=== PATIENT | female | born 1945 | race Hispanic/Latino ===

== ENCOUNTER 2017-01-04 12:33 | Day surgery (SDC) | payer MEDICARE ==
[2017-01-04 12:53] VITALS: BMI 27.4
--- NOTE | 2017-01-04 13:35 | ED PDOC ---
Arrival/HPI - General Chief Complaint: Abdominal Pain Time Seen by Provider: 01/04/17 12:54 - History of Present Illness Narrative History of Present Illness (Text): 71F c/o increasing abdominal distension over the last few days. assoc w some diffuse discomfort. she has had the exact same sx in the past requiring paracentesis. no fever or chills. she has occasional nausea but nothing changed recently. occasional loose stools also unchanged. Past Medical History - Infectious Disease Hx of Infectious Diseases: None - Tetanus Immunization Tetanus Immunization: Unknown - Cardiac Hx Cardiac Disorders: Yes Hx Cardiac Arrhythmia: Yes (Afib) Hx Hypertension: Yes Hx Pacemaker: No Hx Peripheral Edema: Yes (ble +1) - Pulmonary Hx Respiratory Disorders: Yes Hx Bronchitis: Yes - Neurological Hx Neurological Disorder: No - HEENT Hx HEENT Disorder: Yes (WEARS RX GLASSES) Hx Cataracts: Yes Hx Glaucoma: Yes - Renal Hx Renal Disorder: No - Endocrine/Metabolic Hx Endocrine Disorders: Yes Hx Diabetes Mellitus Type 2: Yes (dx 8 yrs ago) - Hematological/Oncological Hx Blood Transfusions: No Hx Blood Transfusion Reaction: No - Integumentary Hx Dermatological Disorder: No (BILATERAL LEG EDEMA, ASCITES-PARACENTESIS SITE) - Musculoskeletal/Rheumatological Hx Musculoskeletal Disorders: Yes Hx Arthritis: Yes (knees) Hx Falls: Yes - Gastrointestinal Hx Gastrointestinal Disorders: Yes (GERD,HEPC,CIRRHOSIS OF LIVER,SOPHAGEAL VARICES,PUD) Hx Gall Bladder Disease: Yes (CHOLECYUSTECTOMY) Hx Gastroesophageal Reflux: Yes Hx Liver Failure: Yes (LIVER CIRRHOSIS, Ascities) Other/Comment: esophegeal varicies,C DIFF H/O - Genitourinary/Gynecological Hx Genitourinary Disorders: Yes (ESBL IN THE URINE,UTI,URGENCY) Hx Urinary Tract Infection: Yes - Psychiatric Hx Psychophysiologic Disorder: Yes (INSOMNIA) Hx Depression: No Hx Emotional Abuse: No Hx Physical Abuse: No Hx Substance Use: No - Surgical History Hx Appendectomy: Yes Hx Cardiac Catheterization: Yes (2011) Hx Cholecystectomy: Yes Hx Coronary Stent: Yes (2011) Hx Hysterectomy: Yes Hx Mastectomy: (right lumpectomy) - Anesthesia Hx Anesthesia: Yes Hx Anesthesia Reactions: No Hx Malignant Hyperthermia: No - Suicidal Assessment Feels Threatened In Home Enviroment: No Family/Social History Family/Social History: Other (nc) Smoking Status: Never Smoked Hx Alcohol Use: No Hx Substance Use: No Hx Substance Use Treatment: No Allergies/Home Meds Allergies/Adverse Reactions: Allergies ciprofloxacin Allergy (Severe, Verified 01/04/17 12:53) RASH nitrofurantoin Allergy (Severe, Verified 01/04/17 12:53) RASH Sulfa (Sulfonamide Antibiotics) Allergy (Severe, Verified 01/04/17 12:53) RASH Home Medications: Home Meds Medication Instructions Recorded Confirmed Insulin Detemir [Levemir] 20 unit SC DAILY 09/27/13 01/04/17 Latanoprost 0.005% Opht [Xalatan 1 drp OU HS 09/27/13 01/04/17 Opht] Apixaban [Eliquis] 5 mg PO DAILY 01/08/15 01/04/17 Ramipril [Altace] 10 mg PO DAILY 01/08/15 01/04/17 Letrozole [Femara] 2.5 mg PO DAILY 02/27/16 01/04/17 Insulin Aspart, Recombinant 10 units SUBCUT AC 08/03/16 01/04/17 [Novolog] Nadolol [Corgard] 20 mg PO BID 08/03/16 01/04/17 Dapagliflozin Propanediol [Farxiga] 5 mg PO DAILY 01/04/17 01/04/17 Review of Systems - Physician Review All systems were reviewed & negative as marked: Yes - Review of Systems Constitutional: absent: Fevers Respiratory: absent: SOB, Cough Cardiovascular: absent: Chest Pain Gastrointestinal: Abdominal Pain. absent: Stool Changes, Vomiting, Food Intolerance Genitourinary Female: absent: Dysuria, Frequency Physical Exam Vital Signs Reviewed: Yes Vital Signs Temp Pulse Resp BP Pulse Ox 01/04/17 16:25 98.1 F 70 17 125/51 L 100 01/04/17 14:00 71 18 114/69 100 01/04/17 12:47 99 F 75 18 106/59 L 97 Appearance: Positive for: Well-Appearing, Non-Toxic, Comfortable Pain Distress: None Mental Status: Positive for: Alert and Oriented X 3 Finger Stick Blood Glucose: 230 - Systems Exam Head: Present: Atraumatic Pupils: Present: PERRL Mouth: Present: Moist Mucous Membranes Respiratory/Chest: Present: Clear to Auscultation. No: Respiratory Distress, Accessory Muscle Use Cardiovascular: Present: Regular Rate and Rhythm Abdomen: Present: Tenderness (mild diffuse), Distention (ascites), Normal Bowel Sounds, Other (soft). No: Rebound, Guarding Neurological: Present: GCS=15, Motor Func Grossly Intact, Normal Sensory Function Skin: Present: Warm, Dry Psychiatric: Present: Alert, Oriented x 3 Medical Decision Making ED Course and Treatment: 01/04/17 13:[address] Munoz who already disc w pcp Dr Saha who sent pt in for paracentesis. she can be dc afterwards. 01/04/17 16:56 pt feels much better after para. fluid analysis not consistent w infection. culture pending. - Lab Interpretations Lab Results: 01/04/17 14:35 01/04/17 15:40 Lab Results 01/04/17 15:40: Sodium 137, Potassium 4.0, Chloride 102, Carbon Dioxide 28, Anion Gap 11, BUN 15, Creatinine 0.7, Est GFR ( Amer) > 60, Est GFR (Non- Af Amer) > 60, Random Glucose 206 H, Calcium 8.6, Total Bilirubin 1.3, AST 38, ALT 36, Alkaline Phosphatase 80, Total Protein 6.8, Albumin 3.0, Globulin 3.8, Albumin/Globulin Ratio 0.8 L, Lipase 129 01/04/17 14:55: Fluid Source Peritoneal, Fluid Appearance Clear, Fluid WBC 105.0 , Fluid RBC 2000.0 H, Fluid Tot Cell Count 100 H, Fluid Neutrophils 7.6 H, Fluid Lymphocytes 92.4 H, Fld Monocyte/Macrophag 0, Fluid Comment TEST NOT PERFORMED 01/04/17 14:35: WBC 4.0 L D, RBC 3.99, Hgb 11.9 L, Hct 36.0, MCV 90.2, MCH 29.8 , MCHC 33.1, RDW 14.4, Plt Count 56 L, MPV 10.0, Gran % 70.4 H, Lymph % (Auto) 19.5 L, [place] % (Auto) 7.3 H, Eos % (Auto) 2.5, Baso % (Auto) 0.3, Gran # 2.81, Lymph # 0.8 L, [place] # 0.3, Eos # 0.1, Baso # 0.01 01/04/17 13:13: POC Glucose (mg/dL) 250 H - RAD Interpretation Radiology Orders: 01/04/17 13:09 PARACENTESIS [US] Stat Disposition/Present on Arrival - Present on Arrival Any Indicators Present on Arrival: No History of DVT/PE: No History of Uncontrolled Diabetes: No Urinary Catheter: No History of Decub. Ulcer: No History Surgical Site Infection Following: None - Disposition Have Diagnosis and Disposition been Completed?: Yes Diagnosis: Ascitic fluid Disposition: HOME/ ROUTINE Disposition Time: 13:37 Patient Problems: Current Active Problems Problem Status Diagnosed Ascitic fluid Acute Condition: STABLE
[2017-01-04 14:01] VITALS: O2SAT 100
[2017-01-04 14:40] LABS: ADD MANUAL DIFF? NO
[2017-01-04 14:44] LABS: BASO # 0.01 K/mm3 (0.0-2.0); BASO % 0.3 % (0.0-3.0); EOS # 0.1 (0.0-0.7); EOS % 2.5 % (1.5-5.0); GRAN # 2.81 (1.4-6.5); GRAN % 70.4 % (50.0-68.0); LYMPH # 0.8 (1.2-3.4); LYMPH % 19.5 % (22.0-35.0); MEAN CELL VOLUME 90.2 fL (80.0-105.0); MEAN CORPUSCULAR HEMOGLOBIN 29.8 pg (25.0-35.0); MEAN CORPUSCULAR HGB CONC 33.1 g/dl (31.0-37.0); MONO # 0.3 (0.1-0.6); MONO % 7.3 % (1.0-6.0); PLATELET COUNT 56 10^3/uL (120.0-450.0); RED CELL DISTRIBUTION WIDTH 14.4 % (11.5-14.5)
[2017-01-04 15:20] LABS: BODY FLUID TYPE PERITONEAL
[2017-01-04 16:11] LABS: ALB/GLOB RATIO 0.8 (1.1-1.8); ALKALINE PHOSPHATASE 80 U/L (38-133); ALT/SGPT 36 U/L (7-56); AST/SGOT 38 U/L (15-39); BILIRUBIN,TOTAL 1.3 mg/dL (0.2-1.3); BLOOD UREA NITROGEN 15 mg/dL (7-21); CALCIUM 8.6 mg/dL (8.4-10.5); CARBON DIOXIDE 28 mmol/L (21-33); CHLORIDE 102 mmol/L (98-107); GFR AFRICAN-AMERICAN > 60; GLUCOSE,RANDOM 206 mg/dL (70-110); LIPASE 129 U/L (23-300); SODIUM 137 mmol/L (132-148); TOTAL PROTEIN 6.8 g/dL (5.8-8.3)
--- NOTE | 2017-01-04 16:19 | US ---
PROCEDURE: Ultrasound guided paracentesis. HISTORY: Cirrhosis. Recurrent ascites with abdominal pain and distension. Recurrent breast carcinoma. PHYSICIAN(S): Kenny Munoz MD. TECHNIQUE: The relative risks and indications for the procedure were explained to the patient and informed written consent obtained. Sonography of the abdomen was performed in a supine position. This revealed a moderate amount of non-loculated ascites, greatest in the right lower quadrant. A puncture site was selected and the area was prepped and draped in the usual sterile fashion. 1% Xylocaine was used to anesthetize the skin and soft tissues. A 7 [place] paracentesis catheter was trocared into the right lower quadrantand 3600 cc of jose fluid aspirated. A cytology a microbiology specimen were sent. IMPRESSION: Ultrasound-guided paracentesis in the right lower quadrant. 3600 cc of fluid were aspirated. Appropriate labs were sent.
[2017-01-04 16:22] LABS: BF GROSS APPEARANCE CLEAR (CLEAR); BODY FLUID TOTAL COUNT 100 (0-0)
[2017-01-04 16:26] VITALS: BP 125/51; PULSE 70; RESP 17; TEMP 98.1
== END 2017-01-04 17:19 | disposition short-term general hospital (02) ==
LOC: ED 12:33 → SDSVAS 15:06
PROVIDERS: ATTEND Radiology Vascular & Interventional Radiology
DX: R18.8 Other ascites (principal); R10.9 Unspecified abdominal pain; I48.91 Unspecified atrial fibrillation; I10 Essential (primary) hypertension; J40 Bronchitis, not specified as acute or chronic; H26.9 Unspecified cataract; H40.9 Unspecified glaucoma; E11.9 Type 2 diabetes mellitus without complications; M19.90 Unspecified osteoarthritis, unspecified site; K21.9 Gastro-esophageal reflux disease without esophagitis; B19.20 Unspecified viral hepatitis C without hepatic coma; K74.60 Unspecified cirrhosis of liver; I85.00 Esophageal varices without bleeding; Z90.49 Acquired absence of other specified parts of digestive tract; Z86.19 Personal history of other infectious and parasitic diseases; Z87.440 Personal history of urinary (tract) infections; G47.00 Insomnia, unspecified; Z95.5 Presence of coronary angioplasty implant and graft; Z90.710 Acquired absence of both cervix and uterus; Z79.01 Long term (current) use of anticoagulants; Z79.4 Long term (current) use of insulin; Z87.11 Personal history of peptic ulcer disease; R40.2412 Glasgow coma scale score 13-15, at arrival to emergency department; Z85.3 Personal history of malignant neoplasm of breast

== ENCOUNTER 2018-03-29 16:24 | Inpatient (IN) | payer MEDICARE ==
[2018-03-29 16:52] VITALS: BMI 25.1
--- NOTE | 2018-03-29 17:24 | ED PDOC ---
Arrival/HPI - General Chief Complaint: Abdominal Pain Time Seen by Provider: 03/29/18 16:53 Historian: Patient - History of Present Illness Narrative History of Present Illness (Text): 03/29/18 16:50 A 72 year old female, whose past medical history includes liver cirrhosis, presents to the emergency department complaining of abdominal pain. Patient reports she saw her PMD for checkup for pain, and was instructed to go to the ER immediately afterwards. She notes also experiencing lightheadedness, nausea, fever, and no cough. Patient denies any vomiting, dysuria, shortness of breath, or any other complaints. PMD: Dr. Saha Past Medical History - Provider Review Nursing Documentation Reviewed: Yes - Infectious Disease Hx of Infectious Diseases: None - Tetanus Immunization Tetanus Immunization: Unknown - Reproductive Menopause: Yes - Cardiac Hx Cardiac Disorders: Yes Hx Cardiac Arrhythmia: Yes (Afib) Hx Hypertension: Yes Hx Pacemaker: No Hx Peripheral Edema: Yes (ble +1) - Pulmonary Hx Respiratory Disorders: Yes Hx Bronchitis: Yes - Neurological Hx Neurological Disorder: No - HEENT Hx HEENT Disorder: Yes (WEARS RX GLASSES) Hx Cataracts: Yes Hx Glaucoma: Yes - Renal Hx Renal Disorder: No - Endocrine/Metabolic Hx Endocrine Disorders: Yes Hx Diabetes Mellitus Type 2: Yes (dx 8 yrs ago) - Hematological/Oncological Hx Blood Transfusions: No Hx Blood Transfusion Reaction: No - Integumentary Hx Dermatological Disorder: No (BILATERAL LEG EDEMA, ASCITES-PARACENTESIS SITE) - Musculoskeletal/Rheumatological Hx Musculoskeletal Disorders: Yes Hx Arthritis: Yes (knees) Hx Falls: Yes - Gastrointestinal Hx Gastrointestinal Disorders: Yes (GERD,HEPC,CIRRHOSIS OF LIVER,SOPHAGEAL VARICES,PUD) Hx Gall Bladder Disease: Yes (CHOLECYUSTECTOMY) Hx Gastroesophageal Reflux: Yes Hx Liver Failure: Yes (LIVER CIRRHOSIS, Ascities) Other/Comment: esophegeal varicies,C DIFF H/O - Genitourinary/Gynecological Hx Genitourinary Disorders: Yes (ESBL IN THE URINE,UTI,URGENCY) Hx Urinary Tract Infection: Yes - Psychiatric Hx Psychophysiologic Disorder: Yes (INSOMNIA) Hx Depression: No Hx Emotional Abuse: No Hx Physical Abuse: No Hx Substance Use: No - Surgical History Hx Appendectomy: Yes Hx Cardiac Catheterization: Yes (2011) Hx Cholecystectomy: Yes Hx Coronary Stent: Yes (2011) Hx Hysterectomy: Yes Hx Mastectomy: (right lumpectomy) - Anesthesia Hx Anesthesia: Yes Hx Anesthesia Reactions: No Hx Malignant Hyperthermia: No - Suicidal Assessment Feels Threatened In Home Enviroment: No Family/Social History - Physician Review Nursing Documentation Reviewed: Yes Family/Social History: No Known Family HX Smoking Status: Never Smoked Hx Alcohol Use: No Hx Substance Use: No Hx Substance Use Treatment: No Allergies/Home Meds Allergies/Adverse Reactions: Allergies ciprofloxacin Allergy (Severe, Verified 03/29/18 16:52) RASH nitrofurantoin Allergy (Severe, Verified 03/29/18 16:52) RASH Sulfa (Sulfonamide Antibiotics) Allergy (Severe, Verified 03/29/18 16:52) RASH Home Medications: Home Meds Medication Instructions Recorded Confirmed Insulin Detemir [Levemir] 20 unit SC DAILY 09/27/13 01/04/17 Latanoprost 0.005% Opht [Xalatan 1 drp OU HS 09/27/13 01/04/17 Opht] Apixaban [Eliquis] 5 mg PO DAILY 01/08/15 01/04/17 Ramipril [Altace] 10 mg PO DAILY 01/08/15 01/04/17 Letrozole [Femara] 2.5 mg PO DAILY 02/27/16 01/04/17 Insulin Aspart, Recombinant 10 units SUBCUT AC 08/03/16 01/04/17 [Novolog] Nadolol [Corgard] 20 mg PO BID 08/03/16 01/04/17 Dapagliflozin Propanediol [Farxiga] 5 mg PO DAILY 01/04/17 01/04/17 Review of Systems - Physician Review All systems were reviewed & negative as marked: Yes - Review of Systems Constitutional: Fevers Respiratory: absent: SOB Gastrointestinal: Abdominal Pain, Nausea. absent: Vomiting Genitourinary Female: absent: Dysuria Neurological: Dizziness (lightheadedness) Physical Exam - Physical Exam Narrative Physical Exam (Text): Constitutional: No acute distress. Head: Normocephalic. Atraumatic. Eyes: PERRL. ENT: Moist mucous membranes. Neck: Supple. Cardiovascular: Tachycardic. Chest: No tenderness. Respiratory: Clear to auscultation bilaterally. GI: Soft. Diffuse tenderness without guarding. Distended. Back: No CVA tenderness. Musculoskeletal: No tenderness or swelling of extremities. Skin: No rash. Neurologic: Alert, no focal deficit. Vital Signs Reviewed: Yes Vital Signs Temp Pulse Resp BP Pulse Ox 03/29/18 21:24 98 H 138/74 03/29/18 16:47 102.8 F H 116 H 20 157/79 H 98 Temperature: Febrile Blood Pressure: Hypertensive Pulse: Tachycardic Respiratory Rate: Normal Appearance: Positive for: Well-Appearing Pain Distress: None Mental Status: Positive for: Alert and Oriented X 3 Medical Decision Making ED Course and Treatment: 03/29/18 16:54 Impression: 72 year old female with abdominal pain, fever, and ascites. Plan: -- EKG -- Chest X-ray -- Labs -- Venous Blood Gas -- Blood Culture -- Urine Culture -- Urinalysis -- Reassess and disposition Prior Visits: Notes and results from previous visits were reviewed. Patient was last seen in the emergency department on 01/04/2017 for abdominal distention. Patient was discharged home with diagnosis of ascitic fluid. Progress Notes: 03/29/2018 17:29 Chest X-ray IMPRESSION: Stable chronic prominence of the bilateral interstitial markings. no focal consolidation or pleural effusion. Dictator: Greg Saha recommends Dr. Munoz and Dr. [place] for paracentesis, accepts admission to her service. Cefepime/Flagyl initiated. Admission was delayed as patient was difficult to obtain IV access and refused any access in the groin/legs/neck. US for peripheral IV was attempted without success, and patient had access established by midline at 7pm. - Lab Interpretations Lab Results: 03/29/18 20:35 03/29/18 20:35 Lab Results 03/29/18 20:35: Sodium 138, Chloride 103, Potassium 4.1, Carbon Dioxide 24, Anion Gap 14, BUN 25 H, Creatinine 0.8, Est GFR ( Amer) > 60, Est GFR ( Non-Af Amer) > 60, Random Glucose 290 H, Calcium 8.3 L, Total Bilirubin 4.4 H, AST 26, ALT 26, Alkaline Phosphatase 63, Total Protein 6.8, Albumin 3.1, Globulin 3.7, Albumin/Globulin Ratio 0.9 L, Lipase 22 L 03/29/18 20:35: pO2 84 H, VBG pH 7.43, VBG pCO2 39.0 L, VBG HCO3 25.9, VBG Total CO2 27.1, VBG O2 Sat (Calc) 99.6 H, VBG Base Excess 1.5, VBG Potassium 4.1 , Sodium 136.0, Chloride 106.0, Glucose 312 H, Lactate 2.0, FiO2 21.0, Venous Blood Potassium 4.1 03/29/18 20:35: PT 18.4 H, INR 1.60 H, APTT 31.1 03/29/18 20:35: WBC 10.0 D, RBC 3.17 L, Hgb 9.1 L, Hct 27.4 L, MCV 86.4, MCH 28.7, MCHC 33.2, RDW 15.6 H, Plt Count 50 L, MPV 9.5, Gran % 89.9 H, Lymph % ( Auto) 5.9 L, [place] % (Auto) 3.9, Eos % (Auto) 0.2 L, Baso % (Auto) 0.1, Gran # 9.02 H, Lymph # (Auto) 0.6 L, [place] # (Auto) 0.4, Eos # (Auto) 0.0, Baso # (Auto ) 0.01 - RAD Interpretation Radiology Orders: 03/29/18 16:55 CHEST PORTABLE [RAD] Stat - Medication Orders Current Medication Orders: Acetaminophen (Tylenol 325mg Tab) 650 mg PO Q6H PRN PRN Reason: Fever >100.4 F Cefepime HCl (Maxipime 1gm) 1 gm in 100 mls @ 100 mls/hr IVPB Q12 SINAN PRN Reason: Protocol Metronidazole (Flagyl) 250 mg in 50 mls @ 100 mls/hr IVPB Q8 SINAN PRN Reason: Protocol Stop: 04/03/18 22:01 Sodium Chloride (Sodium Chloride 0.45%) 1,000 mls @ 75 mls/hr IV .[id number] [facility] Last Admin: 03/29/18 21:16 Dose: 75 mls/hr eMAR Start Stop Document 03/29/18 21:16 RD (Rec: 03/29/18 21:16 RD [id number]) Intravenous Solution Start Date 03/29/18 Start Time 21:16 Insulin Human Lispro (Humalog Med) 0 units SC ACHS SINAN PRN Reason: Protocol Insulin Human Regular (Humulin R Med) 0 units SC ACHS SINAN PRN Reason: Protocol Letrozole (Femara) 2.5 mg PO DAILY SINAN Nadolol (Corgard) 20 mg PO BID SINAN Last Admin: 03/29/18 21:24 Dose: 20 mg MAR Pulse and Blood Pressure Document 03/29/18 21:24 RD (Rec: 03/29/18 21:25 RD [id number]) Pulse Pulse Rate (60-90) 98 Blood Pressure Blood Pressure (100/60-150/90) 138/74 Ondansetron HCl (Zofran Inj) 4 mg IVP Q6H PRN PRN Reason: Nausea/Vomiting Pantoprazole Sodium (Protonix Inj) 40 mg IVP DAILY SINAN - Scribe Statement The provider has reviewed the documentation as recorded by the Samanta Alfonso Provider Scribe Attestation: All medical record entries made by the Scribe were at my direction and personally dictated by me. I have reviewed the chart and agree that the record accurately reflects my personal performance of the history, physical exam, medical decision making, and the department course for this patient. I have also personally directed, reviewed, and agree with the discharge instructions and disposition. Disposition/Present on Arrival - Present on Arrival Any Indicators Present on Arrival: No History of DVT/PE: No History of Uncontrolled Diabetes: No Urinary Catheter: No History of Decub. Ulcer: No History Surgical Site Infection Following: None - Disposition Have Diagnosis and Disposition been Completed?: Yes Diagnosis: Ascitic fluid, Fever Disposition: HOSPITALIZED Disposition Time: 21:28 Patient Plan: Admission, Telemetry Condition: GUARDED Forms: [employer] (Guatemalan)
--- NOTE | 2018-03-29 17:30 | RAD ---
HISTORY: fever COMPARISON: Chest radiograph dated 08/14/2015. FINDINGS: LUNGS: Stable chronic prominence of the bilateral interstitial markings. No focal consolidation. PLEURA: No significant pleural effusion identified, no pneumothorax apparent. CARDIOVASCULAR: Atherosclerotic aortic calcifications. Cardiomediastinal silhouette stably enlarged. OSSEOUS STRUCTURES: Unchanged. VISUALIZED UPPER ABDOMEN: Normal. OTHER FINDINGS: Right axillary surgical clips. IMPRESSION: Stable chronic prominence of the bilateral interstitial markings. No focal consolidation or pleural effusion.
[2018-03-29 21:03] LABS: VENOUS BLOOD GAS BASE EXCESS 1.5 mmol/L (0.0-2.0); VENOUS BLOOD GAS PO2 84 mm/Hg (30-55); VENOUS BLOOD PH 7.43 (7.32-7.43)
[2018-03-29 21:06] LABS: BASO # 0.01 K/mm3 (0.0-2.0); BASO % 0.1 % (0.0-3.0); EOS % 0.2 % (1.5-5.0); GRAN # 9.02 (1.4-6.5); GRAN % 89.9 % (50.0-68.0); HEMOGLOBIN 9.1 g/dL (12.0-16.0); LYMPH # 0.6 (1.2-3.4); LYMPH % 5.9 % (22.0-35.0); MEAN CELL VOLUME 86.4 fl (80.0-105.0); MEAN CORPUSCULAR HEMOGLOBIN 28.7 pg (25.0-35.0); MEAN CORPUSCULAR HGB CONC 33.2 g/dl (31.0-37.0); MEAN PLATELET VOLUME 9.5 fl (7.0-11.0); MONO # 0.4 (0.1-0.6); MONO % 3.9 % (1.0-6.0); RBC 3.17 10^6/uL (3.5-6.1); RED CELL DISTRIBUTION WIDTH 15.6 % (11.5-14.5)
[2018-03-29 21:15] LABS: ALB/GLOB RATIO 0.9 (1.1-1.8); ALBUMIN 3.1 g/dL (3.0-4.8); ALT/SGPT 26 U/L (7-56); AST/SGOT 26 U/L (14-36); BLOOD UREA NITROGEN 25 mg/dL (7-21); CALCIUM 8.3 mg/dL (8.4-10.5); GFR AFRICAN-AMERICAN > 60; GFR NON-AFRICAN AMERICAN > 60; LIPASE 22 U/L (23-300)
[2018-03-29] MEDS: Sodium Chloride 0.45% 1,000 ML IV SCH (21:16)
[2018-03-29 21:18] LABS: INR 1.6 (0.93-1.08); PARTIAL THROMBOPLASTIN TIME 31.1 Seconds (25.1-36.5); PROTHROMBIN TIME 18.4 SECONDS (9.4-12.5)
[2018-03-29] MEDS ORDERED: Insulin Reg-MEDIUM-Coverage SC SCH (22:00)
[2018-03-29] MEDS: Insulin Lispro (humaLOG) MEDIUM Coverage SC SCH (22:44)
[2018-03-29] MEDS: metroNIDAZOLE IV 250mg/50 ml 250 MG/50 ML BAG IVPB SCH (22:45)
[2018-03-29] MEDS: Cefepime 1gm in NS 100ml 1 GM/100 ML BAG IVPB SCH (23:25)
[2018-03-30 00:17] LABS: URINE BILIRUBIN NEGATIVE (NEGATIVE); URINE BLOOD LARGE (NEGATIVE); URINE GLUCOSE (UA) >=1000 mg/dL (NEGATIVE); URINE LEUKOCYTE ESTERASE NEGATIVE Leu/uL (NEGATIVE); URINE PROTEIN 30 mg/dL (<30 mg/dL)
[2018-03-30 00:19] LABS: URINE APPEARANCE CLEAR (CLEAR); URINE COLOR YELLOW (YELLOW)
[2018-03-30 00:29] LABS: URINE WBC 0 - 2 /hpf (0-6)
[2018-03-30 00:30] LABS: URINE BACTERIA RARE (NEG)
--- NOTE | 2018-03-30 04:13 | HP ---
HISTORY OF PRESENT ILLNESS: The patient is a 72-year-old lady who was seen in office earlier complaining of abdominal pain, discomfort, nausea, unable to hold anything. She is extremely weak and tired. The patient had cirrhotic ascites and paracentesis done last week . Since then, she is having abdominal pain, vague and is severe at times. Pain is diffused. No relation with eating. Has no appetite. Has vomited few times. Does complain of having fever. She had almost 99 plus fever last night and in office it was 99.2. So she was referred to emergency room for further evaluation PAST MEDICAL HISTORY: 1. She has very long complicated history including coronary artery disease, status post multiple angioplasty, 2. Chronic AFib, on anticoagulant. 3. Hypertension. 4. History of peptic ulcer disease with bleeding ulcer in the past. 5. Cirrhosis of liver. 6. Thrombocytopenia. 7. Anemia. 8. Chronic kidney disease. 9. History of breast CA, status post mastectomy, just recently finished chemotherapy. 10. Thrombocytopenia. 11. History of glaucoma. 12. Non-insulin dependent diabetes. ALLERGIES: SHE IS ALLERGIC TO CIPRO, NITROFURANTOIN, SULFONAMIDE. MEDICATIONS AT HOME: She is on spironolactone 50 mg twice a day, ramipril 10 mg daily, nadolol 20 mg twice a day, Sonata 2.5 daily, Xalatan eyedrops. She is on Levemir 20 units at bedtime, insulin 10 units before each meal. She is on 5 mg daily, Eliquis 5 mg daily. SOCIAL HISTORY: She is , lives with her , just smoked in the remote past. She used to socially drink. REVIEW OF SYSTEMS: Significant for generalized weakness, poor appetite, nausea and vomiting and having fever at home. PHYSICAL EXAMINATION: GENERAL: She is awake, alert, oriented. VITAL SIGNS: Temperature of 102.8, pulse 160, respiration 20, blood pressure 157/79. LUNGS: Bilateral fair airflow. No rhonchi or crackle. HEART: S1, S2 audible. ABDOMEN: Soft. She has ascites. She is status post right radical mastectomy with lymph node dissection. Bilateral leg +1 edema. LABORATORY DATA: Labs are pending yet. X-ray of chest, chronic prominence of bilateral interstitial markings. No focal consolidation or pleural effusion. ASSESSMENT AND PLAN: 1. Abdominal pain, status post paracentesis a week ago. Rule out spontaneous bacterial peritonitis. 2. Chronic atrial fibrillation. 3. Cardiac cirrhosis. 4. Chronic ascites requiring intermittent paracentesis. 5. Coronary artery disease, status post multiple angioplasty. 6. Peptic ulcer disease. 7. History of carcinoma of breast, status post right lumpectomy. She recently finished chemotherapy. 8. Chronic anemia. 9. Thrombocytopenia. PLAN: I will start empirically on IV antibiotic and hydrate her urgently, Zofran as needed. GI consult by Dr. Martines. Cardiology consult by Dr. Meredith has been requested. We will follow up electrolytes, follow up H and H. Wilda Saha MD
[2018-03-30] MEDS: metroNIDAZOLE IV 250mg/50 ml 250 MG/50 ML BAG IVPB SCH (05:21)
--- NOTE | 2018-03-30 07:29 | CP.PCM.CON ---
History of Present Illness - History of Present Illness History of Present Illness: GI Consult Note for Dr. Ge Wells Deuce Valladares, PGY-3 IM This is a 72 yo F with extensive PMH, including Cirrhosis (suspected 2/2 Hep C) with recurrent ascites, chronic AFib on Eliquis, CAD s/p stent, HTN, DM, PUD with hx bleeding ulcer, CKD, and Breast Ca s/p partial resection and chemo, and anemia who presents with complaint of worsening abdominal pain, febrile sensation. Patient reports that she underwent a routine paracentesis approx 1 week ago (undergoes biweekly paracentesis for chronic ascites), but instead of the relief she customarily gets for several days post-paracentesis, she has felt malaised since with worsening abdominal pain and intermittent sense of abdominal burning. Reports nausea and minimal PO intake for last 3 days, but is able to tolerate PO fluids (water mostly), and denies any episodes of emesis , melena, hematochezia. Reports chronic diarrhea, unchanged, for which her outpt GI physician instructed her to take Imodium (reports no relief of sx). No changes in stool color, no jaundice/scleral icterus reported by pt or at bedside. Still making regular urine, no dysuria, hematuria, frequency, cloudy or foul smelling urine. Pt on eliquis for chronic afib, so easily bruises at baseline, but does not report any change from this baseline. Subjective fevers at home, only measured today prior to presentation to [facility] [place] [facility], 100.6F at home orally (102.8F orally on arrival to ED). No appreciable erythema /redness or point tenderness of abdomen as per pt. All other ROS in 12-system review negative. Last EGD was 1 yr ago as per patient, not in records system here. Pt reports most of her current medical workups and procedures are done in [place]. Last EGD on file here is from 2011 (grade II distal esophageal varices, 5mm polyp in distal stomach, portal hypertensive gastropathy in body and fundus, no biopsy due to low plt count) PMH: as above PSH: bi-weekly paracentesis, appendectomy, cholecystectomy, hysterectomy, Cardiac cath and stent placement, R breast lumpectomy Soc Hx: denies tobacco, alcohol, illicits, lives with PMD: Dr. Saha GI: Dr. Chris Self ([place]), previously Dr. Martines Review of Systems - Review of Systems All systems: reviewed and no additional remarkable complaints except (as per HPI ) Past Patient History - Infectious Disease Hx of Infectious Diseases: None - Tetanus Immunizations Tetanus Immunization: Unknown - Past Social History Smoking Status: Never Smoked - CARDIAC Hx Cardiac Disorders: Yes Hx Cardia Arrhythmia: Yes (Afib) Hx Hypertension: Yes Hx Pacemaker: No Hx Peripheral Edema: Yes - PULMONARY Hx Respiratory Disorders: No (denies) - NEUROLOGICAL Hx Neurological Disorder: No - HEENT Hx HEENT Problems: Yes (WEARS RX GLASSES) Hx Cataracts: Yes (B/L SX) Hx Glaucoma: Yes (B/L SX) - RENAL Hx Chronic Kidney Disease: No - ENDOCRINE/METABOLIC Hx Endocrine Disorders: Yes Hx Diabetes Mellitus Type 2: Yes (dx 8 yrs ago) - HEMATOLOGICAL/ONCOLOGICAL Hx Blood Disorders: Yes Hx Anemia: Yes Hx Cancer: Yes (breast) Hx Chemotherapy: Yes Hx Cirrhosis: Yes (ASCITIS) Hx Hepatitis C: Yes (from blood transfusion) - INTEGUMENTARY Hx Dermatological Problems: No - MUSCULOSKELETAL/RHEUMATOLOGICAL Hx Musculoskeletal Disorders: Yes Hx Arthritis: Yes (knees) Hx Fractures: Yes (RIGHT ANKLE) - GASTROINTESTINAL Hx Gastrointestinal Disorders: Yes Hx Gall Bladder Disease: Yes Hx Gastroesophageal Reflux: Yes Hx Liver Failure: Yes - GENITOURINARY/GYNECOLOGICAL Hx Genitourinary Disorders: Yes Hx Urinary Tract Infection: Yes - PSYCHIATRIC Hx Psychophysiologic Disorder: Yes (INSOMNIA) Hx Depression: No Hx Emotional Abuse: No Hx Physical Abuse: No - SURGICAL HISTORY Hx Surgeries: Yes Hx Appendectomy: Yes Hx Cardiac Catheterization: Yes (2011) Hx Cholecystectomy: Yes Hx Coronary Stent: Yes (2011) Hx Hysterectomy: Yes Hx Mastectomy: Yes (RIGHT) Hx Orthopedic Surgery: No - ANESTHESIA Hx Anesthesia: Yes Hx Anesthesia Reactions: No Hx Malignant Hyperthermia: No Meds Allergies/Adverse Reactions: Allergies Allergy/AdvReac Type Severity Reaction Status Date / Time ciprofloxacin Allergy Severe RASH Verified 03/29/18 16:52 nitrofurantoin Allergy Severe RASH Verified 03/29/18 16:52 Sulfa (Sulfonamide Allergy Severe RASH Verified 03/29/18 16:52 Antibiotics) - Medications Medications: Current Medications Acetaminophen (Tylenol 325mg Tab) 650 mg PO Q6H PRN PRN Reason: Fever >100.4 F Cefepime HCl (Maxipime 1gm) 1 gm in 100 mls @ 100 mls/hr IVPB Q12 SINAN PRN Reason: Protocol Last Admin: 03/29/18 23:25 Dose: 100 mls/hr Metronidazole (Flagyl) 250 mg in 50 mls @ 100 mls/hr IVPB Q8 SINAN PRN Reason: Protocol Stop: 04/03/18 22:01 Last Admin: 03/30/18 05:21 Dose: 100 mls/hr Sodium Chloride (Sodium Chloride 0.45%) 1,000 mls @ 75 mls/hr IV .[id number] [facility] Last Admin: 03/29/18 21:16 Dose: 75 mls/hr Insulin Human Lispro (Humalog Med) 0 units SC ACHS SINAN PRN Reason: Protocol Last Admin: 03/29/18 22:44 Dose: Not Given Letrozole (Femara) 2.5 mg PO DAILY [facility] Nadolol (Corgard) 20 mg PO BID [facility] Last Admin: 03/29/18 21:24 Dose: 20 mg Ondansetron HCl (Zofran Inj) 4 mg IVP Q6H PRN PRN Reason: Nausea/Vomiting Pantoprazole Sodium (Protonix Inj) 40 mg IVP DAILY [facility] Physical Exam - Constitutional Appears: Non-toxic, No Acute Distress - Head Exam Head Exam: ATRAUMATIC, NORMAL INSPECTION, NORMOCEPHALIC - Eye Exam Eye Exam: EOMI, Normal appearance. absent: Conjunctival injection, Scleral icterus Pupil Exam: absent: Fixed, Irregular - ENT Exam ENT Exam: Mucous Membranes Moist - Neck Exam Neck exam: Positive for: Normal Inspection - Respiratory Exam Respiratory Exam: Clear to Auscultation Bilateral, NORMAL BREATHING PATTERN. absent: Accessory Muscle Use, Chest Wall Tenderness, Decreased Breath Sounds, Rales, Rhonchi, Wheezes, Respiratory Distress, Stridor - Cardiovascular Exam Cardiovascular Exam: REGULAR RHYTHM (hx paroxysmal afib, regular rhythm vs rate controlled with HR 60's during exam), RRR, +S1, +S2. absent: Bradycardia, Tachycardia, Irregular Rhythm, JVD, +S4 - GI/Abdominal Exam Additional comments: distant-sounding but definitely present bowel sounds distended abdomen, position dependent with appreciable fluid wave, firm but not rigid abdomen warm to palpation as compared to trunk/extremities/back mild tenderness diffusely worsened with palpation, most predominantly right upper and lower quadrants, not guarding unable to palpate liver or spleen due to abdominal distension - Extremities Exam Extremities exam: Positive for: pedal edema (+1 pitting edema in bilateral LE from ankles to bottom 2/3rd of shins), pedal pulses present (+2 dorsalis pedis, unable to palpate posterior tibials). Negative for: calf tenderness, joint swelling, tenderness - Back Exam Back exam: absent: CVA tenderness (L), CVA tenderness (R), paraspinal tenderness - Neurological Exam Additional comments: awake and alert, following all commands appropriately, moving all extremities spontaneously able to change position from lying in bed to sitting on edge of bed and vice- versa without overt difficulty or issue, motor appears grossly intact - Psychiatric Exam Psychiatric exam: Normal Affect, Normal Mood - Skin Skin Exam: Dry, Intact, Normal Color, Warm Results - Vital Signs Recent Vital Signs: Last Vital Signs Temp 97.8 F 03/30/18 05:38 Pulse 64 03/30/18 05:38 Resp 18 03/30/18 05:38 BP 110/61 03/30/18 05:38 Pulse Ox 99 03/30/18 05:38 - Labs Result Diagrams: 03/30/18 08:00 03/30/18 08:00 Labs: Laboratory Results - last 24 hr 03/29/18 22:21 POC Glucose (mg/dL) 287 H Assessment & Plan - Assessment and Plan (Free Text) Assessment: This is a 72 yo F with extensive PMH, including Cirrhosis (suspected 2/2 Hep C) with recurrent ascites, chronic AFib on Eliquis, CAD s/p stent, HTN, DM, PUD with hx bleeding ulcer, CKD, and Breast Ca s/p partial resection and chemo, and anemia who presents with complaint of worsening abdominal pain, febrile sensation. GI was consulted for symptoms highly concerning for SBP. Plan: including Cirrhosis (suspected 2/2 Hep C) with recurrent ascites chronic AFib on Eliquis DM PUD with hx bleeding ulcer CKD Breast Ca s/p partial resection and chemo Thrombocytopenia Suspected SBP, possible sepsis -Story and symptoms highly concerning for SBP, patient empirically covered with Cefepime and Flagyl pending ID's recs -CT abd/pelvis ordered, f/u -Thrombocytopenia to 38, likely 2/2 cirrhosis +/- effect of sepsis; recommend holding Eliquis given hx GI bleed, thrombocytopenia, and likely pending paracentesis -WBCs only 10 on admission, but as per prior charting, pt is frequently leukopenic between 2-4, so WBC count of 10 may represent an elevation 2/2 infectious process in this pt -IR consulted for paracentesis, ID also following this pt -Hep C PCR ordered to confirm presence of Hep C in this pt (r/o RA misdiagnosed as hep C due to test cross-reactivity); AFP ordered -Hold further tylenol due to cirrhosis, use active cooling measures as needed -Pancreatitic enzyme supplementation ordered, 5000 units with meals -Abd Duplex US ordered, f/u Patient seen, reviewed, and discussed with attending, Dr. Carolina
[2018-03-30] MEDS: Sodium Chloride 0.45% 1,000 ML IV SCH (07:40)
[2018-03-30] MEDS: Insulin Lispro (humaLOG) MEDIUM Coverage SC SCH ×4 (07:43→22:00)
[2018-03-30 08:25] LABS: VENOUS BLOOD GAS BASE EXCESS 2.7 mmol/L (0.0-2.0); VENOUS BLOOD GAS PO2 110 mm/Hg (30-55); VENOUS BLOOD PH 7.47 (7.32-7.43)
[2018-03-30 09:20] LABS: BASO # 0.01 K/mm3 (0.0-2.0); BASO % 0.2 % (0.0-3.0); EOS # 0.1 (0.0-0.7); EOS % 1.6 % (1.5-5.0); GRAN % 83.8 % (50.0-68.0); HEMOGLOBIN 8.8 g/dL (12.0-16.0); LYMPH # 0.3 (1.2-3.4); LYMPH % 6.4 % (22.0-35.0); MEAN CELL VOLUME 86.6 fl (80.0-105.0); MEAN CORPUSCULAR HEMOGLOBIN 29.5 pg (25.0-35.0); MEAN CORPUSCULAR HGB CONC 34.1 g/dl (31.0-37.0); MEAN PLATELET VOLUME 9.3 fl (7.0-11.0); MONO # 0.4 (0.1-0.6); RBC 2.98 10^6/uL (3.5-6.1); RED CELL DISTRIBUTION WIDTH 15.5 % (11.5-14.5)
[2018-03-30] MEDS: Cefepime 1gm in NS 100ml 1 GM/100 ML BAG IVPB SCH (09:27)
[2018-03-30 09:39] LABS: ALB/GLOB RATIO 0.8 (1.1-1.8); ALBUMIN 2.6 g/dL (3.0-4.8); ALT/SGPT 23 U/L (7-56); AST/SGOT 21 U/L (14-36); BLOOD UREA NITROGEN 28 mg/dL (7-21); CALCIUM 7.8 mg/dL (8.4-10.5); GFR AFRICAN-AMERICAN > 60; GFR NON-AFRICAN AMERICAN > 60
[2018-03-30] MEDS ORDERED: Iohexol 240 (50 ml) ONE (09:43)
[2018-03-30 09:49] LABS: PLATELET COUNT 34 10^3/uL (120.0-450.0)
[2018-03-30 10:48] LABS: INR 1.56 (0.93-1.08); PARTIAL THROMBOPLASTIN TIME 23.9 Seconds (25.1-36.5); PROTHROMBIN TIME 18.1 SECONDS (9.4-12.5)
--- NOTE | 2018-03-30 12:57 | CT ---
PROCEDURE: CT Abdomen and Pelvis with contrast HISTORY: ABDOMINAL PAIN Relevant surgical history: Appendectomy, cholecystectomy and hysterectomy. Relevant medical history: Recurrent breast carcinoma. COMPARISON: 08/14/2015 CT abdomen and pelvis TECHNIQUE: Oral contrast only. Radiation dose: Total exam DLP = 682.28 mGy-cm. This CT exam was performed using one or more of the following dose reduction techniques: Automated exposure control, adjustment of the mA and/or kV according to patient size, and/or use of iterative reconstruction technique. FINDINGS: LOWER THORAX: Prior right mastectomy. This surgical procedure occurred since the prior study. Diffusely edematous left breast. Edema, skin thickening and possible left breast mass also identified.The changes in the left breast are new. LIVER: Cirrhotic liver markedly contracted with irregular contour. Similar findings seen previously although the liver has assumed a more contracted state since the prior study. GALLBLADDER AND BILE DUCTS: Status post cholecystectomy. No abnormality is seen in the gallbladder fossa. Bowel PANCREAS: Unremarkable. No gross lesion or ductal dilatation. SPLEEN: Splenomegaly. Orthogonal measurements 10.5 x 17.2 x 16.3 cm. ADRENALS: Unremarkable. No mass. KIDNEYS AND URETERS: Unremarkable. No hydronephrosis. No solid mass. VASCULATURE: Unremarkable. No aortic aneurysm. BOWEL: Unremarkable. No obstruction. No gross mural thickening. APPENDIX: Prior appendectomy PERITONEUM: Large volume intra-abdominal pelvic ascites. Volume of ascitic fluid is substantially larger on the current study compared to the prior examination. Mean Hounsfield unit values for the abdominal and pelvic ascites do not exceed 12. This represents uncomplicated ascitic fluid. LYMPH NODES: Slightly enlarged inguinal lymph nodes particularly on the right. No discernible abdominal or pelvic adenopathy. BLADDER: Unremarkable. REPRODUCTIVE: Prior hysterectomy BONES: No acute fracture. OTHER FINDINGS: Diffuse cutaneous subcutaneous edema and anasarca. IMPRESSION: Large volume ascites, uncomplicated. This is substantially larger than that seen previously. Progressive cirrhotic changes in the liver. Stable splenomegaly. CT findings of prior right mastectomy, increase in size of the left breast which is diffusely edematous and there is likely underlying left breast mass.
--- NOTE | 2018-03-30 14:08 | PN ---
DATE: 03/30/2018 SUBJECTIVE: The patient states that she is feeling better. She has improvement of her chills. Her temperature is improved. She has no complaints of any chest pain. No shortness of breath. PHYSICAL EXAMINATION: VITAL SIGNS: Temperature is 100.4, pulse of 60, blood pressure 132/73. GENERAL: The patient is lying in bed, flat, comfortable. HEENT: No oral lesion. Anicteric sclerae. Moist mucosa. NECK: No JVD, adenopathy, or thyromegaly. CARDIOVASCULAR: S1 and S2, regular. No murmurs, rubs, or gallops. LUNGS: Clear to auscultation bilaterally. No wheeze, rales, or rhonchi. ABDOMEN: Bowel sounds are positive. Soft, nontender and nondistended. EXTREMITIES: No cyanosis or clubbing. 1+ edema in the lower extremity. LABORATORY DATA: Cultures are pending. White count of 5, hemoglobin is 8.8, platelet count is 34. Chemistry shows a sodium of 136, potassium is 4, creatinine is 0.7. ASSESSMENT: 1. Fever. 2. Atrial fibrillation. 3. Cirrhosis. 4. Chronic ascites. 5. Coronary artery disease. 6. Peptic ulcer disease. 7. Chronic anemia. 8. Thrombocytopenia. 9. Breast cancer history. 10. Lower extremity edema. PLAN: The patient is currently admitted to the hospital. She is receiving IV fluids. I will discontinue her IV fluids at this time because she has a history of ascites. She is on nadolol for her cirrhosis and her portal hypertension. She is going to continue with letrozole. She is on meropenem for antibiotics. She is on Protonix daily. She is on Tylenol for her fever. She is on Zofran for nausea. She is on heart-healthy diet. CT of the abdomen has been ordered and is pending. She is being followed by Dr. Tran and by Dr. Carolina. She is going to need paracentesis. Dr. Kenny Munoz has been consulted. The patient does have 1+ edema in the lower extremity. The patient is not complaining of any pain. We will need to rule out subacute bacterial endocarditis. Florencio Bravo MD
[2018-03-30] MEDS: Meropenem IV 1 gm in NS 50 ML IVPB SCH ×2 (14:37→21:56)
[2018-03-30] MEDS: oxyCODONE 5 mg Immediate Release Tab PO PRN ×2 (14:48→21:56)
[2018-03-30] MEDS: Sucralfate 1 gm/10 ml Oral Susp UD PO SCH ×2 (17:18→21:56)
[2018-03-30] MEDS: Amylase/Lipase/Protease 5,000 Units ECC PO SCH (17:21)
--- NOTE | 2018-03-30 19:04 | CON ---
DATE: 03/30/2018 LOCATION: The patient is seen 275, bed 1. CHIEF COMPLAINT: Fever and abdominal pain x2 days' duration. HISTORY OF PRESENT ILLNESS: This is a 72-year-old female with a history of end-stage liver disease with liver cirrhosis secondary to hepatitis C, history of coronary artery disease, atrial fibrillation, hypertension, diabetes mellitus, anemia, history of peptic ulcer disease, GI bleed, glaucoma, cataracts, history of ESBL E. coli urinary tract infection, and pyelonephritis, who is admitted now with abdominal pain and found to have fevers of 102 and Infectious Disease consultation requested. REVIEW OF SYSTEMS: Reveals the patient's abdominal pain is diffuse, and nausea, fevers, chills. No headaches or blurred vision. No neck pain or sore throat. Review of systems reveals a 12-point review of systems is performed. PAST MEDICAL HISTORY: Significant for end-stage liver disease, liver cirrhosis, hepatitis C, atrial fibrillation, coronary artery disease, hypertension, cataract, glaucoma, diabetes, peptic ulcer disease, GI bleed, anemia, thrombocytopenia, GERD, ESBL E. coli, pyelonephritis. PAST SURGICAL HISTORY: Significant for cardiac catheterization with stent placement, right mastectomy, cholecystectomy, appendectomy. ALLERGIES: INCLUDE CIPRO, NITROFURANTOIN AND SULFA WHICH SHE DEVELOPS A RASH. MEDICATIONS AT HOME: Include Corgard, Femara, spironolactone, insulin. PHYSICAL EXAMINATION GENERAL: The patient is in bed, appearing chronically ill, weak. VITAL SIGNS: Temperature of 100.4, T max is 102.8; heart rate is 64, it was up to 114; respiratory rate of 20; blood pressure is 130/70. The patient is saturating at 96% O2. HEENT: Unremarkable. NECK: Supple. LUNGS: Have decreased breath sounds. HEART: Normal S1 and S2. ABDOMEN: Mild tenderness. No rebound, no guarding, no masses; however there is tenderness. Bowel sounds are present. LABORATORY DATA: Reveals a white count of 10,000, hemoglobin of 9, platelets of 50 and coagulation is noted. Chemistries reveal a BUN of 25, creatinine of 0.8, lipase is 22. Urinalysis is 0-2 wbc's, large blood and there is proteinuria and is negative for leukocyte esterase and negative for nitrites. Chest x-ray is reported to be interstitial markings, but negative focal consolidation. ASSESSMENT AND PLAN: A 72-year-old female with hepatitis C, end-stage liver cirrhosis, coronary artery disease, atrial fibrillation, hypertension, diabetes, peptic ulcer disease, gastrointestinal bleed and anemia, thrombocytopenia, gastroesophageal reflux disease, history of extended-spectrum beta-lactamase Escherichia coli, pyelonephritis, presenting with a temperature of 102.8, tachycardia and abdominal pain with number one as sepsis with gastrointestinal sources, must rule out spontaneous bacterial peritonitis and the patient is scheduled for a CAT scan of the abdomen and pelvis. The blood and urine cultures are ordered and we will start the patient empirically on meropenem. Pending nicolas culture results and we will follow closely with you. Must rule out underlying pneumonia also. We will order urine for Legionella antigen. We will treat the patient with meropenem. The patient's EKG reveals QTc of 477. We will follow closely with you. Minh Tran MD
[2018-03-31] MEDS: Meropenem IV 1 gm in NS 50 ML IVPB SCH ×3 (05:23→22:44)
--- NOTE | 2018-03-31 07:49 | CP.PCM.PN ---
<Deuce Valladares - Last Filed: 03/31/18 15:56> Subjective - Date & Time of Evaluation Date of Evaluation: 03/31/18 Time of Evaluation: 11:20 - Subjective Subjective: GI Progress Note for Dr. Ge Valladares, PGY-3 IM Patient seen and examined at bedside. No acute events reported overnight, remained afebrile overnight. No new complaints today; still has abdominal pain from swelling and some nausea, but both are improved as compared to yesterday. Reports some improvement with use of supplemental pancreatic enzymes. Denies chest pain, shortness of breath, emesis, PO intolerance (requested advancement to full diet, ordered by Primary team), or dysuria/hematuria. Objective - Vital Signs/Intake and Output Vital Signs (last 24 hours): Temp Pulse Resp BP Pulse Ox 98.3 F 71 20 127/66 100 03/31/18 05:53 03/31/18 05:53 03/31/18 05:53 03/31/18 05:53 03/31/18 05:53 Intake and Output: 03/31/18 03/31/18 06:59 18:59 Intake Total 460 Output Total 375 Balance 85 - Medications Medications: Current Medications Amylase (Pancrease 78061 U-5000 U-69894 U) 5,000 unit PO AC SINAN Last Admin: 03/30/18 17:21 Dose: 5,000 unit Meropenem (Merrem Iv 1 Gm Premix) 50 mls @ 100 mls/hr IVPB Q8 SINAN PRN Reason: Protocol Stop: 04/08/18 14:01 Last Admin: 03/31/18 05:23 Dose: 100 mls/hr Insulin Human Lispro (Humalog High) 0 units SC ACHS SINAN PRN Reason: Protocol Letrozole (Femara) 2.5 mg PO DAILY SINAN Last Admin: 03/30/18 09:37 Dose: 2.5 mg Nadolol (Corgard) 20 mg PO BID SINAN Last Admin: 03/30/18 17:18 Dose: 20 mg Ondansetron HCl (Zofran Inj) 4 mg IVP Q6H PRN PRN Reason: Nausea/Vomiting Oxycodone HCl (Oxycodone Immediate Release Tab) 5 mg PO Q6H PRN PRN Reason: Pain, moderate (4-7) Last Admin: 03/30/18 21:56 Dose: 5 mg Sucralfate (Carafate Oral Susp) 1 gm PO QID SINAN Last Admin: 03/30/18 21:56 Dose: 1 gm - Labs Labs: 03/30/18 08:00 03/30/18 08:00 PT 18.1 SECONDS (9.4-12.5) H 03/30/18 10:20 INR 1.56 (0.93-1.08) H 03/30/18 10:20 APTT 23.9 Seconds (25.1-36.5) L 03/30/18 10:20 - Additional Findings Additional findings: - Constitutional Appears: Non-toxic, No Acute Distress - Head Exam Head Exam: ATRAUMATIC, NORMAL INSPECTION, NORMOCEPHALIC - Eye Exam Eye Exam: EOMI, Normal appearance. absent: Conjunctival injection, Scleral icterus Pupil Exam: absent: Fixed, Irregular - ENT Exam ENT Exam: Mucous Membranes Moist - Neck Exam Neck exam: Positive for: Normal Inspection - Respiratory Exam Respiratory Exam: Clear to Auscultation Bilateral, NORMAL BREATHING PATTERN. absent: Accessory Muscle Use, Chest Wall Tenderness, Decreased Breath Sounds, Rales, Rhonchi, Wheezes, Respiratory Distress, Stridor - Cardiovascular Exam Cardiovascular Exam: RRR, +S1, +S2. absent: Bradycardia, Tachycardia, Irregular Rhythm, JVD, +S4 - GI/Abdominal Exam distant-sounding but definitely present bowel sounds distended abdomen, position dependent with appreciable fluid wave, firm but not rigid abdomen warm to palpation as compared to trunk/extremities/back mild tenderness diffusely worsened with palpation, most predominantly right upper and lower quadrants, not guarding unable to palpate liver or spleen due to abdominal distension - Extremities Exam Extremities exam: Positive for: pedal edema (+1 pitting edema in bilateral LE from ankles to bottom 2/3rd of shins). Negative for: calf tenderness, joint swelling, tenderness - Neurological Exam awake and alert, following all commands appropriately, moving all extremities spontaneously seen ambulating in halls, gait normal - Psychiatric Exam Psychiatric exam: Normal Affect, Normal Mood - Skin Skin Exam: Dry, Intact, Normal Color, Warm Assessment and Plan - Assessment and Plan (Free Text) Assessment: This is a 72 yo F with extensive PMH, including Cirrhosis (suspected 2/2 Hep C) with recurrent ascites, chronic AFib on Eliquis, CAD s/p stent, HTN, DM, PUD with hx bleeding ulcer, CKD, and Breast Ca s/p partial resection and chemo, and anemia who presents with complaint of worsening abdominal pain, febrile sensation. GI was consulted for symptoms highly concerning for SBP. Plan: Cirrhosis (suspected 2/2 Hep C) with recurrent ascites, bi-weekly paracenteses chronic AFib on Eliquis DM PUD with hx bleeding ulcer CKD Breast Ca s/p partial resection and chemo Thrombocytopenia Suspected SBP, possible sepsis -Story and symptoms highly concerning for SBP, patient on Merrem as per ID -CT abd/pelvis ordered, notable for: Large volume ascites Progressive cirrhotic changes in the liver Stable splenomegaly Increase in size of the left breast which is diffusely edematous and there is likely underlying left breast mass. -Thrombocytopenia improved to 56 on diff, 75 on manual count, will recheck manual and INR tomorrow AM, and if remain at appropriate levels, can undergo therapeutic/diagnosic paracentesis; continue holding Eliquis, IR already on consult as per PMD -WBCs only 10 on admission, but as per prior charting, pt is frequently leukopenic between 2-4, so WBC count of 10 may represent an elevation 2/2 infectious process in this pt -Hep C PCR and AFP sent out, pending results -Hold further tylenol due to cirrhosis, use active cooling measures as needed -continue Pancreatitic enzyme supplementation, 5000 units with meals -Abd Duplex US ordered: patent hepatic vein -At patient's request, reached out to pt's outpt Heme-onc, Dr. Sesay ([facility]), to update on patient's condition (was scheduled for appointment today), unsuccessful in attempt, will try again tomorrow Patient seen, reviewed, and discussed with attending, Dr. Carolina <Jared Carolina V - Last Filed: 03/31/18 23:07> Objective - Vital Signs/Intake and Output Vital Signs (last 24 hours): Temp Pulse Resp BP Pulse Ox 98.5 F 68 18 123/78 100 03/31/18 17:41 03/31/18 17:41 03/31/18 17:41 03/31/18 17:41 03/31/18 05:53 Intake and Output: 03/31/18 04/01/18 18:59 06:59 Intake Total 480 Balance 480 - Medications Medications: Current Medications Acetaminophen (Tylenol 325mg Tab) 325 mg PO Q6H PRN PRN Reason: Pain, Mild (1-3) Last Admin: 03/31/18 22:44 Dose: 325 mg Amylase (Pancrease 89697 U-5000 U-30226 U) 5,000 unit PO AC [facility] Last Admin: 03/31/18 17:12 Dose: 5,000 unit Meropenem (Merrem Iv 1 Gm Premix) 50 mls @ 100 mls/hr IVPB Q8 SINAN PRN Reason: Protocol Stop: 04/08/18 14:01 Last Admin: 03/31/18 22:44 Dose: 100 mls/hr Insulin Human Lispro (Humalog High) 0 units SC ACHS SINAN PRN Reason: Protocol Last Admin: 03/31/18 22:11 Dose: Not Given Letrozole (Femara) 2.5 mg PO DAILY [facility] Last Admin: 03/31/18 10:17 Dose: 2.5 mg Nadolol (Corgard) 20 mg PO BID [facility] Last Admin: 03/31/18 17:12 Dose: 20 mg Ondansetron HCl (Zofran Inj) 4 mg IVP Q6H PRN PRN Reason: Nausea/Vomiting Oxycodone HCl (Oxycodone Immediate Release Tab) 5 mg PO Q6H PRN PRN Reason: Pain, moderate (4-7) Last Admin: 03/30/18 21:56 Dose: 5 mg Sucralfate (Carafate Oral Susp) 1 gm PO QID [facility] Last Admin: 03/31/18 22:44 Dose: 1 gm - Labs Labs: 03/31/18 09:00 03/31/18 09:00 PT 18.1 SECONDS (9.4-12.5) H 03/30/18 10:20 INR 1.56 (0.93-1.08) H 03/30/18 10:20 APTT 23.9 Seconds (25.1-36.5) L 03/30/18 10:20 Attending/Attestation - Attestation I have personally seen and examined this patient.: Yes I have fully participated in the care of the patient.: Yes I have reviewed all pertinent clinical information, including history, physical exam and plan: Yes Notes (Text): p 03/31/18 23:07
[2018-03-31] MEDS: Insulin Lispro (HUMAlog) HIGH Coverage SC SCH ×4 (08:16→22:11)
[2018-03-31] MEDS: Amylase/Lipase/Protease 5,000 Units ECC PO SCH ×3 (08:16→17:12)
--- NOTE | 2018-03-31 08:17 | CARD ---
APPROVED REPORT EKG Measurement Heart [id number] <Conclusion> Atrial fibrillation Left axis deviation RBBB PRWP Possible ALMI, old NSSTW changes No change c/w ECG 08/14/15 except the QRS is wider/RBBB.
[2018-03-31 09:16] LABS: BASO # 0.01 K/mm3 (0.0-2.0); BASO % 0.2 % (0.0-3.0); EOS # 0.2 (0.0-0.7); EOS % 4.8 % (1.5-5.0); GRAN # 3.96 (1.4-6.5); GRAN % 78.6 % (50.0-68.0); HEMOGLOBIN 9.2 g/dL (12.0-16.0); LYMPH # 0.4 (1.2-3.4); LYMPH % 8.5 % (22.0-35.0); MEAN CELL VOLUME 84.9 fl (80.0-105.0); MEAN CORPUSCULAR HGB CONC 34.2 g/dl (31.0-37.0); MEAN PLATELET VOLUME 9.5 fl (7.0-11.0); MONO # 0.4 (0.1-0.6); MONO % 7.9 % (1.0-6.0); RBC 3.17 10^6/uL (3.5-6.1); RED CELL DISTRIBUTION WIDTH 15.1 % (11.5-14.5)
--- NOTE | 2018-03-31 09:21 | US ---
PROCEDURE: Portal vein duplex ultrasound. CLINICAL HISTORY: Cirrhosis. Deteriorating liver function. Evaluate for portal vein thrombosis. PHYSICIAN(S): Kenny Munoz M.D. FINDINGS: The liver is nodular and heterogeneous in echotexture. No obvious mass is seen on these limited images. The portal vein is patent with monophasic hepatopetal flow. The hepatic artery is hypertrophied The spleen is markedly enlarged. There is a moderate amount of ascites in the upper abdomen IMPRESSION: 1. Patent portal vein with hepatopetal flow.
[2018-03-31 09:26] LABS: ALB/GLOB RATIO 0.8 (1.1-1.8); ALBUMIN 2.8 g/dL (3.0-4.8); ALT/SGPT 20 U/L (7-56); AST/SGOT 23 U/L (14-36); BLOOD UREA NITROGEN 32 mg/dL (7-21); CALCIUM 7.9 mg/dL (8.4-10.5); GFR AFRICAN-AMERICAN > 60; GFR NON-AFRICAN AMERICAN > 60
[2018-03-31] MEDS: Sucralfate 1 gm/10 ml Oral Susp UD PO SCH ×4 (10:15→22:44)
--- NOTE | 2018-03-31 12:43 | PN ---
DATE: 03/31/2018 SUBJECTIVE: The patient is seen in room 275, bed 1. No fevers and no chills. PHYSICAL EXAMINATION: VITAL SIGNS: On exam, temperature is 98, blood pressure is 120/70, respiratory rate of 20, heart rate of 60. HEENT: Examination of HEENT is unremarkable. NECK: Supple. LUNGS: Have decreased breath sounds. HEART: Normal S1, S2. ABDOMEN: Soft, nontender. LABORATORY DATA: Laboratory examination reveals a white count 5, hemoglobin of 9, platelets of 56. BUN of 32, creatinine of 0.9. Urinalysis is noted 0-2 wbc's. Microbiology reveals the blood cultures are negative, urine cultures are negative. Review of orders reveals the patient to be on meropenem. The patient had an abdominal ultrasound, which showed a patent portal vein with hepatopetal flow. The patient also had a CAT scan of the abdomen and pelvis, which is noted and increase in size of left breast, progressive cirrhotic changes, large ascites. Dr. Bravo's note is reviewed. ASSESSMENT AND PLAN: A 72-year-old female with hepatitis C, end-stage liver cirrhosis, coronary artery disease, atrial fibrillation, hypertension, diabetes, peptic ulcer disease, gastroesophageal bleed and anemia, thrombocytopenia, gastroesophageal reflux disease, history of extended-spectrum beta-lactamase Escherichia coli, pyelonephritis, Presenting on this admission with temperature of 102, tachycardia, abdominal pain with #1 is sepsis with gastrointestinal sources, spontaneous bacterial peritonitis. The patient appears to be improving and currently on an day #2 of meropenem. No ascitic fluid evaluation thus far; however, the blood and urine cultures are negative. Daily should have ascitic fluid evaluation and will need 4-7 days of antibiotics. Maybe able to switch to p.o., although limited options with nitrofurantoin and Cipro allergy. We will follow with you. Minh Tran MD
--- NOTE | 2018-03-31 16:50 | PN ---
DATE: 03/31/2018 SUBJECTIVE: The patient is 72-year-old, seen and examined, sitting by the edge of the bed, has distended abdomen and has large ascites. She states her pain is a little better, not nauseous anymore. PHYSICAL EXAMINATION VITAL SIGNS: The patient is afebrile, pulse 71, respirations 20, and blood pressure 127/66. LUNGS: Bilateral fair air flow, decreased at bases. HEART: S1 and S2 audible. ABDOMEN: Distended. No rebound. No guarding. NEUROLOGIC: She is awake, alert, oriented and communicative. LABORATORY DATA: WBC 5, hemoglobin 9.2, hematocrit 26.9, platelet of 56. PT 18.1, INR 1.56. Chemistry: Sodium 133, potassium 4.1, chloride 101, CO2 of 23, BUN 32, creatinine 0.9, blood sugar of 251. Her blood cultures and urine cultures are negative. CT of the abdomen and pelvis showed large volume ascites, but uncomplicated, substantially larger than seen previously, progressive cirrhotic changes in the liver with large splenomegaly. ASSESSMENT AND PLAN: 1. Probably spontaneous bacterial peritonitis from previous paracentesis that was done almost a week ago. 2. Coronary artery disease. 3. Atrial fibrillation. 4. History of hypertension. 5. Insulin-dependent diabetes. 6. Cirrhosis of liver. 7. Cirrhotic ascites. 8. Thrombocytopenia. The patient is thrombocytopenic, she needs therapeutic paracentesis to make her comfortable. Her Eliquis is on hold for last three days. Probably, we will request Dr. Kenny Munoz for paracentesis for tomorrow. We will monitor her blood sugar, advance her diet. We will follow up her electrolytes and CBC and CMP in a.m. Wilda Saha MD
--- NOTE | 2018-04-01 01:09 | CON ---
DATE: 03/31/2018 CONSULT REQUESTED BY: Dr. Saha. REASON FOR CONSULTATION: Thrombocytopenia, breast cancer. HISTORY OF PRESENT ILLNESS: Ms. Markham is a 72-year-old female admitted to the hospital with abdominal pain and discomfort. She had large ascites, which was drained. She has history of breast cancer diagnosed few years ago. She underwent treatment with oncologist at [place]. She received chemotherapy a few years ago. Currently on Faslodex. She was told recently there is recurrence of breast cancer in left axilla. She also has longstanding history of thrombocytopenia. She might have a diagnosis of immune thrombocytopenia as she is being treated with Nplate. The lowest platelet count during this admission was 34,000, platelet count today is 50,000. Denies bleeding from any site. She recently received Faslodex injection with her oncologist. CAT scan of the abdomen showed large ascites. PAST MEDICAL HISTORY: Coronary artery disease, atrial fibrillation, hypertension, peptic ulcer disease, thrombocytopenia, cirrhosis of liver, chronic kidney disease, history of breast cancer, diabetes mellitus. PAST SURGICAL HISTORY: Mastectomy, right side. ALLERGIES: CIPRO, NITROFURANTOIN, SULFONAMIDE. HOME MEDICATIONS: Spironolactone, ramipril, nadolol, Sonata, Xalatan, Levemir, Eliquis. SOCIAL HISTORY: . Lives with the . PERSONAL HISTORY: Ex-smoker. No history of alcohol abuse. REVIEW OF SYSTEMS: As per HPI. Positive for weakness. Poor appetite, ascites. Rest of 12-point review of systems reviewed negative. PHYSICAL EXAMINATION: GENERAL: Comfortable in bed, in no acute distress. VITAL SIGNS: Temperature 98.5, heart rate is 80 per minute, respiratory rate 16 per minute, blood pressure 150/77. HEENT: Pallor positive. NECK: No lymphadenopathy. CHEST: Air entry present and equal bilateral. No added sound. CARDIOVASCULAR: S1, S2 normal. No murmur. No gallop. ABDOMEN: Soft, nontender. Fluid present. EXTREMITY: 1+ edema. BREASTS: Left breast exam showed skin induration of the entire breast, likely has a big lump with skin induration. LABORATORY DATA: White count is 5000, hemoglobin 9.2, hematocrit 26.9, platelet count 56,000. Manual platelet count is 75,000. Sodium 133, potassium 4.1, creatinine 0.9, calcium 7.9. ASSESSMENT AND PLAN: 1. Breast cancer, on treatment with Faslodex IM. She had history of mastectomy, treated with chemotherapy a few years ago, currently likely has recurrence of breast cancer in left breast and may be malignant ascites. Ascitic fluid cytology pending. I would recommend followup with her oncologist in [place]. 2. Thrombocytopenia. 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 She is being treated with Nplate. Platelet count is 56,000. We will hold Nplate for now. To give platelet transfusion for platelet count of less than 20 ,000. No bleeding. She has anemia, hemoglobin 9.2. We will do the iron studies, B12, folate levels. She might have underlying myelodysplasia leading to anemia and thrombocytopenia. 3. Subacute bacterial peritonitis; she is on IV antibiotic. Culture on ascitic fluid pending. 4. Renal: Renal functions within normal limits. Thank you, Dr. Saha for allowing us to participate in Ms. Markham' care. Discussed with the patient. Discussed with the family at bedside. Margarita Gan MD LEN
[2018-04-01] MEDS: Meropenem IV 1 gm in NS 50 ML IVPB SCH ×3 (05:09→21:51)
[2018-04-01 06:39] LABS: BASO # 0.01 K/mm3 (0.0-2.0); BASO % 0.3 % (0.0-3.0); EOS # 0.2 (0.0-0.7); EOS % 4.7 % (1.5-5.0); GRAN # 2.83 (1.4-6.5); GRAN % 73.6 % (50.0-68.0); HEMOGLOBIN 9.7 g/dL (12.0-16.0); LYMPH # 0.4 (1.2-3.4); LYMPH % 11.2 % (22.0-35.0); MEAN CELL VOLUME 86.1 fl (80.0-105.0); MEAN CORPUSCULAR HEMOGLOBIN 28.8 pg (25.0-35.0); MEAN CORPUSCULAR HGB CONC 33.4 g/dl (31.0-37.0); MONO # 0.4 (0.1-0.6); MONO % 10.2 % (1.0-6.0); RBC 3.37 10^6/uL (3.5-6.1); RED CELL DISTRIBUTION WIDTH 15.3 % (11.5-14.5); WHITE BLOOD COUNT 3.8 10^3/ul (4.5-11.0)
[2018-04-01 06:52] LABS: INR 1.33 (0.93-1.08); PARTIAL THROMBOPLASTIN TIME 32.4 Seconds (25.1-36.5); PROTHROMBIN TIME 15.4 SECONDS (9.4-12.5)
[2018-04-01 07:08] LABS: ALB/GLOB RATIO 0.9 (1.1-1.8); ALT/SGPT 21 U/L (7-56); AST/SGOT 24 U/L (14-36); BLOOD UREA NITROGEN 34 mg/dL (7-21); GFR AFRICAN-AMERICAN > 60; GFR NON-AFRICAN AMERICAN 55
--- NOTE | 2018-04-01 08:10 | CON ---
DATE: 03/30/2018 This is an addendum to the consultation report dictated by a medical photographer. HISTORY OF PRESENT ILLNESS: The patient was seen and evaluated at bedside. I discussed with Dr. Saha earlier. This is a 72-year-old patient with a history of cirrhosis of the liver secondary to hepatitis C; history of breast cancer, on chemotherapy, has mastectomy; history of thrombocytopenia, the patient is being on end plate therapy on a p.r.n. basis; history of esophageal varices, last endoscopy close to 2-3 years ago. The patient is being closely followed by a deburrer strip in [facility]. Has been undergoing recurrent paracentesis every 2-3 weeks' time. Had recently another paracentesis, but the patient did not feel good. Normally, she feels better after the paracentesis. This time, she did not feel good and she was seen in the doctor's office and admitted for further evaluation. The patient also reported having a low-grade fever. On examination, the patient had a large ascites present. Had mild edema present. The patient was on Liquid diet. Tolerating presently on antibiotics. Review of the labs showed hemoglobin was 8.8 with platelet count 34. WBC 5. Chemistry showed total bilirubin of 2.1. The patient had a CT scan, abdomen and pelvis, which was reviewed. IMPRESSION: 1. Decompensated cirrhosis of the liver. 2. History of esophageal varices. 3. Thrombocytopenia, the patient is followed by tree cutter, on end plate therapy as needed depending on the blood count. 4. The patient has a history of chronic diarrhea, on Imodium p.r.n. basis. 5. Low-grade fever. Rule out spontaneous bacterial peritonitis sepsis. 6. History of colonic polyp. Last colonoscopy about 2-3 years ago, being followed by the deburrer strip in [facility]. 7. Other comorbidities include coronary artery disease; atrial fibrillation, on Eliquis; diabetes mellitus. RECOMMENDATIONS: 1. We will discontinue the PPI. 2. We will start the patient on Carafate. 3. The patient has a history of diarrhea, mainly postprandial. Rule out exocrine pancreatic insufficiency. We will start the patient empirically on pancreatic enzyme, supplement initially with 5000 units three times a day. The patient may need repeat paracentesis, but the platelet count is low. We may have to get tree cutter involved. The patient was on Eliquis, which normally she holds Eliquis about 2-3 days before the procedure. The reasonable thing is to hold off paracentesis at the present time in view of the above complexities. Continue the antibiotics and treat empirically. This patient is being followed by deburrer strip and also tree cutter in [facility]. She is also being followed by the oncologist for the breast cancer. She describes us she is getting some chemo. Details are not clear. I have had a lengthy discussion with the patient, who fully understood the management plan and her clinical condition. We will continue to closely follow up her care and suggest further recommendation based on the clinical course. Thank you very much for allowing us to participate in the care of the patient. Jared Carolina MD
[2018-04-01] MEDS: Amylase/Lipase/Protease 5,000 Units ECC PO SCH ×3 (08:19→17:43)
[2018-04-01] MEDS: Insulin Lispro (HUMAlog) HIGH Coverage SC SCH ×3 (08:19→17:43)
--- NOTE | 2018-04-01 08:57 | CP.PCM.PN ---
<Deuce Valladares - Last Filed: 04/01/18 13:35> Subjective - Date & Time of Evaluation Date of Evaluation: 04/01/18 Time of Evaluation: 09:30 - Subjective Subjective: GI Progress Note for Dr. Ge Valladares, PGY-3 IM Patient seen and examined at bedside. No acute events reported overnight, remained afebrile overnight again. No new complaints today; still has abdominal pain from swelling and some nausea, but both are improved as compared to severity on presentation. Denies chest pain, shortness of breath, emesis, PO intolerance, or dysuria/hematuria. Repeat Manual platelets were 71 this AM, and INR improved to 1.33, so pending paracentesis with IR. Objective - Vital Signs/Intake and Output Vital Signs (last 24 hours): Temp Pulse Resp BP Pulse Ox 99.0 F 72 19 130/68 98 04/01/18 00:01 04/01/18 00:01 04/01/18 00:01 04/01/18 00:01 04/01/18 00:01 Intake and Output: 04/01/18 04/01/18 06:59 18:59 Intake Total 580 Output Total 100 Balance 480 - Medications Medications: Current Medications Acetaminophen (Tylenol 325mg Tab) 325 mg PO Q6H PRN PRN Reason: Pain, Mild (1-3) Last Admin: 03/31/18 22:44 Dose: 325 mg Amylase (Pancrease 33699 [id number] [id number] U) 5,000 unit PO AC [facility] Last Admin: 04/01/18 08:19 Dose: 5,000 unit Meropenem (Merrem Iv 1 Gm Premix) 50 mls @ 100 mls/hr IVPB Q8 [facility] PRN Reason: Protocol Stop: 04/08/18 14:01 Last Admin: 04/01/18 05:09 Dose: 100 mls/hr Insulin Human Lispro (Humalog High) 0 units SC ACHS [facility] PRN Reason: Protocol Last Admin: 04/01/18 08:19 Dose: 7 units Letrozole (Femara) 2.5 mg PO DAILY [facility] Last Admin: 03/31/18 10:17 Dose: 2.5 mg Nadolol (Corgard) 20 mg PO BID [facility] Last Admin: 03/31/18 17:12 Dose: 20 mg Ondansetron HCl (Zofran Inj) 4 mg IVP Q6H PRN PRN Reason: Nausea/Vomiting Oxycodone HCl (Oxycodone Immediate Release Tab) 5 mg PO Q6H PRN PRN Reason: Pain, moderate (4-7) Last Admin: 03/30/18 21:56 Dose: 5 mg Sucralfate (Carafate Oral Susp) 1 gm PO QID [facility] Last Admin: 03/31/18 22:44 Dose: 1 gm - Labs Labs: 04/01/18 06:00 04/01/18 06:00 PT 15.4 SECONDS (9.4-12.5) H 04/01/18 06:00 INR 1.33 (0.93-1.08) H 04/01/18 06:00 APTT 32.4 Seconds (25.1-36.5) 04/01/18 06:00 - Additional Findings Additional findings: - Constitutional Appears: Non-toxic, No Acute Distress - Head Exam Head Exam: ATRAUMATIC, NORMAL INSPECTION, NORMOCEPHALIC - Eye Exam Eye Exam: EOMI, Normal appearance. absent: Conjunctival injection, Scleral icterus Pupil Exam: absent: Fixed, Irregular - ENT Exam ENT Exam: Mucous Membranes Moist - Neck Exam Neck exam: Positive for: Normal Inspection - Respiratory Exam Respiratory Exam: Clear to Auscultation Bilateral, NORMAL BREATHING PATTERN. absent: Accessory Muscle Use, Chest Wall Tenderness, Decreased Breath Sounds, Rales, Rhonchi, Wheezes, Respiratory Distress, Stridor - Cardiovascular Exam Cardiovascular Exam: RRR, +S1, +S2. absent: Bradycardia, Tachycardia, Irregular Rhythm, JVD, +S4 - GI/Abdominal Exam distant-sounding but definitely present bowel sounds distended abdomen with appreciable fluid wave, firm but not rigid mild tenderness diffusely worsened with palpation, most predominantly right upper and lower quadrants, not guarding unable to palpate liver or spleen due to abdominal distension - Extremities Exam Extremities exam: Positive for: pedal edema (+1 pitting edema in bilateral LE from ankles to bottom 2/3rd of shins). Negative for: calf tenderness, joint swelling, tenderness - Neurological Exam awake and alert, following all commands appropriately, moving all extremities spontaneously - Psychiatric Exam Psychiatric exam: Normal Affect, Normal Mood - Skin Skin Exam: Dry, Intact, Normal Color, Warm Assessment and Plan - Assessment and Plan (Free Text) Assessment: This is a 72 yo F with extensive PMH, including Cirrhosis (suspected 2/2 Hep C) with recurrent ascites, chronic AFib on Eliquis, CAD s/p stent, HTN, DM, PUD with hx bleeding ulcer, CKD, and Breast Ca s/p partial resection and chemo, and anemia who presents with complaint of worsening abdominal pain, febrile sensation. GI was consulted for symptoms highly concerning for SBP. Plan: Cirrhosis (suspected 2/2 Hep C) with recurrent ascites, bi-weekly paracenteses chronic AFib on Eliquis DM PUD with hx bleeding ulcer CKD Breast Ca s/p partial resection and chemo Thrombocytopenia Suspected SBP, possible sepsis -Story and symptoms highly concerning for SBP, patient on Merrem as per ID -CT abd/pelvis ordered, notable for: Large volume ascites Progressive cirrhotic changes in the liver Stable splenomegaly Increase in size of the left breast which is diffusely edematous and there is likely underlying left breast mass. -WBCs only 10 on admission, but as per prior charting, pt is frequently leukopenic between 2-4, so WBC count of 10 may represent an elevation 2/2 infectious process in this pt; back to baseline today at 3.8 -Thrombocytopenia stable; remains 56 on diff, 71 on manual count today (was 75 yesterday), IR improved to 1.33 (last was 1.56), day 3 off of eliquis, safe for paracentesis -On schedule for paracentesis with IR today, informed IR school attendance secretary that this isn 't just routine paracentesis, concern for SBP, so need cytology sent, she made note and confirmed cytology will be sent -Hep C PCR still pending, AFP wnl -Hold further tylenol due to cirrhosis, use active cooling measures as needed -continue Pancreatitic enzyme supplementation, 5000 units with meals -Abd Duplex US ordered: patent hepatic vein -Strongly encouraged patient to follow up with her outpatient Heme-onc and outpatient GI after discharge to review all records, and for improved continuity of care Patient seen, reviewed, and discussed with attending, Dr. Carolina <Jared Carolina V - Last Filed: 04/02/18 00:12> Objective - Vital Signs/Intake and Output Vital Signs (last 24 hours): Temp Pulse Resp BP Pulse Ox 98.2 F 67 18 97/60 L 100 04/01/18 22:41 04/01/18 22:41 04/01/18 22:41 04/01/18 22:41 04/01/18 22:41 Intake and Output: 04/01/18 04/02/18 18:59 06:59 Intake Total 620 Balance 620 - Medications Medications: Current Medications Acetaminophen (Tylenol 325mg Tab) 325 mg PO Q6H PRN PRN Reason: Pain, Mild (1-3) Last Admin: 04/01/18 20:45 Dose: 325 mg Albumin Human (Albumin Human 25% (12.5 Gm/50 Ml)) 12.5 gm IV BID [facility] Last Admin: 04/01/18 21:50 Dose: 12.5 gm Amylase (Pancrease 53084 U-5000 [id number] U) 5,000 unit PO AC [facility] Last Admin: 04/01/18 17:43 Dose: 5,000 unit Meropenem (Merrem Iv 1 Gm Premix) 50 mls @ 100 mls/hr IVPB Q8 [facility] PRN Reason: Protocol Stop: 04/08/18 14:01 Last Admin: 04/01/18 21:51 Dose: 100 mls/hr Insulin Human Lispro (Humalog High) 0 units SC ACHS [facility] PRN Reason: Protocol Last Admin: 04/01/18 17:43 Dose: 7 units Latanoprost (Xalatan Opht) 0 ml OU HS [facility] Letrozole (Femara) 2.5 mg PO DAILY [facility] Last Admin: 04/01/18 14:47 Dose: 2.5 mg Nadolol (Corgard) 20 mg PO BID [facility] Last Admin: 04/01/18 17:43 Dose: 20 mg Ondansetron HCl (Zofran Inj) 4 mg IVP Q6H PRN PRN Reason: Nausea/Vomiting Oxycodone HCl (Oxycodone Immediate Release Tab) 5 mg PO Q6H PRN PRN Reason: Pain, moderate (4-7) Last Admin: 03/30/18 21:56 Dose: 5 mg Spironolactone (Aldactone) 50 mg PO BID [facility] Last Admin: 04/01/18 17:44 Dose: 50 mg Sucralfate (Carafate Oral Susp) 1 gm PO QID [facility] Last Admin: 04/01/18 21:51 Dose: 1 gm - Labs Labs: 04/01/18 06:00 04/01/18 06:00 PT 15.4 SECONDS (9.4-12.5) H 04/01/18 06:00 INR 1.33 (0.93-1.08) H 04/01/18 06:00 APTT 32.4 Seconds (25.1-36.5) 04/01/18 06:00 Attending/Attestation - Attestation I have personally seen and examined this patient.: Yes I have fully participated in the care of the patient.: Yes I have reviewed all pertinent clinical information, including history, physical exam and plan: Yes Notes (Text): This is an addendum to GI progress report dictated by the GI Fellow.The patient was seen and examined earlier. Medical records, lab studies, imagings were reviewed. Last 24 hours events reviewed. Agreed with the above treatment plan as outlined in GI Fellow 's notes the with the addition of the following 04/02/18 00:11
[2018-04-01] MEDS: Sucralfate 1 gm/10 ml Oral Susp UD PO SCH ×4 (10:29→21:51)
--- NOTE | 2018-04-01 16:43 | PN ---
DATE: 04/01/2018 SUBJECTIVE: Patient is 72 years old, seen and examined, complained of abdominal distention last night. No nausea or vomiting. OBJECTIVE: VITAL SIGNS: She is afebrile, pulse 69, respirations 19, blood pressure 122/76. LUNGS: Bilateral decreased breath sounds at bases. HEART: S1, S2 audible. ABDOMEN: Distended with fluid thrill, some diffuse dull discomfort. NEUROLOGIC: She is awake, alert, oriented, and communicative. EXTREMITIES: Bilateral leg, no edema. LABORATORY DATA: WBC 3.8, hemoglobin 9.7, hematocrit 29, and platelets 56. PT is 15.4, INR 1.33. Chemistry: Sodium 133, potassium 4.8, chloride 101, CO2 of 23. BUN 34, creatinine 1. Blood sugar 324. Blood cultures and urine cultures are negative. Abdominal sonogram shows patent portal vein with hepatopetal flow. ASSESSMENT: 1. Abdominal pain, rule out spontaneous bacterial peritonitis. Patient is going for diagnostic and therapeutic paracentesis today. Her platelet number is satisfactory. She is off of Eliquis that will be restarted tomorrow morning. 2. Coronary artery disease, status post angioplasty. 3. Cirrhosis of liver. 4. Coagulopathy secondary to cirrhosis of the liver. 5. Insulin-dependent diabetes. 6. Hyperlipidemia. 7. History of hepatitis C, status post treatment. 8. Chronic anemia. PLAN: Currently, patient is on nadolol. She also has history of right mastectomy. The CAT scan done on 03/30, shows large volume ascites, cirrhotic changes in the liver, and there is a questionable left breast mass. Patient is going for paracentesis. We will restart Eliquis tomorrow and If patient remains stable, her hemoglobin is stable, possible discharge in a.m. on p.o. antibiotics. Wilda Saha MD
[2018-04-01 17:17] LABS: BODY FLUID TYPE PERITONEAL/ASCITES
[2018-04-01 17:36] LABS: BF GROSS APPEARANCE CLEAR (CLEAR); BODY FLUID RBC 929.5 /uL (0.0-0.0)
[2018-04-01 17:37] LABS: BODY FLUID TOTAL COUNT 100 (0-0)
--- NOTE | 2018-04-01 18:33 | US ---
PROCEDURE: Ultrasound guided paracentesis. HISTORY: Hepatitis-C cirrhosis. Recurrent ascites with abdominal pain and distention. Evaluate for SBP. PHYSICIAN(S): Kenny Munoz MD. TECHNIQUE: The relative risks and indications for the procedure were explained to the patient and informed written consent obtained. Sonography of the abdomen was performed in a supine position. This revealed a moderate to large amount of non-loculated ascites, greatest in the right lower quadrant. A puncture site was selected and the area was prepped and draped in the usual sterile fashion. 1% Xylocaine was used to anesthetize the skin and soft tissues. A 7 Tamazight paracentesis catheter was trocared into the right lower quadrantand 8300 cc of clear, straw-colored fluid aspirated. The appropriate labs were sent. IMPRESSION: Ultrasound-guided paracentesis in the right lower quadrant. 8300 cc of fluid were aspirated. Labs were sent
[2018-04-01] MEDS: Albumin Human 25% (12.5 gm/50 ml) IV SCH (21:50)
--- NOTE | 2018-04-02 01:21 | PN ---
DATE: 04/01/2018 SUBJECTIVE: The patient is in bed, in no acute distress, was seen early; however, in room 275, bed 1 this morning. The patient is chronically ill and weak. PHYSICAL EXAMINATION: VITAL SIGNS: Temperature of 99, blood pressure is 130/60, respiratory rate of 19, heart rate of 72. HEENT: Unremarkable. NECK: Supple. LUNGS: Have decreased breath sounds. HEART: Normal S1, S2. ABDOMEN: Soft. LABORATORY DATA: Reveals a white count of 3.8, hemoglobin of 9, platelets of 56. BUN of 34, creatinine of 1. Urinalysis is noted. Hepatitis C is reactive. Urine for Legionella antigen is negative. Microbiology reveals the blood cultures and urine cultures are negative. The patient's wbc's are 130 wbc's in the peritoneal and ascitic fluid. ASSESSMENT AND PLAN: This is a 72-year-old female with hepatitis C, end-stage liver cirrhosis, coronary artery disease, atrial fibrillation, hypertension, diabetes, peptic ulcer disease, gastroesophageal bleed, anemia, thrombocytopenia, gastroesophageal reflux disease, history of extended-spectrum beta-lactamase Escherichia coli, pyelonephritis, presenting with fever, tachycardia, and abdominal pain. #1 Sepsis with gastrointestinal source, spontaneous bacterial, less likely with a WBC count that is noted and currently on day #3 of meropenem. We will check on the Gram stain of the peritoneal fluid and ascitic fluid and the culture results. Overall, prognosis is quite poor for this end-stage female. Minh Tran MD
[2018-04-02] MEDS: Meropenem IV 1 gm in NS 50 ML IVPB SCH (05:35)
[2018-04-02 08:02] LABS: BASO # 0.02 K/mm3 (0.0-2.0); BASO % 0.6 % (0.0-3.0); EOS # 0.1 (0.0-0.7); EOS % 4.2 % (1.5-5.0); GRAN # 2.26 (1.4-6.5); GRAN % 72.5 % (50.0-68.0); HEMOGLOBIN 9.4 g/dL (12.0-16.0); LYMPH # 0.5 (1.2-3.4); LYMPH % 14.7 % (22.0-35.0); MEAN CELL VOLUME 85.1 fl (80.0-105.0); MEAN CORPUSCULAR HEMOGLOBIN 28.6 pg (25.0-35.0); MEAN CORPUSCULAR HGB CONC 33.6 g/dl (31.0-37.0); MEAN PLATELET VOLUME 10.3 fl (7.0-11.0); MONO # 0.3 (0.1-0.6); RBC 3.29 10^6/uL (3.5-6.1); RED CELL DISTRIBUTION WIDTH 15.1 % (11.5-14.5); WHITE BLOOD COUNT 3.1 10^3/ul (4.5-11.0)
[2018-04-02 08:20] LABS: ALB/GLOB RATIO 0.8 (1.1-1.8); ALBUMIN 2.5 g/dL (3.0-4.8); ALT/SGPT 20 U/L (7-56); AST/SGOT 23 U/L (14-36); BLOOD UREA NITROGEN 30 mg/dL (7-21); CALCIUM 7.9 mg/dL (8.4-10.5); GFR AFRICAN-AMERICAN > 60; GFR NON-AFRICAN AMERICAN > 60
[2018-04-02] MEDS: Insulin Lispro (HUMAlog) HIGH Coverage SC SCH ×5 (08:27→22:41)
[2018-04-02] MEDS: Latanoprost 2.5 ml Opht Soln OU SCH ×2 (08:27→21:12)
[2018-04-02] MEDS: Amylase/Lipase/Protease 5,000 Units ECC PO SCH ×2 (08:42→12:08)
[2018-04-02] MEDS: Albumin Human 25% (12.5 gm/50 ml) IV SCH ×2 (09:39→18:05)
[2018-04-02] MEDS: Amoxicillin-Clav 875-125 mg Tab PO SCH ×2 (09:39→21:12)
[2018-04-02] MEDS: Sucralfate 1 gm/10 ml Oral Susp UD PO SCH ×4 (09:40→22:12)
--- NOTE | 2018-04-02 12:15 | PN ---
DATE: 04/02/2018 SUBJECTIVE: Patient is in bed, in no acute distress, nontoxic. OBJECTIVE: VITAL SIGNS: On exam, temperature is 98, blood pressure is 97/60, respiratory rate 18. HEENT: Examination is unremarkable. NECK: Supple. LUNGS: Have decreased breath sounds. HEART: Normal S1, S2. ABDOMEN: Soft. DATA: Laboratory examination reveals a white count of 3.1, hemoglobin of 9, platelets of 57. BUN of 30, creatinine of 0.8. Urinalysis is noted and ascitic fluid is noted to have 130 wbc's. Serology is reactive positive for hepatitis C. Microbiology, the cultures are negative. ASSESSMENT AND PLAN: This is a 72-year-old female with hepatitis C, end-stage liver cirrhosis, coronary artery disease, atrial fibrillation, hypertension, diabetes, peptic ulcer disease, gastroesophageal bleed, anemia, thrombocytopenia, gastroesophageal reflux disease, history of extended spectrum beta-lactamases Escherichia coli, pyelonephritis, presenting with a fever, tachycardia, abdominal pain with sepsis with possible spontaneous bacterial peritonitis, although the WBC count is is low. The paracentesis was done yesterday after the patient has received almost four days of antibiotics and with WBCs of 130, 90% lymphocytosis. We will discontinue the meropenem at this point. Cultures negative. The patient is doing well and complete with p.o. Augmentin x5 days. After her treatment is done, the patient should be on antibiotic prophylaxis. Although SHE IS ALLERGIC TO CIPRO AND SULFA, may use Augmentin 875 p.o. once weekly after initial treatment of Augmentin 875 p.o. twice daily x5 days is completed. Minh Tran MD
--- NOTE | 2018-04-02 12:24 | PN ---
DATE: 04/02/2018 SUBJECTIVE: The patient is 72 years old, seen and examined, had paracentesis done yesterday and almost L of fluid was removed. She states she feels a lot better. Her breathing is better, but still has abdominal soreness. No fever or chills. No nausea or vomiting. Eating and tolerating. PHYSICAL EXAMINATION: VITAL SIGNS: She is afebrile, pulse 66, respirations 20, blood pressure 109/58. LUNGS: Bilateral diffusely decreased breath sounds, especially at bases. HEART: S1 and S2 audible. ABDOMEN: Soft. Nontender. No rebound. No guarding. NEUROLOGICAL: The patient is awake, alert, oriented, communicative. EXTREMITIES: Bilateral leg, no edema. LABORATORY EXAM: WBC 3.1, hemoglobin 9.4, hematocrit 28, platelet 57. Chemistry: Sodium 134, potassium 4.6, chloride 103, CO2 of 25, BUN 30, creatinine 0.8, blood sugar of 308. Blood culture, urine cultures are negative. ASSESSMENT: 1. Large cirrhotic ascites, status post paracentesis. 2. Chronic atrial fibrillation. 3. Coronary artery disease. 4. Thrombocytopenia. 5. Pancytopenia. 6. Hepatitis C. 7. History of hypertension. 8. Insulin-dependent diabetes. 9. Peptic ulcer disease. 10. Questionable spontaneous bacterial peritonitis. The patient is pancytopenic. It is hard to diagnose; however, she complained of generalized soreness. PLAN: Currently, she is on antibiotic. We will restart her on Eliquis. Follow up her CBC. If her count remains stable, she will be discharged either tomorrow and encourage physical therapy. If the patient remains stable, she will be discharged either tomorrow or Wednesday. I will also order for physical therapy. Wilda Saha MD
--- NOTE | 2018-04-03 00:11 | PN ---
DATE: 04/02/2018 FOLLOWUP NOTE SUBJECTIVE: She is comfortable in bed, in no acute distress. She underwent large volume paracentesis yesterday. Eliquis was on hold. Platelet count was 75,000. No bleeding with the procedure. 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 Platelet count is 57 today. She has recurrence of breast cancer. She was unaware of the big lump in the left breast, currently on Faslodex with her primary oncologist. Appetite is good. Sitting comfortably in chair. Eating her lunch. REVIEW OF SYSTEMS: As per HPI. Rest of 12-point review of systems reviewed negative. PHYSICAL EXAMINATION: GENERAL: Comfortable in bed, in no acute distress. VITAL SIGNS: Temperature 97.5, heart rate 67 per minute, respiratory rate 18 per minute, blood pressure 110/60. HEENT: Pallor positive. NECK: No lymphadenopathy. CHEST: Air entry present and equal bilateral. No added sounds. CARDIOVASCULAR: S1, S2 normal. No murmur. No gallop. ABDOMEN: Soft, nontender. Distention present. Ascites present. NEUROLOGIC: Awake, alert, oriented. EXTREMITIES: Legs, bilateral no edema. 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 No focal sensorimotor deficits. LABORATORY DATA: White count 3.1, hemoglobin 9.4, platelet 57. Sodium 137, potassium 4.6, BUN 30, creatinine 0.8. MEDICATIONS: Reviewed. ASSESSMENT: 1. Recurrent breast cancer. 2. Cirrhotic ascites. 3. Hepatitis C. 4. Pancytopenia. 5. Peptic ulcer disease. PLAN: Eliquis was restarted because of atrial fibrillation. No bleeding. She has end-stage cirrhosis of liver related to hepatitis C. A large volume paracentesis done yesterday. Currently, stable. We will continue to monitor blood count. Upon discharge from the hospital, she will follow up with the emergency preparedness coordinator. If platelet count is less than 50, she will need the dose of Nplate. Thank you, Dr. Saha for allowing us to participate in Ms. Markham' care. Margarita Gan MD
[2018-04-03 07:57] LABS: BASO # 0.01 K/mm3 (0.0-2.0); BASO % 0.3 % (0.0-3.0); EOS # 0.1 (0.0-0.7); EOS % 2.8 % (1.5-5.0); GRAN # 2.77 (1.4-6.5); GRAN % 78.3 % (50.0-68.0); HEMOGLOBIN 9.1 g/dL (12.0-16.0); LYMPH # 0.4 (1.2-3.4); LYMPH % 10.7 % (22.0-35.0); MEAN CELL VOLUME 84.5 fl (80.0-105.0); MEAN CORPUSCULAR HEMOGLOBIN 28.8 pg (25.0-35.0); MEAN CORPUSCULAR HGB CONC 34.1 g/dl (31.0-37.0); MEAN PLATELET VOLUME 10.1 fl (7.0-11.0); MONO # 0.3 (0.1-0.6); MONO % 7.9 % (1.0-6.0); RBC 3.16 10^6/uL (3.5-6.1); WHITE BLOOD COUNT 3.5 10^3/ul (4.5-11.0)
[2018-04-03 08:18] LABS: PLATELET COUNT 43 10^3/uL (120.0-450.0)
[2018-04-03] MEDS: Sucralfate 1 gm/10 ml Oral Susp UD PO SCH ×4 (09:44→21:25)
[2018-04-03] MEDS: Insulin Lispro (HUMAlog) HIGH Coverage SC SCH ×4 (09:45→22:59)
[2018-04-03] MEDS: Amylase/Lipase/Protease 5,000 Units ECC PO SCH ×3 (09:45→17:11)
[2018-04-03] MEDS: Amoxicillin-Clav 875-125 mg Tab PO SCH ×2 (09:45→21:24)
[2018-04-03] MEDS: Albumin Human 25% (12.5 gm/50 ml) IV SCH ×2 (13:34→19:41)
--- NOTE | 2018-04-03 13:59 | PN ---
DATE: 04/03/2018 SUBJECTIVE: The patient is in bed, in no acute distress, nontoxic. The patient was seen earlier. PHYSICAL EXAMINATION: VITAL SIGNS: On exam, temperature is 98, blood pressure is 101/50, respiratory rate of 18. HEENT: Examination of HEENT is unremarkable. NECK: Supple. LUNGS: Have decreased breath sounds. HEART: Normal S1, S2. ABDOMEN: Soft, nontender. LABORATORY DATA: Laboratory examination reveals a white count of 3.5, hemoglobin of 9, platelets of 43. Chemistries reveals a BUN of 30, creatinine of 0.8. Urinalysis is noted. Peritoneal fluid findings of wbc's are 130. Microbiology reveals no growth at 24 hours. Review of orders reveals the patient to be on p.o. Augmentin. ASSESSMENT AND PLAN: A 72-year-old female with hepatitis C, end-stage liver cirrhosis, coronary artery disease, atrial fibrillation, hypertension, diabetes mellitus, peptic ulcer disease, gastroesophageal bleeding, anemia, thrombocytopenia, gastroesophageal reflux disease, history of extended-spectrum beta-lactamase Escherichia coli, pyelonephritis, presenting with fever, tachycardia, abdominal pain with sepsis with possible spontaneous bacterial peritonitis, now that we have normal WBC count and cultures are negative. WBC count in the ascitic fluid is only 130 and cultures and Gram stain are negative; however, the paracentesis was done after the patient had been on antibiotics. Currently, on p.o. Augmentin. We will treat with 4 more days of p.o. Augmentin at 875 p.o. b.i.d. Once the treatment is over, you may use Augmentin 875 mg p.o. once weekly for spontaneous bacterial peritonitis prophylaxis since the patient is allergic to Cipro and sulfa. Minh Tran MD
--- NOTE | 2018-04-03 16:09 | PN ---
DATE: 04/03/2018 FOLLOWUP NOTE SUBJECTIVE: She is comfortable in chair. Mild distress due to abdominal distention. She underwent ascitic tap on Wednesday. There is again fluid accumulation in the abdomen, which is markedly increased since yesterday. Platelet count declined to 43,000. She has been on Nplate for thrombocytopenia. No nausea. No vomiting. Appetite is fair. No bleeding from any site. REVIEW OF SYSTEMS: As per HPI. Rest of 12-point review of systems reviewed negative. PHYSICAL EXAMINATION: GENERAL: Sitting in chair, no acute distress. VITAL SIGNS: Temperature 98.5, heart rate 67 per minute, respiratory rate 15 per minute, blood pressure 110/70. HEENT: Pallor positive. NECK: No lymphadenopathy. CHEST: Air entry present and equal bilateral. No added sound. CARDIOVASCULAR: S1, S2 normal. No murmur. No gallop. ABDOMEN: Soft, nontender. No hepatosplenomegaly. Ascites present. Nontender. NEUROLOGIC: Awake, alert, oriented x3. No focal sensorimotor deficits. EXTREMITY: Bilateral leg edema. HOLLOW HANDLE BENCH WORKER: Alert and oriented x3. No focal sensorimotor deficit. LABORATORY DATA: Labs reviewed. MEDICATIONS: Reviewed. ASSESSMENT: 1. Recurrent breast cancer. 2. Cirrhosis of liver. 3. Hepatitis. 4. Large volume ascites. 5. Pancytopenia. 6. Peptic ulcer disease. PLAN: She is currently on Eliquis for atrial fibrillation. There is reaccumulation of ascitic fluid in the abdomen. Currently on Augmentin every 12 hours. She is also on Femara. Gets Faslodex with oncologist for recurrent breast cancer. On diuretics, Aldactone 50 mg p.o. b.i.d. She might need tunnel catheter for continuous ascitic drainage. There is rapid filling of ascites fluid compromising quality of life. I will leave the decision to Dr. Saha. She follows with the oncologist at [facility]. Discussed with the patient's at bedside. Margarita Gan MD
[2018-04-03] MEDS: Latanoprost 2.5 ml Opht Soln OU SCH (22:59)
[2018-04-04] MEDS: Amylase/Lipase/Protease 5,000 Units ECC PO SCH ×3 (08:17→17:00)
[2018-04-04] MEDS: Insulin Lispro (HUMAlog) HIGH Coverage SC SCH ×4 (08:17→23:45)
[2018-04-04] MEDS: Albumin Human 25% (12.5 gm/50 ml) IV SCH ×2 (10:00→17:40)
[2018-04-04 10:27] LABS: BASO # 0.01 K/mm3 (0.0-2.0); BASO % 0.2 % (0.0-3.0); EOS # 0.2 (0.0-0.7); EOS % 4.1 % (1.5-5.0); GRAN # 3.75 (1.4-6.5); GRAN % 73.5 % (50.0-68.0); HEMOGLOBIN 9.9 g/dL (12.0-16.0); LYMPH # 0.4 (1.2-3.4); LYMPH % 6.9 % (22.0-35.0); MEAN CORPUSCULAR HEMOGLOBIN 28.5 pg (25.0-35.0); MEAN CORPUSCULAR HGB CONC 33.6 g/dl (31.0-37.0); MEAN PLATELET VOLUME 10.2 fl (7.0-11.0); MONO # 0.8 (0.1-0.6); MONO % 15.3 % (1.0-6.0); RBC 3.47 10^6/uL (3.5-6.1); RED CELL DISTRIBUTION WIDTH 15.3 % (11.5-14.5); WHITE BLOOD COUNT 5.1 10^3/ul (4.5-11.0)
[2018-04-04 10:29] LABS: ALT/SGPT 28 U/L (7-56); AST/SGOT 29 U/L (14-36); BLOOD UREA NITROGEN 28 mg/dL (7-21); CALCIUM 8.4 mg/dL (8.4-10.5); GFR AFRICAN-AMERICAN > 60; GFR NON-AFRICAN AMERICAN > 60
[2018-04-04] MEDS: Amoxicillin-Clav 875-125 mg Tab PO SCH ×2 (10:58→21:19)
[2018-04-04] MEDS: Sucralfate 1 gm/10 ml Oral Susp UD PO SCH ×4 (10:58→21:19)
--- NOTE | 2018-04-04 13:19 | CP.PCM.PN ---
Subjective - Date & Time of Evaluation Date of Evaluation: 04/04/18 Time of Evaluation: 09:00 - Subjective Subjective: GI Progress Note for Dr. Ge Valladares, PGY-3 IM Patient seen and examined at bedside. Patient reports BRBPR with bowel movements and with wiping since last night, persisting into this AM. Denies passing clots, no kemal hemorrhage reported, no active bleeding without BMs. Blood not witnessed by nursing. Pt denies any palpitations, lightheadedness, room-spinning, general weakness, syncope/near-syncope, or changes in vision. Did receive 2x doses of 2.5mg Eliquis yesterday, will hold today's dosing pending return of lab work. Objective - Vital Signs/Intake and Output Vital Signs (last 24 hours): Temp Pulse Resp BP Pulse Ox 98.4 F 65 20 129/66 100 04/04/18 06:00 04/04/18 10:58 04/04/18 06:00 04/04/18 10:58 04/04/18 06:00 Intake and Output: 04/04/18 04/04/18 06:59 18:59 Intake Total 1180 Balance 1180 - Medications Medications: Current Medications Acetaminophen (Tylenol 325mg Tab) 325 mg PO Q6H PRN PRN Reason: Pain, Mild (1-3) Last Admin: 04/03/18 01:32 Dose: 325 mg Albumin Human (Albumin Human 25% (12.5 Gm/50 Ml)) 12.5 gm IV BID [facility] Last Admin: 04/04/18 10:00 Dose: 12.5 gm Amoxicillin/Clavulanate Potassium (Augmentin 875 Mg-125 Mg Tab) 1 tab PO Q12 [facility] PRN Reason: Protocol Stop: 04/07/18 10:01 Last Admin: 04/04/18 10:58 Dose: 1 tab Amylase (Pancrease 24859 U-5000 U-[id number] U) 5,000 unit PO AC [facility] Last Admin: 04/04/18 11:59 Dose: 5,000 unit Hydrocortisone (Anusol-Hc) 25 mg RC BID [facility] Last Admin: 04/04/18 11:04 Dose: Not Given Insulin Human Lispro (Humalog High) 0 units SC ACHS [facility] PRN Reason: Protocol Last Admin: 04/04/18 11:57 Dose: 4 units Latanoprost (Xalatan Opht) 0 ml OU HS [facility] Last Admin: 04/03/18 22:59 Dose: Not Given Letrozole (Femara) 2.5 mg PO DAILY [facility] Last Admin: 04/04/18 11:00 Dose: 2.5 mg Nadolol (Corgard) 20 mg PO BID [facility] Last Admin: 04/04/18 10:58 Dose: 20 mg Ondansetron HCl (Zofran Inj) 4 mg IVP Q6H PRN PRN Reason: Nausea/Vomiting Spironolactone (Aldactone) 50 mg PO BID [facility] Last Admin: 04/04/18 10:58 Dose: 50 mg Sucralfate (Carafate Oral Susp) 1 gm PO QID [facility] Last Admin: 04/04/18 10:58 Dose: 1 gm - Labs Labs: 04/04/18 08:00 04/04/18 08:00 PT 15.4 SECONDS (9.4-12.5) H 04/01/18 06:00 INR 1.33 (0.93-1.08) H 04/01/18 06:00 APTT 32.4 Seconds (25.1-36.5) 04/01/18 06:00 - Additional Findings Additional findings: - Constitutional Appears: Non-toxic, No Acute Distress - Head Exam Head Exam: ATRAUMATIC, NORMAL INSPECTION, NORMOCEPHALIC - Eye Exam Eye Exam: EOMI, Normal appearance. absent: Conjunctival injection, Scleral icterus Pupil Exam: absent: Fixed, Irregular - ENT Exam ENT Exam: Mucous Membranes Moist - Neck Exam Neck exam: Positive for: Normal Inspection - Respiratory Exam Respiratory Exam: Clear to Auscultation Bilateral, NORMAL BREATHING PATTERN. absent: Accessory Muscle Use, Chest Wall Tenderness, Decreased Breath Sounds, Rales, Rhonchi, Wheezes, Respiratory Distress, Stridor - Cardiovascular Exam Cardiovascular Exam: RRR, +S1, +S2. absent: Bradycardia, Tachycardia, Irregular Rhythm, JVD, +S4 - GI/Abdominal Exam less distant-sounding bowel sounds less distended abdomen, soft on palpation mild tenderness diffusely, improved compared to prior exams - Rectal Exam Rectal Exam: absent: Black Stool, Bloody Stool, Hemorrhoids, Fecal Impaction Additional comments: no appreciable rectal mass, no external/internal hemorrhoids visualized or palpated, no active bleeding or oozing observed externally, no blood staining undergarments - Extremities Exam Extremities exam: Positive for: pedal edema (+1 pitting edema in bilateral LE from ankles to bottom 2/3rd of shins). Negative for: calf tenderness, joint swelling, tenderness - Neurological Exam awake and alert, following all commands appropriately, moving all extremities spontaneously - Psychiatric Exam Psychiatric exam: Normal Affect, Normal Mood - Skin Skin Exam: Dry, Intact, Normal Color, Warm Assessment and Plan - Assessment and Plan (Free Text) Assessment: This is a 72 yo F with extensive PMH, including Cirrhosis (suspected 2/2 Hep C) with recurrent ascites, chronic AFib on Eliquis, CAD s/p stent, HTN, DM, PUD with hx bleeding ulcer, CKD, and Breast Ca s/p partial resection and chemo, and anemia who presents with complaint of worsening abdominal pain, febrile sensation. GI was consulted for symptoms highly concerning for SBP. Plan: Cirrhosis (suspected 2/2 Hep C) with recurrent ascites, bi-weekly paracenteses chronic AFib on Eliquis DM PUD with hx bleeding ulcer CKD Breast Ca s/p partial resection and chemo Thrombocytopenia Suspected SBP, possible sepsis Rectal bleeding -Story and symptoms highly concerning for SBP, s/p 4 days of Merrem, now on day 3 of PO Augmentin BID, as per ID complete 3 more days BID and then once weekly Augmentin for SBP ppx -Ascites cell counts back, still pending ascites albumin to calculate SAAG but unlikely SBP as PMNs < 250, however tap obtained after several days of IV abx -WBCs 5.1, afebrile -Thrombocytopenia improved to 59 (was 43), manual count 96 -On schedule for paracentesis with IR today, informed IR head pumper that this isn 't just routine paracentesis, concern for SBP, so need cytology sent, she made note and confirmed cytology will be sent -Hep C PCR positive, AFP wnl -Hold further tylenol due to cirrhosis, use active cooling measures as needed -continue Pancreatitic enzyme supplementation, 5000 units with meals -rectal exam unremarkable, bleeding possibly leakage due to low platelets +/- restarting home Eliquis; remains hemodynamically stable, Hgb improved to 9.9 despite bleeding (was 9.1), and manual platelets at 96, so no acute intervention indicated at this time, will stop Eliquis and monitor -Strongly encouraged patient to follow up with her outpatient Heme-onc and outpatient GI after discharge to review all records, and for improved continuity of care Patient seen, reviewed, and discussed with attending, Dr. Carolina
--- NOTE | 2018-04-04 15:48 | PN ---
DATE: 04/04/2018 SUBJECTIVE: The patient is 72-year-old, seen and examined yesterday. Yesterday's events noted. The patient has episodes of rectal bleeding. The patient was started on Eliquis, although her platelets are running on average than she usually has and denies any abdominal discomfort. No nausea or vomiting. OBJECTIVE: VITAL SIGNS: She is afebrile, pulse 65, respirations 20, and blood pressure 129/66. LUNGS: Bilateral fair airflow. No rhonchi or crackle. HEART: S1, S2, audible. ABDOMEN: Soft, slightly distended with the fluid. NEUROLOGIC: Patient is awake, alert, oriented, and communicative. LABORATORY DATA: WBC 5.1, hemoglobin 9.9, hematocrit 29.5, and platelets 59. Chemistries: Sodium 135, potassium 4.8, chloride 103, CO2 of 24. BUN 28, creatinine 0.8. Blood sugar of 236. Ascitic fluid, no growth. Blood culture and urine cultures are negative. ASSESSMENT: 1. Cirrhotic ascites. 2. Rectal bleeding secondary to coagulopathy. 3. Chronic atrial fibrillation, on Eliquis, but has been on hold. 4. Coronary artery disease, status post angioplasty. 5. History of cirrhosis of liver. 6. Hepatitis C. PLAN: We will hold her Eliquis. We will monitor her CBC. If the patient remains stable, will discharge. Wilda Saha MD
--- NOTE | 2018-04-04 16:46 | CP.PCM.PN ---
Subjective - Date & Time of Evaluation Date of Evaluation: 04/04/18 Time of Evaluation: 10:20 - Subjective Subjective: Afebrile, comfortable. Objective - Vital Signs/Intake and Output Vital Signs (last 24 hours): Temp Pulse Resp BP Pulse Ox 98.2 F 61 20 119/64 94 L 04/04/18 14:00 04/04/18 14:00 04/04/18 14:00 04/04/18 14:00 04/04/18 14:00 Intake and Output: 04/04/18 04/04/18 06:59 18:59 Intake Total 1180 Balance 1180 - Medications Medications: Current Medications Acetaminophen (Tylenol 325mg Tab) 325 mg PO Q6H PRN PRN Reason: Pain, Mild (1-3) Last Admin: 04/03/18 01:32 Dose: 325 mg Albumin Human (Albumin Human 25% (12.5 Gm/50 Ml)) 12.5 gm IV BID [facility] Last Admin: 04/04/18 10:00 Dose: 12.5 gm Amoxicillin/Clavulanate Potassium (Augmentin 875 Mg-125 Mg Tab) 1 tab PO Q12 [facility] PRN Reason: Protocol Stop: 04/07/18 10:01 Last Admin: 04/04/18 10:58 Dose: 1 tab Amylase (Pancrease 82759 U-5000 U-[id number] U) 5,000 unit PO AC [facility] Last Admin: 04/04/18 11:59 Dose: 5,000 unit Hydrocortisone (Anusol-Hc) 25 mg RC BID [facility] Last Admin: 04/04/18 11:04 Dose: Not Given Insulin Human Lispro (Humalog High) 0 units SC ACHS [facility] PRN Reason: Protocol Last Admin: 04/04/18 11:57 Dose: 4 units Latanoprost (Xalatan Opht) 0 ml OU HS [facility] Last Admin: 04/03/18 22:59 Dose: Not Given Letrozole (Femara) 2.5 mg PO DAILY [facility] Last Admin: 04/04/18 11:00 Dose: 2.5 mg Nadolol (Corgard) 20 mg PO BID [facility] Last Admin: 04/04/18 10:58 Dose: 20 mg Ondansetron HCl (Zofran Inj) 4 mg IVP Q6H PRN PRN Reason: Nausea/Vomiting Spironolactone (Aldactone) 50 mg PO BID [facility] Last Admin: 04/04/18 10:58 Dose: 50 mg Sucralfate (Carafate Oral Susp) 1 gm PO QID [facility] Last Admin: 04/04/18 14:01 Dose: 1 gm - Labs Labs: 04/04/18 08:00 04/04/18 08:00 PT 15.4 SECONDS (9.4-12.5) H 04/01/18 06:00 INR 1.33 (0.93-1.08) H 04/01/18 06:00 APTT 32.4 Seconds (25.1-36.5) 04/01/18 06:00 - Constitutional Appears: Chronically Ill - Head Exam Head Exam: NORMAL INSPECTION - Respiratory Exam Respiratory Exam: Decreased Breath Sounds - Cardiovascular Exam Cardiovascular Exam: +S1, +S2 - GI/Abdominal Exam GI & Abdominal Exam: Soft. absent: Tenderness Assessment and Plan - Assessment and Plan (Free Text) Plan: Assessment Sepsis R/O spontaneous bacterial peritonitis S/P paracentesis (ascitic fluid cx is negative but it was taken while patient is on antibiotics) Hepatitis C with liver cirrhosis PUD GERD history of ESBL E. coli pyelonephritis Plan continue Augmentin x 3 more days, then switch to weekly Augmentin for SBP prophylaxis
[2018-04-04] MEDS: Latanoprost 2.5 ml Opht Soln OU SCH ×2 (21:18→21:21)
[2018-04-05 06:56] LABS: BASO # 0.02 K/mm3 (0.0-2.0); BASO % 0.5 % (0.0-3.0); EOS # 0.2 (0.0-0.7); EOS % 4.1 % (1.5-5.0); GRAN # 3.06 (1.4-6.5); GRAN % 73.5 % (50.0-68.0); LYMPH # 0.7 (1.2-3.4); LYMPH % 15.9 % (22.0-35.0); MEAN CELL VOLUME 85.3 fl (80.0-105.0); MEAN CORPUSCULAR HEMOGLOBIN 28.8 pg (25.0-35.0); MEAN CORPUSCULAR HGB CONC 33.7 g/dl (31.0-37.0); MEAN PLATELET VOLUME 9.6 fl (7.0-11.0); MONO # 0.3 (0.1-0.6); RBC 3.13 10^6/uL (3.5-6.1); RED CELL DISTRIBUTION WIDTH 15.5 % (11.5-14.5); WHITE BLOOD COUNT 4.2 10^3/ul (4.5-11.0)
[2018-04-05] MEDS: Amylase/Lipase/Protease 5,000 Units ECC PO SCH ×3 (07:47→17:28)
[2018-04-05] MEDS: Insulin Lispro (HUMAlog) HIGH Coverage SC SCH ×4 (07:47→22:30)
--- NOTE | 2018-04-05 08:50 | CP.PCM.PN ---
<Deuce Valladares - Last Filed: 04/05/18 08:59> Subjective - Date & Time of Evaluation Date of Evaluation: 04/05/18 Time of Evaluation: 07:10 - Subjective Subjective: GI Progress Note for Dr. Ge Valladares, PGY-3 IM Patient seen and examined at bedside. No further bleeding episodes reported by patient or nursing, but stool guiac is positive. Patient reports feeling better overall today. Pend AM bloodwork to assess Hgb and manual platelet count. Remains off Eliquis since last does 2 days prior. Objective - Vital Signs/Intake and Output Vital Signs (last 24 hours): Temp Pulse Resp BP Pulse Ox 97.7 F 63 16 107/59 L 98 04/05/18 06:00 04/05/18 06:00 04/05/18 06:00 04/05/18 06:00 04/05/18 06:00 Intake and Output: 04/05/18 04/05/18 06:59 18:59 Intake Total 620 Balance 620 - Medications Medications: Current Medications Acetaminophen (Tylenol 325mg Tab) 325 mg PO Q6H PRN PRN Reason: Pain, Mild (1-3) Last Admin: 04/03/18 01:32 Dose: 325 mg Albumin Human (Albumin Human 25% (12.5 Gm/50 Ml)) 12.5 gm IV BID [facility] Last Admin: 04/04/18 17:40 Dose: 12.5 gm Amoxicillin/Clavulanate Potassium (Augmentin 875 Mg-125 Mg Tab) 1 tab PO Q12 [facility] PRN Reason: Protocol Stop: 04/07/18 10:01 Last Admin: 04/04/18 21:19 Dose: 1 tab Amylase (Pancrease 00074 U-5000 U-[id number] U) 5,000 unit PO AC [facility] Last Admin: 04/05/18 07:47 Dose: 5,000 unit Hydrocortisone (Cortizone 2.5% Cream) 1 applic TOP BID [facility] Insulin Human Lispro (Humalog High) 0 units SC ACHS [facility] PRN Reason: Protocol Last Admin: 04/05/18 07:47 Dose: 7 units Letrozole (Femara) 2.5 mg PO DAILY [facility] Last Admin: 04/04/18 11:00 Dose: 2.5 mg Nadolol (Corgard) 20 mg PO BID [facility] Last Admin: 04/04/18 17:39 Dose: 20 mg Ondansetron HCl (Zofran Inj) 4 mg IVP Q6H PRN PRN Reason: Nausea/Vomiting Spironolactone (Aldactone) 50 mg PO BID [facility] Last Admin: 04/04/18 17:39 Dose: 50 mg Sucralfate (Carafate Oral Susp) 1 gm PO QID [facility] Last Admin: 04/04/18 21:19 Dose: 1 gm - Labs Labs: 04/05/18 06:00 04/04/18 08:00 PT 15.4 SECONDS (9.4-12.5) H 04/01/18 06:00 INR 1.33 (0.93-1.08) H 04/01/18 06:00 APTT 32.4 Seconds (25.1-36.5) 04/01/18 06:00 - Additional Findings Additional findings: - Constitutional Appears: Non-toxic, No Acute Distress - Head Exam Head Exam: ATRAUMATIC, NORMAL INSPECTION, NORMOCEPHALIC - Eye Exam Eye Exam: EOMI, Normal appearance. absent: Conjunctival injection, Scleral icterus Pupil Exam: absent: Fixed, Irregular - ENT Exam ENT Exam: Mucous Membranes Moist - Neck Exam Neck exam: Positive for: Normal Inspection - Respiratory Exam Respiratory Exam: Clear to Auscultation Bilateral, NORMAL BREATHING PATTERN. absent: Accessory Muscle Use, Chest Wall Tenderness, Decreased Breath Sounds, Rales, Rhonchi, Wheezes, Respiratory Distress, Stridor - Cardiovascular Exam Cardiovascular Exam: RRR, +S1, +S2. absent: Bradycardia, Tachycardia, Irregular Rhythm, JVD, +S4 - GI/Abdominal Exam less distant-sounding bowel sounds less distended abdomen, soft on palpation mild tenderness diffusely, improved compared to prior exams - Extremities Exam Extremities exam: Positive for: pedal edema (+1 pitting edema in bilateral LE from ankles to bottom 2/3rd of shins). Negative for: calf tenderness, joint swelling, tenderness - Neurological Exam awake and alert, following all commands appropriately, moving all extremities spontaneously - Psychiatric Exam Psychiatric exam: Normal Affect, Normal Mood - Skin Skin Exam: Dry, Intact, Normal Color, Warm Assessment and Plan - Assessment and Plan (Free Text) Assessment: This is a 72 yo F with extensive PMH, including Cirrhosis (suspected 2/2 Hep C) with recurrent ascites, chronic AFib on Eliquis, CAD s/p stent, HTN, DM, PUD with hx bleeding ulcer, CKD, and Breast Ca s/p partial resection and chemo, and anemia who presents with complaint of worsening abdominal pain, febrile sensation. GI was consulted for symptoms highly concerning for SBP. Plan: Cirrhosis (suspected 2/2 Hep C) with recurrent ascites, bi-weekly paracenteses chronic AFib on Eliquis DM PUD with hx bleeding ulcer CKD Breast Ca s/p partial resection and chemo Thrombocytopenia Suspected SBP, possible sepsis Rectal bleeding - resolved -Story and symptoms highly concerning for SBP, s/p 4 days of Merrem, now on day 3 of PO Augmentin BID, as per ID complete 3 more days BID and then once weekly Augmentin for SBP ppx -Ascites cell counts back, still pending ascites albumin to calculate SAAG but unlikely SBP as PMNs < 250, however tap obtained after several days of IV abx -WBCs 5.1, afebrile -On schedule for paracentesis with IR today, informed IR workers compensation legal secretary that this isn 't just routine paracentesis, concern for SBP, so need cytology sent, she made note and confirmed cytology will be sent -Hep C PCR positive, AFP wnl -Hold further tylenol due to cirrhosis, use active cooling measures as needed -continue Pancreatitic enzyme supplementation, 5000 units with meals -no further reported rectal bleeding as per pt and nursing, Hgb decreased from 9.9 to 9.0, plts 53 (was 59), pending manual count, remains hemodynamically stable; continue to hold Eliquis and monitor H&H -Strongly encouraged patient to follow up with her outpatient Heme-onc and outpatient GI after discharge to review all records, and for improved continuity of care Patient seen, reviewed, and discussed with attending, Dr. Carolina <Jared Carolina V - Last Filed: 04/05/18 23:41> Objective - Vital Signs/Intake and Output Vital Signs (last 24 hours): Temp Pulse Resp BP Pulse Ox 99 F 67 18 113/56 L 100 04/05/18 21:53 04/05/18 21:53 04/05/18 21:53 04/05/18 21:53 04/05/18 21:53 Intake and Output: 04/05/18 04/06/18 18:59 06:59 Intake Total 480 620 Balance 480 620 - Medications Medications: Current Medications Acetaminophen (Tylenol 325mg Tab) 325 mg PO Q6H PRN PRN Reason: Pain, Mild (1-3) Last Admin: 04/03/18 01:32 Dose: 325 mg Albumin Human (Albumin Human 25% (12.5 Gm/50 Ml)) 12.5 gm IV BID [facility] Last Admin: 04/05/18 17:29 Dose: 12.5 gm Amoxicillin/Clavulanate Potassium (Augmentin 875 Mg-125 Mg Tab) 1 tab PO Q12 [facility] PRN Reason: Protocol Stop: 04/07/18 10:01 Last Admin: 04/05/18 21:50 Dose: 1 tab Amylase (Pancrease 54284 U-5000 U-[id number] U) 5,000 unit PO AC [facility] Last Admin: 04/05/18 17:28 Dose: 5,000 unit Furosemide (Lasix) 40 mg IVP DAILY [facility] Last Admin: 04/05/18 13:08 Dose: 40 mg Hydrocortisone (Cortizone 2.5% Cream) 1 applic TOP BID [facility] Last Admin: 04/05/18 17:25 Dose: 1 applic Insulin Human Lispro (Humalog High) 0 units SC ACHS [facility] PRN Reason: Protocol Last Admin: 04/05/18 17:25 Dose: 7 units Letrozole (Femara) 2.5 mg PO DAILY [facility] Last Admin: 04/05/18 10:22 Dose: 2.5 mg Nadolol (Corgard) 20 mg PO BID [facility] Last Admin: 04/05/18 17:24 Dose: 20 mg Ondansetron HCl (Zofran Inj) 4 mg IVP Q6H PRN PRN Reason: Nausea/Vomiting Spironolactone (Aldactone) 50 mg PO BID [facility] Last Admin: 04/05/18 17:23 Dose: 50 mg Sucralfate (Carafate Oral Susp) 1 gm PO QID [facility] Last Admin: 04/05/18 21:50 Dose: 1 gm - Labs Labs: 04/05/18 06:00 04/04/18 08:00 PT 15.4 SECONDS (9.4-12.5) H 04/01/18 06:00 INR 1.33 (0.93-1.08) H 04/01/18 06:00 APTT 32.4 Seconds (25.1-36.5) 04/01/18 06:00 Attending/Attestation - Attestation I have personally seen and examined this patient.: Yes I have fully participated in the care of the patient.: Yes I have reviewed all pertinent clinical information, including history, physical exam and plan: Yes
[2018-04-05] MEDS: Albumin Human 25% (12.5 gm/50 ml) IV SCH ×2 (10:17→17:29)
[2018-04-05] MEDS: Amoxicillin-Clav 875-125 mg Tab PO SCH ×2 (10:21→21:50)
[2018-04-05] MEDS: Sucralfate 1 gm/10 ml Oral Susp UD PO SCH ×4 (10:21→21:50)
--- NOTE | 2018-04-05 11:32 | CP.PCM.PN ---
Subjective - Date & Time of Evaluation Date of Evaluation: 04/05/18 Time of Evaluation: 10:30 - Subjective Subjective: Afebrile, not in distress. Objective - Vital Signs/Intake and Output Vital Signs (last 24 hours): Temp Pulse Resp BP Pulse Ox 97.7 F 63 16 107/59 L 98 04/05/18 06:00 04/05/18 06:00 04/05/18 06:00 04/05/18 06:00 04/05/18 06:00 Intake and Output: 04/05/18 04/05/18 06:59 18:59 Intake Total 620 Balance 620 - Medications Medications: Current Medications Acetaminophen (Tylenol 325mg Tab) 325 mg PO Q6H PRN PRN Reason: Pain, Mild (1-3) Last Admin: 04/03/18 01:32 Dose: 325 mg Albumin Human (Albumin Human 25% (12.5 Gm/50 Ml)) 12.5 gm IV BID [facility] Last Admin: 04/04/18 17:40 Dose: 12.5 gm Amoxicillin/Clavulanate Potassium (Augmentin 875 Mg-125 Mg Tab) 1 tab PO Q12 [facility] PRN Reason: Protocol Stop: 04/07/18 10:01 Last Admin: 04/04/18 21:19 Dose: 1 tab Amylase (Pancrease 39852 U-5000 U-[id number] U) 5,000 unit PO AC [facility] Last Admin: 04/05/18 07:47 Dose: 5,000 unit Hydrocortisone (Cortizone 2.5% Cream) 1 applic TOP BID [facility] Insulin Human Lispro (Humalog High) 0 units SC ACHS [facility] PRN Reason: Protocol Last Admin: 04/05/18 07:47 Dose: 7 units Letrozole (Femara) 2.5 mg PO DAILY [facility] Last Admin: 04/04/18 11:00 Dose: 2.5 mg Nadolol (Corgard) 20 mg PO BID [facility] Last Admin: 04/04/18 17:39 Dose: 20 mg Ondansetron HCl (Zofran Inj) 4 mg IVP Q6H PRN PRN Reason: Nausea/Vomiting Spironolactone (Aldactone) 50 mg PO BID [facility] Last Admin: 04/04/18 17:39 Dose: 50 mg Sucralfate (Carafate Oral Susp) 1 gm PO QID [facility] Last Admin: 04/04/18 21:19 Dose: 1 gm - Labs Labs: 04/05/18 06:00 04/04/18 08:00 PT 15.4 SECONDS (9.4-12.5) H 04/01/18 06:00 INR 1.33 (0.93-1.08) H 04/01/18 06:00 APTT 32.4 Seconds (25.1-36.5) 04/01/18 06:00 - Constitutional Appears: Chronically Ill - Head Exam Head Exam: NORMAL INSPECTION - Respiratory Exam Respiratory Exam: Decreased Breath Sounds - Cardiovascular Exam Cardiovascular Exam: +S1, +S2 - GI/Abdominal Exam GI & Abdominal Exam: Soft. absent: Tenderness Assessment and Plan - Assessment and Plan (Free Text) Plan: Assessment Sepsis R/O spontaneous bacterial peritonitis S/P paracentesis (ascitic fluid cx is negative but it was taken while patient is on antibiotics) Hepatitis C with liver cirrhosis PUD GERD history of ESBL E. coli pyelonephritis Plan continue Augmentin x 2 more days, then switch to weekly Augmentin for SBP prophylaxis overall prognosis is poor
--- NOTE | 2018-04-05 13:24 | PN ---
DATE: 04/05/2018 SUBJECTIVE: The patient is 72 years old, seen and examined, sitting in chair, seems to be uncomfortable with abdominal distention again, uncomfortable to go home. No more rectal bleeding. No nausea or vomiting. Eating fair. PHYSICAL EXAMINATION: VITAL SIGNS: She is afebrile, pulse 65, respirations 16, blood pressure 110/63. LUNGS: Bilateral fair airflow, decreased at bases. HEART: S1, S2 audible. ABDOMEN: Distended with fluid thrill. EXTREMITIES: Bilateral legs +1 edema. LABORATORY EXAM: WBC is 4.2, hemoglobin 9, hematocrit 26.7 and platelet of 53. Chemistry: Blood sugar is 277. Stool for Hemoccult is positive. Hep C is reactive. The patient states she was treated in the past. ASSESSMENT: 1. Abdominal distention secondary to cirrhotic ascites. 2. History of hepatitis C. 3. Chronic atrial fibrillation, off of anticoagulant because of recent episode of rectal bleeding. 4. Peptic ulcer disease. 5. Insulin-dependent diabetes. 6. Coronary artery disease status post multiple angioplasty. PLAN: I will reach out to Dr. Kenny Munoz. The patient is getting ready to be discharged, but she is too uncomfortable to go home. She has built up her fluid. I discussed with her for possible tunneled catheter or Aspira catheter. It has risk of infection or spontaneous bacterial peritonitis, but she states it is too hard for her to keep on getting paracentesis. She will reach out to the GI in [place] too. After I speak to Dr. Kenny Munoz, we will decide further. I hold Eliquis for now. If she is not going for paracentesis, we will give her the evening dose. Wilda Saha MD
--- NOTE | 2018-04-06 07:56 | CP.PCM.PN ---
<Deuce Valladares - Last Filed: 04/06/18 15:11> Subjective - Date & Time of Evaluation Date of Evaluation: 04/06/18 Time of Evaluation: 08:30 - Subjective Subjective: GI Progress Note for Dr. Ge Valladares, PGY-3 IM Patient seen and examined at bedside. No further bleeding episodes reported by patient or nursing. Patient reports feeling better overall, but having increased abdominal discomfort due to re-accumulating ascites. Remains off Eliquis since last dose 3 days prior. Pending decision between PMD and IR for possible additional paracentesis vs drain placement. Objective - Vital Signs/Intake and Output Vital Signs (last 24 hours): Temp Pulse Resp BP Pulse Ox 99.0 F 67 18 113/56 L 99 04/05/18 22:00 04/05/18 22:00 04/05/18 22:00 04/05/18 22:00 04/05/18 22:00 Intake and Output: 04/06/18 04/06/18 06:59 18:59 Intake Total 800 Balance 800 - Medications Medications: Current Medications Acetaminophen (Tylenol 325mg Tab) 325 mg PO Q6H PRN PRN Reason: Pain, Mild (1-3) Last Admin: 04/03/18 01:32 Dose: 325 mg Albumin Human (Albumin Human 25% (12.5 Gm/50 Ml)) 12.5 gm IV BID [facility] Last Admin: 04/05/18 17:29 Dose: 12.5 gm Amoxicillin/Clavulanate Potassium (Augmentin 875 Mg-125 Mg Tab) 1 tab PO Q12 [facility] PRN Reason: Protocol Stop: 04/07/18 10:01 Last Admin: 04/05/18 21:50 Dose: 1 tab Amylase (Pancrease 34317 U-5000 U-[id number] U) 5,000 unit PO AC [facility] Last Admin: 04/05/18 17:28 Dose: 5,000 unit Furosemide (Lasix) 40 mg IVP DAILY [facility] Last Admin: 04/05/18 13:08 Dose: 40 mg Hydrocortisone (Cortizone 2.5% Cream) 1 applic TOP BID [facility] Last Admin: 04/05/18 17:25 Dose: 1 applic Insulin Human Lispro (Humalog High) 0 units SC ACHS [facility] PRN Reason: Protocol Last Admin: 04/05/18 22:30 Dose: Not Given Letrozole (Femara) 2.5 mg PO DAILY [facility] Last Admin: 04/05/18 10:22 Dose: 2.5 mg Nadolol (Corgard) 20 mg PO BID [facility] Last Admin: 04/05/18 17:24 Dose: 20 mg Ondansetron HCl (Zofran Inj) 4 mg IVP Q6H PRN PRN Reason: Nausea/Vomiting Spironolactone (Aldactone) 50 mg PO BID [facility] Last Admin: 04/05/18 17:23 Dose: 50 mg Sucralfate (Carafate Oral Susp) 1 gm PO QID [facility] Last Admin: 04/05/18 21:50 Dose: 1 gm - Labs Labs: 04/05/18 06:00 04/04/18 08:00 PT 15.4 SECONDS (9.4-12.5) H 04/01/18 06:00 INR 1.33 (0.93-1.08) H 04/01/18 06:00 APTT 32.4 Seconds (25.1-36.5) 04/01/18 06:00 - Additional Findings Additional findings: - Constitutional Appears: Non-toxic, No Acute Distress - Head Exam Head Exam: ATRAUMATIC, NORMAL INSPECTION, NORMOCEPHALIC - Eye Exam Eye Exam: EOMI, Normal appearance. absent: Conjunctival injection, Scleral icterus Pupil Exam: absent: Fixed, Irregular - ENT Exam ENT Exam: Mucous Membranes Moist - Neck Exam Neck exam: Positive for: Normal Inspection - Respiratory Exam Respiratory Exam: Clear to Auscultation Bilateral, NORMAL BREATHING PATTERN. absent: Accessory Muscle Use, Chest Wall Tenderness, Decreased Breath Sounds, Rales, Rhonchi, Wheezes, Respiratory Distress, Stridor - Cardiovascular Exam Cardiovascular Exam: RRR, +S1, +S2. absent: Bradycardia, Tachycardia, Irregular Rhythm, JVD, +S4 - GI/Abdominal Exam less distant-sounding bowel sounds more distended abdomen, but still soft on palpation discomfort on abdominal palpation only, no tenderness - Extremities Exam Extremities exam: Positive for: pedal edema (+1 pitting edema in bilateral LE from ankles to bottom 2/3rd of shins). Negative for: calf tenderness, joint swelling, tenderness - Neurological Exam awake and alert, following all commands appropriately, moving all extremities spontaneously - Psychiatric Exam Psychiatric exam: Normal Affect, Normal Mood - Skin Skin Exam: Dry, Intact, Normal Color, Warm Assessment and Plan - Assessment and Plan (Free Text) Assessment: This is a 72 yo F with extensive PMH, including Cirrhosis (suspected 2/2 Hep C) with recurrent ascites, chronic AFib on Eliquis, CAD s/p stent, HTN, DM, PUD with hx bleeding ulcer, CKD, and Breast Ca s/p partial resection and chemo, and anemia who presents with complaint of worsening abdominal pain, febrile sensation. GI was consulted for symptoms highly concerning for SBP. Plan: Cirrhosis (suspected 2/2 Hep C) with recurrent ascites, bi-weekly paracenteses chronic AFib on Eliquis DM PUD with hx bleeding ulcer CKD Breast Ca s/p partial resection and chemo Thrombocytopenia Suspected SBP, possible sepsis Rectal bleeding - resolved -Story and symptoms highly concerning for SBP, s/p 4 days of Merrem, now on day 5 of PO Augmentin BID, as per ID complete 1 more day BID and then once weekly Augmentin for SBP ppx -Ascites cell counts back, still pending ascites albumin to calculate SAAG but unlikely SBP as PMNs < 250, however tap obtained after several days of IV abx -WBCs 5.9, afebrile -Pending possible repeat paracentesis vs drain placement -Hep C PCR positive, AFP wnl -Hold further tylenol due to cirrhosis, use active cooling measures as needed -continue Pancreatitic enzyme supplementation, 5000 units with meals -no further reported rectal bleeding as per pt and nursing, Hgb increased to 10.4, plts 63 (was 53), manual count 69, remains hemodynamically stable; continue to hold Eliquis and monitor H&H -Strongly encouraged patient to follow up with her outpatient Heme-onc and outpatient GI after discharge to review all records, and for improved continuity of care Patient seen, reviewed, and discussed with attending, Dr. Carolina <Jared Carolina V - Last Filed: 04/06/18 23:07> Objective - Vital Signs/Intake and Output Vital Signs (last 24 hours): Temp Pulse Resp BP Pulse Ox 99.2 F 68 18 109/54 L 97 04/06/18 22:29 04/06/18 22:29 04/06/18 22:29 04/06/18 22:29 04/06/18 22:29 - Medications Medications: Current Medications Acetaminophen (Tylenol 325mg Tab) 325 mg PO Q6H PRN PRN Reason: Pain, Mild (1-3) Last Admin: 04/03/18 01:32 Dose: 325 mg Albumin Human (Albumin Human 25% (12.5 Gm/50 Ml)) 12.5 gm IV BID [facility] Last Admin: 04/06/18 18:04 Dose: 12.5 gm Amylase (Pancrease 42345 U-5000 U-45065 U) 5,000 unit PO AC [facility] Last Admin: 04/06/18 16:46 Dose: 5,000 unit Furosemide (Lasix) 40 mg IVP DAILY [facility] Last Admin: 04/06/18 10:54 Dose: 40 mg Hydrocortisone (Cortizone 2.5% Cream) 1 applic TOP BID [facility] Last Admin: 04/06/18 18:05 Dose: 1 applic Insulin Human Lispro (Humalog High) 0 units SC ACHS [facility] PRN Reason: Protocol Last Admin: 04/06/18 16:46 Dose: 7 units Letrozole (Femara) 2.5 mg PO DAILY [facility] Last Admin: 04/06/18 11:01 Dose: 2.5 mg Nadolol (Corgard) 20 mg PO BID [facility] Last Admin: 04/06/18 18:05 Dose: 20 mg Ondansetron HCl (Zofran Inj) 4 mg IVP Q6H PRN PRN Reason: Nausea/Vomiting Spironolactone (Aldactone) 50 mg PO BID [facility] Last Admin: 04/06/18 18:05 Dose: 50 mg Sucralfate (Carafate Oral Susp) 1 gm PO QID [facility] Last Admin: 04/06/18 21:57 Dose: 1 gm - Labs Labs: 04/06/18 10:50 04/04/18 08:00 PT 15.4 SECONDS (9.4-12.5) H 04/01/18 06:00 INR 1.33 (0.93-1.08) H 04/01/18 06:00 APTT 32.4 Seconds (25.1-36.5) 04/01/18 06:00 Attending/Attestation - Attestation I have personally seen and examined this patient.: Yes I have fully participated in the care of the patient.: Yes I have reviewed all pertinent clinical information, including history, physical exam and plan: Yes Notes (Text): This an addendum to GI the consultation/follow up note dictated by GI fellow/ resident This patient was seen and evaluated earlier. Agreed with findings and recommendations and they were personally reviewed and discussed with me . 04/06/18 23:07
[2018-04-06] MEDS: Amylase/Lipase/Protease 5,000 Units ECC PO SCH ×3 (08:22→16:46)
[2018-04-06] MEDS: Insulin Lispro (HUMAlog) HIGH Coverage SC SCH ×4 (08:22→22:00)
[2018-04-06] MEDS: Amoxicillin-Clav 875-125 mg Tab PO SCH (10:53)
[2018-04-06] MEDS: Albumin Human 25% (12.5 gm/50 ml) IV SCH ×2 (10:53→18:04)
[2018-04-06] MEDS: Sucralfate 1 gm/10 ml Oral Susp UD PO SCH ×4 (10:54→21:57)
[2018-04-06 11:00] LABS: BASO # 0.01 K/mm3 (0.0-2.0); BASO % 0.2 % (0.0-3.0); EOS # 0.2 (0.0-0.7); EOS % 2.9 % (1.5-5.0); GRAN # 4.74 (1.4-6.5); GRAN % 79.9 % (50.0-68.0); HEMOGLOBIN 10.4 g/dL (12.0-16.0); LYMPH # 0.7 (1.2-3.4); LYMPH % 12.1 % (22.0-35.0); MEAN CELL VOLUME 86.8 fl (80.0-105.0); MEAN CORPUSCULAR HEMOGLOBIN 29.1 pg (25.0-35.0); MEAN CORPUSCULAR HGB CONC 33.5 g/dl (31.0-37.0); MEAN PLATELET VOLUME 9.6 fl (7.0-11.0); MONO # 0.3 (0.1-0.6); MONO % 4.9 % (1.0-6.0); RBC 3.57 10^6/uL (3.5-6.1); RED CELL DISTRIBUTION WIDTH 15.8 % (11.5-14.5); WHITE BLOOD COUNT 5.9 10^3/ul (4.5-11.0)
--- NOTE | 2018-04-06 11:35 | CP.PCM.PN ---
Subjective - Date & Time of Evaluation Date of Evaluation: 04/06/18 Time of Evaluation: 10:40 - Subjective Subjective: Comfortable on a chair but feels her belly is more distended, no fevers. Objective - Vital Signs/Intake and Output Vital Signs (last 24 hours): Temp Pulse Resp BP Pulse Ox 99.0 F 67 18 113/56 L 99 04/05/18 22:00 04/05/18 22:00 04/05/18 22:00 04/05/18 22:00 04/05/18 22:00 Intake and Output: 04/06/18 04/06/18 06:59 18:59 Intake Total 800 Balance 800 - Medications Medications: Current Medications Acetaminophen (Tylenol 325mg Tab) 325 mg PO Q6H PRN PRN Reason: Pain, Mild (1-3) Last Admin: 04/03/18 01:32 Dose: 325 mg Albumin Human (Albumin Human 25% (12.5 Gm/50 Ml)) 12.5 gm IV BID [facility] Last Admin: 04/05/18 17:29 Dose: 12.5 gm Amoxicillin/Clavulanate Potassium (Augmentin 875 Mg-125 Mg Tab) 1 tab PO Q12 [facility] PRN Reason: Protocol Stop: 04/07/18 10:01 Last Admin: 04/05/18 21:50 Dose: 1 tab Amylase (Pancrease 37445 U-5000 U-[id number] U) 5,000 unit PO AC [facility] Last Admin: 04/06/18 08:22 Dose: 5,000 unit Furosemide (Lasix) 40 mg IVP DAILY [facility] Last Admin: 04/05/18 13:08 Dose: 40 mg Hydrocortisone (Cortizone 2.5% Cream) 1 applic TOP BID [facility] Last Admin: 04/05/18 17:25 Dose: 1 applic Insulin Human Lispro (Humalog High) 0 units SC ACHS [facility] PRN Reason: Protocol Last Admin: 04/06/18 08:22 Dose: 4 units Letrozole (Femara) 2.5 mg PO DAILY [facility] Last Admin: 04/05/18 10:22 Dose: 2.5 mg Nadolol (Corgard) 20 mg PO BID [facility] Last Admin: 04/05/18 17:24 Dose: 20 mg Ondansetron HCl (Zofran Inj) 4 mg IVP Q6H PRN PRN Reason: Nausea/Vomiting Spironolactone (Aldactone) 50 mg PO BID [facility] Last Admin: 04/05/18 17:23 Dose: 50 mg Sucralfate (Carafate Oral Susp) 1 gm PO QID [facility] Last Admin: 04/05/18 21:50 Dose: 1 gm - Labs Labs: 04/05/18 06:00 04/04/18 08:00 PT 15.4 SECONDS (9.4-12.5) H 04/01/18 06:00 INR 1.33 (0.93-1.08) H 04/01/18 06:00 APTT 32.4 Seconds (25.1-36.5) 04/01/18 06:00 - Constitutional Appears: Chronically Ill - Head Exam Head Exam: NORMAL INSPECTION - Respiratory Exam Respiratory Exam: Decreased Breath Sounds - Cardiovascular Exam Cardiovascular Exam: +S1, +S2 - GI/Abdominal Exam GI & Abdominal Exam: Distended, Soft. absent: Tenderness Assessment and Plan - Assessment and Plan (Free Text) Plan: Assessment Sepsis R/O spontaneous bacterial peritonitis S/P paracentesis (ascitic fluid cx is negative but it was taken while patient is on antibiotics) Hepatitis C with liver cirrhosis PUD GERD history of ESBL E. coli pyelonephritis Plan continue Augmentin x 1 more day, then switch to weekly Augmentin for SBP prophylaxis follow up plan for repeat paracentesis overall prognosis is poor
--- NOTE | 2018-04-06 15:52 | PN ---
DATE: 04/06/2018 SUBJECTIVE: The patient is 72 years old, seen and examined, sitting in chair, seems to be uncomfortable, has abdominal distension, mild shortness of breath. No more rectal bleeding. Her Eliquis is on hold for two reasons; one, she had rectal bleeding and second, she is scheduled for paracentesis tomorrow, possible Aspira catheter placement. PHYSICAL EXAMINATION: VITAL SIGNS: She is afebrile, pulse 68, respirations 20, blood pressure 145/85. LUNGS: Bilateral fair airflow, decreased at bases. HEART: S1, S2 audible. ABDOMEN: Distended. No palpable discomfort, rebound or guarding. NEUROLOGICAL: She is awake, alert, oriented, communicative. LABORATORY EXAM: WBC 5.9, hemoglobin 10.4, hematocrit 31, platelet of 69. Chemistry: Blood sugar is 285. Blood culture, urine cultures are negative. Her ascitic fluid is also negative and did not grow any bacteria. ASSESSMENT: 1. Cirrhotic ascites. 2. History of hepatitis C. 3. Status post paracentesis that was done in 04/01 and 8 liter of fluid was drained. 4. Coronary artery disease, status post angioplasty. 5. Chronic atrial fibrillation. 6. Insulin-dependent diabetes. 7. Right breast cancer, status post mastectomy and now she has possible left breast tumor. PLAN: Patient is afebrile. Her white count is normal. Abdominal pain is better except distension. So we are going to discontinue antibiotics. Awaiting paracentesis and catheter placement and after that she will be discharged either today or tomorrow after catheter is placed. Patient is little reluctant but she will discuss with her GI in [place]. She is awaiting for call, after she discussed with her GI from [place], she will finalize. At this point, she is 50:50 to have catheter placed or not. Wilda Saha MD
--- NOTE | 2018-04-07 06:47 | CP.PCM.PN ---
<Deuce Valladares - Last Filed: 04/07/18 11:13> Subjective - Date & Time of Evaluation Date of Evaluation: 04/07/18 Time of Evaluation: 08:37 - Subjective Subjective: GI Progress Note for Dr. Ge Valladares, PGY-3 IM Patient seen and examined at bedside. No further bleeding episodes reported by patient or nursing. Worsening discomfort due to re-accumulated ascites. Pending paracentesis today, no Aspira cath at this time as per patient's decision. Wants to discuss with her outpatient PMD and GI further before considering progressing with Aspira cath. Objective - Vital Signs/Intake and Output Vital Signs (last 24 hours): Temp Pulse Resp BP Pulse Ox 99.2 F 68 18 109/54 L 97 04/06/18 22:29 04/06/18 22:29 04/06/18 22:29 04/06/18 22:29 04/06/18 22:29 Intake and Output: 04/06/18 04/07/18 18:59 06:59 Intake Total 120 Balance 120 - Medications Medications: Current Medications Acetaminophen (Tylenol 325mg Tab) 325 mg PO Q6H PRN PRN Reason: Pain, Mild (1-3) Last Admin: 04/03/18 01:32 Dose: 325 mg Albumin Human (Albumin Human 25% (12.5 Gm/50 Ml)) 12.5 gm IV BID [facility] Last Admin: 04/06/18 18:04 Dose: 12.5 gm Amylase (Pancrease 05398 U-5000 U-[id number] U) 5,000 unit PO AC [facility] Last Admin: 04/06/18 16:46 Dose: 5,000 unit Furosemide (Lasix) 40 mg IVP DAILY [facility] Last Admin: 04/06/18 10:54 Dose: 40 mg Hydrocortisone (Cortizone 2.5% Cream) 1 applic TOP BID [facility] Last Admin: 04/06/18 18:05 Dose: 1 applic Insulin Human Lispro (Humalog High) 0 units SC ACHS [facility] PRN Reason: Protocol Last Admin: 04/06/18 16:46 Dose: 7 units Letrozole (Femara) 2.5 mg PO DAILY [facility] Last Admin: 04/06/18 11:01 Dose: 2.5 mg Nadolol (Corgard) 20 mg PO BID [facility] Last Admin: 04/06/18 18:05 Dose: 20 mg Ondansetron HCl (Zofran Inj) 4 mg IVP Q6H PRN PRN Reason: Nausea/Vomiting Spironolactone (Aldactone) 50 mg PO BID [facility] Last Admin: 04/06/18 18:05 Dose: 50 mg Sucralfate (Carafate Oral Susp) 1 gm PO QID [facility] Last Admin: 04/06/18 21:57 Dose: 1 gm - Labs Labs: 04/06/18 10:50 04/04/18 08:00 PT 15.4 SECONDS (9.4-12.5) H 04/01/18 06:00 INR 1.33 (0.93-1.08) H 04/01/18 06:00 APTT 32.4 Seconds (25.1-36.5) 04/01/18 06:00 - Additional Findings Additional findings: - Constitutional Appears: Non-toxic, No Acute Distress - Head Exam Head Exam: ATRAUMATIC, NORMAL INSPECTION, NORMOCEPHALIC - Eye Exam Eye Exam: EOMI, Normal appearance. absent: Conjunctival injection, Scleral icterus Pupil Exam: absent: Fixed, Irregular - ENT Exam ENT Exam: Mucous Membranes Moist - Neck Exam Neck exam: Positive for: Normal Inspection - Respiratory Exam Respiratory Exam: Clear to Auscultation Bilateral, NORMAL BREATHING PATTERN. absent: Accessory Muscle Use, Chest Wall Tenderness, Decreased Breath Sounds, Rales, Rhonchi, Wheezes, Respiratory Distress, Stridor - Cardiovascular Exam Cardiovascular Exam: RRR, +S1, +S2. absent: Bradycardia, Tachycardia, Irregular Rhythm, JVD, +S4 - GI/Abdominal Exam more distended abdomen, firmer but not rigid on palpation discomfort on abdominal palpation only, no tenderness appreciable fluid wave, gravity dependent fluid (distention changes with position changes) - Extremities Exam Extremities exam: Positive for: pedal edema (+1 pitting edema in bilateral LE from ankles to bottom 2/3rd of shins). Negative for: calf tenderness, joint swelling, tenderness - Neurological Exam awake and alert, following all commands appropriately, moving all extremities spontaneously - Psychiatric Exam Psychiatric exam: Normal Affect, Normal Mood - Skin Skin Exam: Dry, Intact, Normal Color, Warm Assessment and Plan - Assessment and Plan (Free Text) Assessment: This is a 72 yo F with extensive PMH, including Cirrhosis (suspected 2/2 Hep C) with recurrent ascites, chronic AFib on Eliquis, CAD s/p stent, HTN, DM, PUD with hx bleeding ulcer, CKD, and Breast Ca s/p partial resection and chemo, and anemia who presents with complaint of worsening abdominal pain, febrile sensation. GI was consulted for symptoms highly concerning for SBP, however ascites tap not suggestive of SBP. Pending repeat paracentesis, and then possible discharge. Plan: Cirrhosis (suspected 2/2 Hep C) with recurrent ascites, bi-weekly paracenteses chronic AFib on Eliquis DM PUD with hx bleeding ulcer CKD Breast Ca s/p partial resection and chemo Thrombocytopenia Suspected SBP, possible sepsis Rectal bleeding - resolved -Story and symptoms highly concerning for SBP, s/p 4 days of IV Merrem and 6 days of PO Augmentin, as per ID once weekly Augmentin for SBP ppx -Ascites tap not suggestive of SBP, but obtained after already on several days IV abx, so may not be reliable -WBCs 5.2, afebrile -Pending paracentesis today, no aspira cath; depending on volume removed may need further albumin replacement post-procedure, will f/u -Hep C PCR positive, AFP wnl -Hold further tylenol due to cirrhosis, use active cooling measures as needed -continue Pancreatitic enzyme supplementation, 5000 units with meals -no further reported rectal bleeding as per pt and nursing, Hgb increased to 10.4, plts 63 (was 53), manual count 69, remains hemodynamically stable; continue to hold Eliquis and monitor H&H pending repeat paracentesis -Strongly encouraged patient to follow up with her outpatient Heme-onc and outpatient GI after discharge to review all records, and for improved continuity of care Patient seen, reviewed, and discussed with attending, Dr. Carolina <Jared Carolina V - Last Filed: 04/07/18 22:14> Objective - Vital Signs/Intake and Output Vital Signs (last 24 hours): Temp Pulse Resp BP Pulse Ox 97 F L 61 15 116/64 100 04/07/18 13:59 04/07/18 13:59 04/07/18 13:59 04/07/18 17:36 04/07/18 14:35 Intake and Output: 04/07/18 04/08/18 18:59 06:59 Intake Total 420 Balance 420 - Medications Medications: Current Medications Acetaminophen (Tylenol 325mg Tab) 325 mg PO Q6H PRN PRN Reason: Pain, Mild (1-3) Last Admin: 04/03/18 01:32 Dose: 325 mg Amoxicillin/Clavulanate Potassium (Augmentin 875 Mg-125 Mg Tab) 1 tab PO MON [facility] PRN Reason: Protocol Amylase (Pancrease 75487 U-5000 U-62489 U) 5,000 unit PO AC [facility] Last Admin: 04/07/18 16:44 Dose: 5,000 unit Apixaban (Eliquis) 2.5 mg PO BID [facility] PRN Reason: Protocol Last Admin: 04/07/18 17:38 Dose: 2.5 mg Furosemide (Lasix) 40 mg IVP DAILY [facility] Last Admin: 04/07/18 10:35 Dose: 40 mg Hydrocortisone (Cortizone 2.5% Cream) 1 applic TOP BID [facility] Last Admin: 04/07/18 17:39 Dose: 1 applic Insulin Human Lispro (Humalog High) 0 units SC ACHS [facility] PRN Reason: Protocol Last Admin: 04/07/18 21:18 Dose: Not Given Letrozole (Femara) 2.5 mg PO DAILY [facility] Last Admin: 04/07/18 10:50 Dose: 2.5 mg Nadolol (Corgard) 20 mg PO BID [facility] Last Admin: 04/07/18 17:36 Dose: 20 mg Ondansetron HCl (Zofran Inj) 4 mg IVP Q6H PRN PRN Reason: Nausea/Vomiting Spironolactone (Aldactone) 50 mg PO BID [facility] Last Admin: 04/07/18 17:37 Dose: 50 mg Sucralfate (Carafate Oral Susp) 1 gm PO QID [facility] Last Admin: 04/07/18 21:13 Dose: 1 gm Tramadol HCl (Ultram) 50 mg PO TID PRN PRN Reason: Pain, moderate (4-7) Last Admin: 04/07/18 16:42 Dose: 50 mg - Labs Labs: 04/07/18 08:50 04/04/18 08:00 PT 15.4 SECONDS (9.4-12.5) H 04/01/18 06:00 INR 1.33 (0.93-1.08) H 04/01/18 06:00 APTT 32.4 Seconds (25.1-36.5) 04/01/18 06:00 Attending/Attestation - Attestation I have personally seen and examined this patient.: Yes I have fully participated in the care of the patient.: Yes I have reviewed all pertinent clinical information, including history, physical exam and plan: Yes Notes (Text): This is an addendum to GI progress report dictated by the biomedical engineering director.The patient was seen and examined earlier. Medical records, lab studies, imagings were reviewed. Last 24 hours events reviewed. Agreed with the above treatment plan as outlined in Resident 's notes the with the addition of the following on examination abdomen was dnded Scheduled for large volume paracentesis Continue IV albumin On low-dose pancreatic enzyme supplement Off eliquis now no rectal bleeding further 04/07/18 22:03
[2018-04-07] MEDS: Insulin Lispro (HUMAlog) HIGH Coverage SC SCH ×4 (09:11→21:18)
[2018-04-07 09:47] LABS: BASO # 0.01 K/mm3 (0.0-2.0); BASO % 0.2 % (0.0-3.0); EOS # 0.2 (0.0-0.7); EOS % 3.3 % (1.5-5.0); GRAN # 4.04 (1.4-6.5); GRAN % 77.2 % (50.0-68.0); LYMPH # 0.3 (1.2-3.4); LYMPH % 6.1 % (22.0-35.0); MEAN CORPUSCULAR HEMOGLOBIN 28.8 pg (25.0-35.0); MEAN CORPUSCULAR HGB CONC 33.1 g/dl (31.0-37.0); MEAN PLATELET VOLUME 10.3 fl (7.0-11.0); MONO # 0.7 (0.1-0.6); MONO % 13.2 % (1.0-6.0); RBC 3.47 10^6/uL (3.5-6.1); RED CELL DISTRIBUTION WIDTH 15.9 % (11.5-14.5); WHITE BLOOD COUNT 5.2 10^3/ul (4.5-11.0)
[2018-04-07] MEDS: Albumin Human 25% (12.5 gm/50 ml) IV SCH ×2 (10:00→17:38)
[2018-04-07] MEDS: Sucralfate 1 gm/10 ml Oral Susp UD PO SCH ×4 (10:34→21:13)
[2018-04-07] MEDS: Amylase/Lipase/Protease 5,000 Units ECC PO SCH ×3 (10:34→16:44)
[2018-04-07] MEDS ORDERED: Lidocaine 2% Inj (20ml) ONE (12:22)
[2018-04-07] MEDS ORDERED: Midazolam 2 MG/2 ML VIAL ONE (12:53)
--- NOTE | 2018-04-07 13:30 | CP.PCM.PN ---
Subjective - Date & Time of Evaluation Date of Evaluation: 04/07/18 Time of Evaluation: 10:05 - Subjective Subjective: Patient is for repeat paracentesis today, no nausea, no diarrhea, belly is distended but no abdominal pain. Objective - Vital Signs/Intake and Output Vital Signs (last 24 hours): Temp Pulse Resp BP Pulse Ox 98.2 F 70 20 107/62 98 04/07/18 06:00 04/07/18 06:00 04/07/18 06:00 04/07/18 06:00 04/07/18 06:00 Intake and Output: 04/07/18 04/07/18 06:59 18:59 Intake Total 120 Balance 120 - Medications Medications: Current Medications Acetaminophen (Tylenol 325mg Tab) 325 mg PO Q6H PRN PRN Reason: Pain, Mild (1-3) Last Admin: 04/03/18 01:32 Dose: 325 mg Albumin Human (Albumin Human 25% (12.5 Gm/50 Ml)) 12.5 gm IV BID [facility] Last Admin: 04/06/18 18:04 Dose: 12.5 gm Amylase (Pancrease 37663 U-5000 U-[id number] U) 5,000 unit PO AC [facility] Last Admin: 04/06/18 16:46 Dose: 5,000 unit Furosemide (Lasix) 40 mg IVP DAILY [facility] Last Admin: 04/06/18 10:54 Dose: 40 mg Hydrocortisone (Cortizone 2.5% Cream) 1 applic TOP BID [facility] Last Admin: 04/06/18 18:05 Dose: 1 applic Insulin Human Lispro (Humalog High) 0 units SC ACHS [facility] PRN Reason: Protocol Last Admin: 04/06/18 16:46 Dose: 7 units Letrozole (Femara) 2.5 mg PO DAILY [facility] Last Admin: 04/06/18 11:01 Dose: 2.5 mg Nadolol (Corgard) 20 mg PO BID [facility] Last Admin: 04/06/18 18:05 Dose: 20 mg Ondansetron HCl (Zofran Inj) 4 mg IVP Q6H PRN PRN Reason: Nausea/Vomiting Spironolactone (Aldactone) 50 mg PO BID [facility] Last Admin: 04/06/18 18:05 Dose: 50 mg Sucralfate (Carafate Oral Susp) 1 gm PO QID [facility] Last Admin: 04/06/18 21:57 Dose: 1 gm - Labs Labs: 04/06/18 10:50 04/04/18 08:00 PT 15.4 SECONDS (9.4-12.5) H 04/01/18 06:00 INR 1.33 (0.93-1.08) H 04/01/18 06:00 APTT 32.4 Seconds (25.1-36.5) 04/01/18 06:00 - Constitutional Appears: Chronically Ill - Head Exam Head Exam: NORMAL INSPECTION - Neck Exam Neck Exam: absent: Meningismus - Respiratory Exam Respiratory Exam: Decreased Breath Sounds - Cardiovascular Exam Cardiovascular Exam: +S1, +S2 - GI/Abdominal Exam GI & Abdominal Exam: Distended, Soft. absent: Tenderness Assessment and Plan - Assessment and Plan (Free Text) Plan: Assessment Sepsis R/O spontaneous bacterial peritonitis S/P paracentesis (ascitic fluid cx is negative but it was taken while patient is on antibiotics) Hepatitis C with liver cirrhosis PUD GERD history of ESBL E. coli pyelonephritis Plan will continue weekly prophylactic Augmentin for SBP prophylaxis follow up results of the repeat paracentesis overall prognosis is poor
--- NOTE | 2018-04-07 14:28 | DS ---
HISTORY OF PRESENT ILLNESS: The patient is 72-year-old who was admitted with increasing abdominal distention. She had paracentesis done last Wednesday. She was doing well, had episode of rectal bleeding, probably secondary to rectal varices. Her Eliquis was held. During this time, she started to develop abdominal distention again. She was supposed to have paracentesis done, but because of this schedule, she did not have done. So she is scheduled for today to have a Aspira catheter placed. PHYSICAL EXAMINATION: GENERAL: She is awake and alert, able to communicate, seems uncomfortable because of her abdominal distention. VITAL SIGNS: She is afebrile, pulse 70, respirations 20, blood pressure . LUNGS: Bilateral fair airflow. No rhonchi or crackle. HEART: S1, S2 audible. Irregular rate control. ABDOMEN: Soft, but distended. Complaint of soreness because of distention. NEUROLOGICAL: She is awake, alert, oriented, communicative. LABORATORY EXAM: WBC is 5.2, hemoglobin 10, hematocrit 30 and platelets of 72. Chemistry: Blood sugar is 291. ASSESSMENT: 1. Abdominal distention secondary to cirrhosis of the liver. 2. Coronary artery disease, status post angioplasty. 3. Hypertension. 4. Hyperlipidemia. 5. Chronic atrial fibrillation. 6. Hepatitis C. 7. Chronic anemia. 8. Thrombocytopenia. 9. Status post right mastectomy, now she has mass in the left breast. PLAN: The patient will be going for catheter placement today. She will be restarted on Eliquis and she will be discharged later on today if she remains stable. Wilda Saha MD
--- NOTE | 2018-04-07 18:47 | VASCULAR ---
PROCEDURE: Ultrasound and fluoroscopically placed tunneled peritoneal catheter HISTORY: End-stage hepatitis-C cirrhosis. Recurrent massive ascites with abdominal pain and shortness of breath. Unresponsive to medical management. Needs tunneled catheter PHYSICIAN(S): Kenny Munoz MD. TECHNIQUE: The relative risks and indications of the procedure were explained the patient consent obtained. The patient is placed in a slight right decubitus position on the arteriography table and sonography abdomen performed. This revealed a large amount of ascites in the abdomen. A puncture site was selected in the right mid abdomen in the area prepped and draped usual sterile fashion. Conscious sedation monitoring were provided throughout the procedure by a nurse. An 18 gauge needle was advanced in the peritoneal cavity and 10 cc of clear straw-colored fluid aspirated. 0.035 glidewire was advanced posteriorly and superiorly. A peel-away sheath was placed. Next a 15.5 [place] Aspira catheter was advanced superiorly and posteriorly. The catheter was tunneled along the right abdominal wall. The catheter was secured. The patient tolerated the procedure well. The ascites was drained. 7500 cc of clear straw-colored fluid were removed. FINDINGS: . IMPRESSION: Ultrasound and fluoroscopically placed tunneled peritoneal catheter as described above. 7500 cc of clear straw-colored fluid were drained. No labs were sent
[2018-04-08] MEDS: Insulin Lispro (HUMAlog) HIGH Coverage SC SCH ×3 (08:00→17:42)
[2018-04-08] MEDS: Amylase/Lipase/Protease 5,000 Units ECC PO SCH ×3 (10:33→17:43)
[2018-04-08] MEDS: Sucralfate 1 gm/10 ml Oral Susp UD PO SCH ×3 (10:33→17:38)
--- NOTE | 2018-04-08 12:40 | CP.PCM.PN ---
Subjective - Date & Time of Evaluation Date of Evaluation: 04/07/18 Time of Evaluation: 11:00 - Subjective Subjective: No fevers, had paracentesis again yesterday, abdomen is feeling better. Objective - Vital Signs/Intake and Output Vital Signs (last 24 hours): Temp Pulse Resp BP Pulse Ox 97 F L 61 15 116/64 100 04/07/18 13:59 04/07/18 13:59 04/07/18 13:59 04/07/18 17:36 04/07/18 14:35 Intake and Output: 04/07/18 04/08/18 18:59 06:59 Intake Total 420 Balance 420 - Medications Medications: Current Medications Acetaminophen (Tylenol 325mg Tab) 325 mg PO Q6H PRN PRN Reason: Pain, Mild (1-3) Last Admin: 04/03/18 01:32 Dose: 325 mg Amoxicillin/Clavulanate Potassium (Augmentin 875 Mg-125 Mg Tab) 1 tab PO MON [facility] PRN Reason: Protocol Amylase (Pancrease 44672 U-5000 [id number] U) 5,000 unit PO AC [facility] Last Admin: 04/07/18 16:44 Dose: 5,000 unit Apixaban (Eliquis) 2.5 mg PO BID [facility] PRN Reason: Protocol Last Admin: 04/07/18 17:38 Dose: 2.5 mg Furosemide (Lasix) 40 mg IVP DAILY [facility] Last Admin: 04/07/18 10:35 Dose: 40 mg Hydrocortisone (Cortizone 2.5% Cream) 1 applic TOP BID [facility] Last Admin: 04/07/18 17:39 Dose: 1 applic Insulin Human Lispro (Humalog High) 0 units SC ACHS [facility] PRN Reason: Protocol Last Admin: 04/07/18 21:18 Dose: Not Given Letrozole (Femara) 2.5 mg PO DAILY [facility] Last Admin: 04/07/18 10:50 Dose: 2.5 mg Nadolol (Corgard) 20 mg PO BID [facility] Last Admin: 04/07/18 17:36 Dose: 20 mg Ondansetron HCl (Zofran Inj) 4 mg IVP Q6H PRN PRN Reason: Nausea/Vomiting Spironolactone (Aldactone) 50 mg PO BID [facility] Last Admin: 04/07/18 17:37 Dose: 50 mg Sucralfate (Carafate Oral Susp) 1 gm PO QID [facility] Last Admin: 04/07/18 21:13 Dose: 1 gm Tramadol HCl (Ultram) 50 mg PO TID PRN PRN Reason: Pain, moderate (4-7) Last Admin: 04/07/18 16:42 Dose: 50 mg - Labs Labs: 04/07/18 08:50 04/04/18 08:00 PT 15.4 SECONDS (9.4-12.5) H 04/01/18 06:00 INR 1.33 (0.93-1.08) H 04/01/18 06:00 APTT 32.4 Seconds (25.1-36.5) 04/01/18 06:00 - Constitutional Appears: Chronically Ill - Head Exam Head Exam: NORMAL INSPECTION - ENT Exam ENT Exam: Mucous Membranes Moist - Neck Exam Neck Exam: absent: Lymphadenopathy, Meningismus - Respiratory Exam Respiratory Exam: Decreased Breath Sounds - Cardiovascular Exam Cardiovascular Exam: +S1, +S2 - GI/Abdominal Exam GI & Abdominal Exam: Soft. absent: Tenderness Assessment and Plan - Assessment and Plan (Free Text) Plan: Assessment Sepsis R/O spontaneous bacterial peritonitis S/P paracentesis (ascitic fluid cx is negative but it was taken while patient is on antibiotics) Hepatitis C with liver cirrhosis PUD GERD history of ESBL E. coli pyelonephritis Plan will continue weekly prophylactic Augmentin for SBP prophylaxis overall prognosis is poor
--- NOTE | 2018-04-08 14:00 | CP.PCM.PN ---
<Deuce Valladares - Last Filed: 04/08/18 13:50> Subjective - Date & Time of Evaluation Date of Evaluation: 04/08/18 Time of Evaluation: 08:30 - Subjective Subjective: GI Progress Note for Dr. Ge Valladares, PGY-3 IM Patient seen ambulating on the floor. No further bleeding episodes reported by patient or nursing. S/p paracentesis of 7500cc straw colored fluid yesterday, AND did get Aspira cath yesterday. Reports abdominal discomfort improved, ambulating without issue. Objective - Vital Signs/Intake and Output Vital Signs (last 24 hours): Temp Pulse Resp BP Pulse Ox 97.9 F 60 18 110/62 99 04/08/18 06:00 04/08/18 06:00 04/08/18 06:00 04/08/18 10:33 04/08/18 06:00 Intake and Output: 04/08/18 04/08/18 06:59 18:59 Intake Total 650 Balance 650 - Medications Medications: Current Medications Acetaminophen (Tylenol 325mg Tab) 325 mg PO Q6H PRN PRN Reason: Pain, Mild (1-3) Last Admin: 04/03/18 01:32 Dose: 325 mg Amoxicillin/Clavulanate Potassium (Augmentin 875 Mg-125 Mg Tab) 1 tab PO MON [facility] PRN Reason: Protocol Amylase (Pancrease 83871 U-5000 [id number] U) 5,000 unit PO AC [facility] Last Admin: 04/08/18 10:33 Dose: 5,000 unit Apixaban (Eliquis) 2.5 mg PO BID [facility] PRN Reason: Protocol Last Admin: 04/08/18 10:33 Dose: 2.5 mg Furosemide (Lasix) 40 mg IVP DAILY [facility] Last Admin: 04/08/18 10:32 Dose: 40 mg Hydrocortisone (Cortizone 2.5% Cream) 1 applic TOP BID [facility] Last Admin: 04/08/18 10:36 Dose: 1 applic Insulin Human Lispro (Humalog High) 0 units SC ACHS [facility] PRN Reason: Protocol Last Admin: 04/08/18 08:00 Dose: 4 units Letrozole (Femara) 2.5 mg PO DAILY [facility] Last Admin: 04/07/18 10:50 Dose: 2.5 mg Nadolol (Corgard) 20 mg PO BID [facility] Last Admin: 04/08/18 10:33 Dose: 20 mg Ondansetron HCl (Zofran Inj) 4 mg IVP Q6H PRN PRN Reason: Nausea/Vomiting Spironolactone (Aldactone) 50 mg PO BID [facility] Last Admin: 04/08/18 10:33 Dose: 50 mg Sucralfate (Carafate Oral Susp) 1 gm PO QID [facility] Last Admin: 04/08/18 10:33 Dose: 1 gm Tramadol HCl (Ultram) 50 mg PO TID PRN PRN Reason: Pain, moderate (4-7) Last Admin: 04/07/18 23:35 Dose: 50 mg - Labs Labs: 04/07/18 08:50 04/04/18 08:00 PT 15.4 SECONDS (9.4-12.5) H 04/01/18 06:00 INR 1.33 (0.93-1.08) H 04/01/18 06:00 APTT 32.4 Seconds (25.1-36.5) 04/01/18 06:00 - Additional Findings Additional findings: - Constitutional Appears: Non-toxic, No Acute Distress - Head Exam Head Exam: ATRAUMATIC, NORMAL INSPECTION, NORMOCEPHALIC - Eye Exam Eye Exam: EOMI, Normal appearance. absent: Conjunctival injection, Scleral icterus Pupil Exam: absent: Fixed, Irregular - ENT Exam ENT Exam: Mucous Membranes Moist - Neck Exam Neck exam: Positive for: Normal Inspection - Respiratory Exam Respiratory Exam: Clear to Auscultation Bilateral, NORMAL BREATHING PATTERN. absent: Accessory Muscle Use, Chest Wall Tenderness, Decreased Breath Sounds, Rales, Rhonchi, Wheezes, Respiratory Distress, Stridor - Cardiovascular Exam Cardiovascular Exam: RRR, +S1, +S2. absent: Bradycardia, Tachycardia, Irregular Rhythm, JVD, +S4 - GI/Abdominal Exam less distended abdomen, soft no tenderness/discomfort on palpation - Extremities Exam Extremities exam: Positive for: pedal edema (+1 pitting edema in bilateral LE from ankles to bottom 2/3rd of shins). Negative for: calf tenderness, joint swelling, tenderness - Neurological Exam awake and alert, following all commands appropriately, moving all extremities spontaneously, ambulating well in hallways with PT - Psychiatric Exam Psychiatric exam: Normal Affect, Normal Mood - Skin Skin Exam: Dry, Intact, Normal Color, Warm Assessment and Plan - Assessment and Plan (Free Text) Assessment: This is a 72 yo F with extensive PMH, including Cirrhosis (suspected 2/2 Hep C) with recurrent ascites, chronic AFib on Eliquis, CAD s/p stent, HTN, DM, PUD with hx bleeding ulcer, CKD, and Breast Ca s/p partial resection and chemo, and anemia who presents with complaint of worsening abdominal pain, febrile sensation. GI was consulted for symptoms highly concerning for SBP, however ascites tap not suggestive of SBP. S/p repeat paracentesis and Aspira cath placement. Plan: Cirrhosis (suspected 2/2 Hep C) with recurrent ascites, bi-weekly paracenteses; s/p repeat paracentesis chronic AFib on Eliquis DM PUD with hx bleeding ulcer CKD Breast Ca s/p partial resection and chemo Thrombocytopenia Suspected SBP, possible sepsis Rectal bleeding - resolved -Story and symptoms highly concerning for SBP, s/p 4 days of IV Merrem and 6 days of PO Augmentin, as per ID once weekly Augmentin for SBP ppx -Ascites tap not suggestive of SBP, but obtained after already on several days IV abx, so may not be reliable -remains afebrile -s/p paracentesis (7500cc removed) and Aspira cath placed -increased risk for infections 2/2 aspira cath, stressed importance of regular follow up with her outpatient providers -continue albumin replacement for paracentesis volume > 5L -Hep C PCR positive, AFP wnl -Hold further tylenol due to cirrhosis, use active cooling measures as needed -continue Pancreatitic enzyme supplementation, 5000 units with meals; can taper down as tolerated -no further reported rectal bleeding as per pt and nursing, remains hemodynamically stable and no appreciable drops in Hgb witnessed, defer to PMD for restarting Eliquis -Strongly encouraged patient to follow up with her outpatient Heme-onc and outpatient GI after discharge to review all records, and for improved continuity of care Patient seen, reviewed, and discussed with attending, Dr. Carolina <Jared Carolina V - Last Filed: 04/09/18 00:26> Objective - Vital Signs/Intake and Output Vital Signs (last 24 hours): Temp Pulse Resp BP Pulse Ox 97.7 F 56 L 20 106/59 L 100 04/08/18 14:00 04/08/18 14:00 04/08/18 14:00 04/08/18 17:41 04/08/18 14:00 - Labs Labs: 04/07/18 08:50 04/04/18 08:00 PT 15.4 SECONDS (9.4-12.5) H 04/01/18 06:00 INR 1.33 (0.93-1.08) H 04/01/18 06:00 APTT 32.4 Seconds (25.1-36.5) 04/01/18 06:00 Attending/Attestation - Attestation I have personally seen and examined this patient.: Yes I have fully participated in the care of the patient.: Yes I have reviewed all pertinent clinical information, including history, physical exam and plan: Yes Notes (Text): This is an addendum to GI progress report dictated by the Mine Motor Engineer.The patient was seen and examined earlier. Medical records, lab studies, imagings were reviewed. Last 24 hours events reviewed. Agreed with the above treatment plan as outlined in Mine Motor Engineer 's notes the with the addition of the following 04/09/18 00:26
[2018-04-08 17:48] VITALS: BP 106/59
[2018-04-08 18:27] VITALS: PULSE 56; RESP 20; TEMP 97.7; O2SAT 100
--- NOTE | 2018-04-09 09:17 | DS ---
HISTORY OF PRESENT ILLNESS: Patient is 72 years old, seen and examined, had paracentesis done and had Aspira tunneled catheter placed yesterday and had 7500 mL fluid removed. PHYSICAL EXAMINATION: GENERAL: She is awake, alert, oriented. Complains of soreness at the site of catheter. VITAL SIGNS: She is afebrile. Pulse 66, respirations 18, blood pressure 110/62. LUNGS: Bilateral fair airflow, decreased at bases. HEART: S1, S2, audible, irregular rate control. ABDOMEN: Soft. Slight palpable discomfort. NEUROLOGIC: She is awake and alert, able to communicate. EXTREMITIES: Bilateral leg, no edema. LABORATORY DATA: WBC 5.2, hemoglobin 10, hematocrit 30, platelets of 72,000. Chemistries, blood sugar is 302. Stool for Hemoccult is positive. ASSESSMENT: 1. Cirrhosis of liver, multifactorial, partly due to cardiac stenosis and history of hepatitis C. 2. Chronic atrial fibrillation. 3. Coronary artery disease, status post angioplasty. 4. Cirrhotic ascites, status post multiple paracenteses. So recently spoke to patient about placing tunneled catheter, she agreed. 5. Thrombocytopenia. 6. Insulin dependent diabetes. PLAN: Patient is being discharged home today. She will resume her Eliquis. She is given prescription for rolling walker. Infectious Disease recommendation noted and appreciated. Patient is being discharged on Augmentin one tab weekly and will continue on spironolactone, Lasix, nadolol and she will resume Eliquis, Humira and she will resume her dose of insulin and administrator social welfare will make arrangement for [facility] visiting nurses educate her how to remove 1500 mL of the fluid twice a week and will follow her up as outpatient. Wilda Saha MD
[2018-04-11] MEDS ORDERED: Amoxicillin-Clav 875-125 mg Tab PO SCH (10:00)
== END 2018-04-08 19:05 | disposition home or self-care (01) | DRG 433 ==
LOC: ED 16:24 → ERH 21:25 → 2RSO 23:21 → 5RNO 04-01 09:18
PROVIDERS: ADMIT Internal Medicine; ATTEND Internal Medicine
PROC: BW40ZZZ Ultrasonography of Abdomen (ICD-10-PCS; 2018-04-01)
PROC: 0W9G3ZZ Drainage of Peritoneal Cavity, Percutaneous Approach (ICD-10-PCS; principal; 2018-04-01 16:00)
PROC: 0D9W30Z Drainage of Peritoneum with Drainage Device, Percutaneous Approach (ICD-10-PCS; 2018-04-07)
PROC: BW40ZZZ Ultrasonography of Abdomen (ICD-10-PCS; 2018-04-07)
PROC: BW111ZZ Fluoroscopy of Abdomen and Pelvis using Low Osmolar Contrast (ICD-10-PCS; 2018-04-07)
DX: K74.60 Unspecified cirrhosis of liver (principal); R18.8 Other ascites; D61.818 Other pancytopenia; D68.4 Acquired coagulation factor deficiency; D69.3 Immune thrombocytopenic purpura; I85.00 Esophageal varices without bleeding; K76.6 Portal hypertension; K31.89 Other diseases of stomach and duodenum; I25.10 Atherosclerotic heart disease of native coronary artery without angina pectoris; I48.2 Chronic atrial fibrillation; B19.20 Unspecified viral hepatitis C without hepatic coma; B96.89 Other specified bacterial agents as the cause of diseases classified elsewhere; Z85.3 Personal history of malignant neoplasm of breast; Z90.11 Acquired absence of right breast and nipple; D49.3 Neoplasm of unspecified behavior of breast; D72.820 Lymphocytosis (symptomatic); E11.22 Type 2 diabetes mellitus with diabetic chronic kidney disease; E78.5 Hyperlipidemia, unspecified; H40.9 Unspecified glaucoma; I12.9 Hypertensive chronic kidney disease with stage 1 through stage 4 chronic kidney disease, or unspecified chronic kidney disease; I86.8 Varicose veins of other specified sites; K21.9 Gastro-esophageal reflux disease without esophagitis; K27.9 Peptic ulcer, site unspecified, unspecified as acute or chronic, without hemorrhage or perforation; K52.9 Noninfective gastroenteritis and colitis, unspecified; K76.1 Chronic passive congestion of liver; N18.9 Chronic kidney disease, unspecified; Z79.01 Long term (current) use of anticoagulants; Z79.4 Long term (current) use of insulin; Z79.899 Other long term (current) drug therapy; Z86.010 Personal history of colon polyps; Z86.19 Personal history of other infectious and parasitic diseases; Z87.11 Personal history of peptic ulcer disease; Z87.440 Personal history of urinary (tract) infections; Z87.891 Personal history of nicotine dependence; Z88.1 Allergy status to other antibiotic agents; Z88.2 Allergy status to sulfonamides; Z90.49 Acquired absence of other specified parts of digestive tract; Z90.710 Acquired absence of both cervix and uterus; Z95.5 Presence of coronary angioplasty implant and graft; Z92.21 Personal history of antineoplastic chemotherapy

== ENCOUNTER 2018-08-10 17:34 | Inpatient (IN) | payer MEDICARE ==
[2018-08-10 18:06] VITALS: BMI 24.7
[2018-08-10] MEDS ORDERED: Sodium Chloride 0.9% 1,000 ML IV STA (18:08)
--- NOTE | 2018-08-10 18:13 | ED PDOC ---
Arrival/HPI - General Chief Complaint: Weakness/Neurological Deficit Historian: Patient - History of Present Illness Narrative History of Present Illness (Text): 08/10/18 18:09 73 yo with h/o Chronic Afib (on Eliquis), HTN, Cirrhosis, Thrombocytopenia, DM, Ascites (with drain, by Kenny Munoz, ~ March 2018), Breast CA (right mastectomy, last radiation "last year", chemo monthly and due "July", presents to the ED c/o weakness x 1 month. This was been progressively getting worse. She's not eating well and having trouble sleeping. She feels disoriented and unstable to walk at times. She's also having new back pain x 2weeks located in her lower back. Tingling in both of her feet. No incontinence. + foul urine smell, + loose stools. No unilateral weakness. PMD: Dr. Saha Past Medical History - Provider Review Nursing Documentation Reviewed: Yes - Infectious Disease Hx of Infectious Diseases: None - Tetanus Immunization Tetanus Immunization: Unknown - Cardiac Hx Cardiac Disorders: Yes Hx Hypertension: Yes - Pulmonary Hx Respiratory Disorders: No (denies) - Neurological Hx Neurological Disorder: No - HEENT Hx HEENT Disorder: Yes (WEARS RX GLASSES) Hx Cataracts: Yes (B/L SX) Hx Glaucoma: Yes (B/L SX) - Renal Hx Renal Disorder: No - Endocrine/Metabolic Hx Diabetes Mellitus Type 2: Yes (dx 8 yrs ago) - Hematological/Oncological Hx Blood Disorders: Yes Hx Anemia: Yes Hx Cancer: Yes (breast) Hx Chemotherapy: Yes Hx Cirrhosis: Yes (ASCITIS) Hx Hepatitis C: Yes (from blood transfusion) - Integumentary Hx Dermatological Disorder: No - Musculoskeletal/Rheumatological Hx Arthritis: Yes (knees) - Gastrointestinal Hx Gastrointestinal Disorders: Yes Hx Gall Bladder Disease: Yes Hx Gastroesophageal Reflux: Yes Hx Liver Failure: Yes - Genitourinary/Gynecological Hx Genitourinary Disorders: Yes Hx Urinary Tract Infection: Yes - Psychiatric Hx Psychophysiologic Disorder: Yes (INSOMNIA) Hx Depression: No Hx Emotional Abuse: No Hx Physical Abuse: No Hx Substance Use: No - Surgical History Hx Appendectomy: Yes Hx Cardiac Catheterization: Yes (2011) Hx Cholecystectomy: Yes Hx Coronary Stent: Yes (2011) Hx Hysterectomy: Yes Hx Mastectomy: Yes (RIGHT) Hx Orthopedic Surgery: No - Anesthesia Hx Anesthesia: Yes Hx Anesthesia Reactions: No Hx Malignant Hyperthermia: No - Suicidal Assessment Feels Threatened In Home Enviroment: No Family/Social History - Physician Review Nursing Documentation Reviewed: Yes Family/Social History: No Known Family HX Smoking Status: Never Smoked Hx Alcohol Use: No Hx Substance Use: No Hx Substance Use Treatment: No Allergies/Home Meds Allergies/Adverse Reactions: Allergies ciprofloxacin Allergy (Severe, Verified 08/10/18 18:06) RASH nitrofurantoin Allergy (Severe, Verified 08/10/18 18:06) RASH Sulfa (Sulfonamide Antibiotics) Allergy (Severe, Verified 08/10/18 18:06) RASH Home Medications: Home Meds Medication Instructions Recorded Confirmed Insulin Detemir [Levemir] 20 unit SC DAILY 09/27/13 08/10/18 Apixaban [Eliquis] 5 mg PO DAILY 01/08/15 08/10/18 Ramipril [Altace] 10 mg PO DAILY 01/08/15 08/10/18 Letrozole [Femara] 2.5 mg PO DAILY 02/27/16 08/10/18 Insulin Aspart, Recombinant 10 units SUBCUT AC 08/03/16 08/10/18 [Novolog] Nadolol [Corgard] 20 mg PO DAILY 08/03/16 08/10/18 Lipase/Protease/Amylase [Pancreaze 1 each PO TID 08/10/18 08/10/18 4,200 Unit Cap] Sucralfate [Carafate] 1 gm PO TID 08/10/18 08/10/18 Review of Systems - Physician Review All systems were reviewed & negative as marked: Yes - Review of Systems Constitutional: Normal Eyes: Normal ENT: Normal Respiratory: Normal Cardiovascular: Normal Gastrointestinal: Normal. absent: Abdominal Pain Genitourinary Female: Normal Musculoskeletal: Back Pain. absent: Neck Pain, Joint Swelling, Myalgias Skin: Normal Neurological: Normal. absent: Headache, Focal Weakness, Speech Changes, Facial Droop Endocrine: Normal Hemo/Lymphatic: Normal Psychiatric: Normal Physical Exam Vital Signs Reviewed: Yes Temperature: Afebrile Blood Pressure: Normal Pulse: Regular Respiratory Rate: Normal Appearance: Positive for: Well-Appearing, Non-Toxic, Comfortable Pain Distress: None Mental Status: Positive for: Alert and Oriented X 3 - Systems Exam Head: Present: Atraumatic, Normocephalic Pupils: Present: PERRL Extroacular Muscles: Present: EOMI Conjunctiva: Present: Normal Mouth: Present: Moist Mucous Membranes Neck: Present: Normal Range of Motion Respiratory/Chest: Present: Clear to Auscultation, Good Air Exchange. No: Respiratory Distress, Accessory Muscle Use Cardiovascular: Present: Regular Rate and Rhythm, Normal S1, S2. No: Murmurs Abdomen: Present: Other (drain to mid abdomen with dressing that is c/d/i). No: Tenderness, Distention, Peritoneal Signs Back: Present: Normal Inspection, Paraspinal Tenderness (lower lumbar). No: CVA Tenderness, Midline Tenderness Upper Extremity: Present: Normal Inspection. No: Cyanosis, Edema Lower Extremity: Present: Normal Inspection. No: Edema Neurological: Present: GCS=15, CN II-XII Intact, Speech Normal, Motor Func Grossly Intact, Norm Deep Tendon Reflexes Skin: Present: Warm, Dry, Normal Color. No: Rashes Psychiatric: Present: Alert, Oriented x 3, Normal Insight, Normal Concentration Medical Decision Making ED Course and Treatment: 08/10/18 18:15 73 yo female with weakness, feeling of intermittent disorientation, foul odorous urine, mild diarrhea and low back pain. DDx: Hyperglycemia r/o DKA, Weakness due to dehydration vs electrolyte imbalance; r/o UTI; Back pain r/o Mass -- Labs -- IVF -- CT Head, CT Lumbar -- Finger stick is elevated - IVF ordered -- Close monitoring 08/10/18 18:22 EKG: Afib at [address] elevations, TWI III and avF Signed out to Dr. Rodriguez to f/u Labs, UA, CT, reevaluate and disposition. - Critical Care Critical Care Minutes: 30 minutes - Lab Interpretations Lab Results: Lab Results 08/10/18 17:58: POC Glucose (mg/dL) 435 H* - RAD Interpretation Radiology Orders: 08/10/18 18:07 CHEST PORTABLE [RAD] Stat Disposition/Present on Arrival - Present on Arrival Any Indicators Present on Arrival: No History of DVT/PE: No History of Uncontrolled Diabetes: No Urinary Catheter: No History of Decub. Ulcer: No History Surgical Site Infection Following: None - Disposition Have Diagnosis and Disposition been Completed?: No Diagnosis: Weakness Disposition Time: 18:17 Condition: FAIR Discharge Instructions (ExitCare): Weakness (ED) Forms: [employer] ([place])
--- NOTE | 2018-08-10 18:43 | RAD ---
Date of service: 08/10/2018 HISTORY: Sepsis Patient COMPARISON: 03/29/2018 FINDINGS: LUNGS: The lungs are well inflated and clear. PLEURA: No pleural effusions or pneumothorax. CARDIOVASCULAR: The heart is normal in size. No aortic atherosclerotic calcification present. OSSEOUS STRUCTURES: Within normal limits for the patient's age. VISUALIZED UPPER ABDOMEN: Normal. OTHER FINDINGS: There are multiple surgical clips in the right axilla. IMPRESSION: No active pulmonary disease.
--- NOTE | 2018-08-10 19:01 | CARD ---
APPROVED REPORT Date of service: 08/10/2018 EKG Measurement Heart [id number] <Conclusion> Atrial fibrillation Left axis deviation Right bundle branch block Left anterior fascicular block Poor R wave progression Abnormal ECG
[2018-08-10 19:20] LABS: BASO # 0.02 K/mm3 (0.0-2.0); BASO % 0.4 % (0.0-3.0); EOS # 0.1 (0.0-0.7); EOS % 2.5 % (1.5-5.0); GRAN # 4.19 (1.4-6.5); GRAN % 81.1 % (50.0-68.0); HEMOGLOBIN 10.9 g/dL (12.0-16.0); LYMPH # 0.6 (1.2-3.4); LYMPH % 11.2 % (22.0-35.0); MEAN CELL VOLUME 88.2 fl (80.0-105.0); MEAN CORPUSCULAR HEMOGLOBIN 28.6 pg (25.0-35.0); MEAN CORPUSCULAR HGB CONC 32.4 g/dl (31.0-37.0); MEAN PLATELET VOLUME 9.5 fl (7.0-11.0); MONO # 0.3 (0.1-0.6); MONO % 4.8 % (1.0-6.0); RBC 3.81 10^6/uL (3.5-6.1); RED CELL DISTRIBUTION WIDTH 15.4 % (11.5-14.5); WHITE BLOOD COUNT 5.2 10^3/uL (4.5-11.0)
[2018-08-10 19:21] LABS: VENOUS BLOOD GAS BASE EXCESS -2.4 mmol/L (0.0-2.0); VENOUS BLOOD GAS PO2 111 mm/Hg (30-55); VENOUS BLOOD PH 7.33 (7.32-7.43)
[2018-08-10 19:27] LABS: PLATELET COUNT 49 10^3/uL (120.0-450.0)
[2018-08-10 19:29] LABS: INR 1.16; PARTIAL THROMBOPLASTIN TIME 31.2 Seconds (25.1-36.5); PROTHROMBIN TIME 13.3 SECONDS (9.4-12.5)
--- NOTE | 2018-08-10 20:02 | ED PDOC ---
Physical Exam Vital Signs Temp Pulse Resp BP Pulse Ox 08/10/18 18:21 98.0 F 70 18 123/75 100 Medical Decision Making ED Course and Treatment: 08/10/18 19:00 Case endorsed to me by Dr. Ford, pending labs, UA, CT, re-assessment, and disposition. Pt, whose past medical history includes chronic atrial fibrillation, hypertension, cirrhosis, diabetes, ascites, and breast cancer, presented for progressively worsening weakness for 1 month, diarrhea, lower back pain, and foul-smelling urine. 08/10/18 20:00 Reviewed radiology, CT Head: BRAIN There is a small low density infarct within the deep white matter in the left parietal region. There is no acute hemorrhage. VENTRICLES: No hydrocephalus. ORBITS: The orbits are unremarkable. SINUSES AND MASTOIDS: The paranasal sinuses and mastoid air cells are clear. BONES: No fracture. SOFT TISSUES: Unremarkable. IMPRESSION: Small low density infarct in the deep white matter in the left parietal region. Close clinical correlation and follow-up study recommended. Electronically signed on Aug 10, 2018 7:50:13 PM EST by: Brain Wilkins M.D., Certified by [employer]BR, Diagnostic Radiology CT Lumbar Spine: ALIGNMENT: Bony alignment is anatomic. DISCS/DEGENERATIVE CHANGES: T12/L1: No significant central canal or neural foraminal stenosis. L1/L2: No significant central canal or neural foraminal stenosis. L2/L3: No significant central canal or neural foraminal stenosis. L3/4: No significant central canal or neural foraminal stenosis. L4/5: No significant central canal or neural foraminal stenosis. L5/S1: No significant central canal or neural foraminal stenosis. BONES: There is diffuse moderately advanced hypertrophic and degenerative change. Posterior bulging disks are seen at multiple levels throughout the lumbar spine. There is mild compression deformity and Schmorl's node at the superior endplate of the L3 vertebral body. Advanced osteoarthritic changes within the apophyseal joints. SOFT TISSUES: The soft tissues are unremarkable. MISCELLANEOUS: No abnormal contrast enhancement. IMPRESSION: Moderately advanced and diffuse hypertrophic and degenerative changes. Bulging posterior disc multiple levels lumbar spine. Mild compression deformity and Schmorl's node at the central superior endplate of the L3 vertebral body. Advanced osteoarthritic change within the apophyseal joints. Clinical correlation advised. Electronically signed on Aug 10, 2018 8:01:00 PM EST by: Brain Wilkins M.D., Certified by ABR, Diagnostic Radiology 08/11/18 00:[address] Saha, who is aware and agrees with plan. Accepts pt in to her service. Pt will go be admitted to [facility] observation for dehydration, AMS, and UTI. - Lab Interpretations Lab Results: 08/10/18 19:05 Lab Results 08/10/18 19:11: pO2 111 H, VBG pH 7.33, VBG pCO2 45.0, VBG HCO3 23.7, VBG Total CO2 25.1, VBG O2 Sat (Calc) 98.2 H, VBG Base Excess -2.4 L, VBG Potassium 5.0, Sodium 133.0, Chloride 99.0, Glucose 494 H* D, Lactate 3.4 H, FiO2 21.0, Venous Blood Potassium 5.0 08/10/18 19:05: PT 13.3 H, INR 1.16, APTT 31.2 08/10/18 19:05: WBC 5.2, RBC 3.81, Hgb 10.9 L, Hct 33.6 L, MCV 88.2, MCH 28.6, MCHC 32.4, RDW 15.4 H, Plt Count 49 L*, MPV 9.5, Gran % 81.1 H, Lymph % (Auto) 11.2 L, Upton % (Auto) 4.8, Eos % (Auto) 2.5, Baso % (Auto) 0.4, Gran # 4.19, Lymph # (Auto) 0.6 L, Upton # (Auto) 0.3, Eos # (Auto) 0.1, Baso # (Auto) 0.02 08/10/18 17:58: POC Glucose (mg/dL) 435 H* I have reviewed the lab results: Yes - RAD Interpretation Radiology Orders: 08/10/18 18:07 CHEST PORTABLE [RAD] Stat 08/10/18 18:16 HEAD W/O CONTRAST [CT] Stat LUMBAR SPINE W/O CONTRAST [CT] Stat Vocational Guidance Counselor: Radiologist - Medication Orders Current Medication Orders: Discontinued Medications Sodium Chloride (Sodium Chloride 0.9%) 1,000 mls @ 999 mls/hr IV .Q1H1M STA Stop: 08/10/18 19:08 Last Admin: 08/10/18 19:30 Dose: 999 mls/hr eMAR Start Stop Document 08/10/18 19:30 TEE (Rec: 08/10/18 19:57 RG [id number]) Intravenous Solution Start Date 08/10/18 Start Time 19:30 Disposition/Present on Arrival - Present on Arrival Any Indicators Present on Arrival: No History of DVT/PE: No History of Uncontrolled Diabetes: No Urinary Catheter: No History of Decub. Ulcer: No History Surgical Site Infection Following: None - Disposition Have Diagnosis and Disposition been Completed?: Yes Diagnosis: Urinary tract infection, Dehydration, Altered mental status, Diabetes mellitus Disposition: HOSPITALIZED Disposition Time: 00:28 Patient Problems: Current Active Problems Problem Status Onset Weakness Acute Condition: STABLE Discharge Instructions (ExitCare): Weakness (ED) Referrals: Wilda Saha MD [Primary Care Provider] - Follow up with primary Forms: [employer] (Fijian)
[2018-08-10 20:44] LABS: URINE BILIRUBIN NEGATIVE (NEGATIVE); URINE BLOOD SMALL (NEGATIVE); URINE GLUCOSE (UA) >=1000 mg/dL (NEGATIVE); URINE LEUKOCYTE ESTERASE SMALL Leu/uL (NEGATIVE); URINE PROTEIN NEGATIVE mg/dL (<30 mg/dL); URINE UROBILINOGEN 0.2 E.U./dL (<1 E.U./dL)
[2018-08-10 20:47] LABS: URINE APPEARANCE SL CLOUDY (CLEAR); URINE COLOR YELLOW (YELLOW)
[2018-08-10 21:15] LABS: URINE BACTERIA MOD (NEG); URINE WBC TNTC /hpf (0-6)
[2018-08-10 22:49] LABS: VENOUS BLOOD GAS BASE EXCESS 0.5 mmol/L (0.0-2.0); VENOUS BLOOD GAS PO2 24 mm/Hg (30-55); VENOUS BLOOD PH 7.38 (7.32-7.43)
[2018-08-10 23:21] LABS: ALB/GLOB RATIO 0.7 (1.1-1.8); ALBUMIN 2.5 g/dL (3.0-4.8); CALCIUM 7.8 mg/dL (8.4-10.5)
[2018-08-11] MEDS ORDERED: cefTRIAXone 1 gm 1 GM/100 ML BAG IV STA (00:06)
[2018-08-11] MEDS: Insulin Lispro 1 UNITS/0.01 ML SC SCH ×3 (08:10→16:48)
[2018-08-11] MEDS: Insulin Reg-LOW-Coverage SC SCH ×4 (08:10→21:27)
--- NOTE | 2018-08-11 08:30 | CT ---
Date of service: 08/10/2018 PROCEDURE: CT HEAD WITHOUT CONTRAST. HISTORY: disorientation h/o breast ca COMPARISON: Noncontrast head CT 01/21/2014. TECHNIQUE: Axial computed tomography images were obtained through the head/brain without intravenous contrast. Radiation dose: Total exam DLP = 804.62 mGy-cm. This CT exam was performed using one or more of the following dose reduction techniques: Automated exposure control, adjustment of the mA and/or kV according to patient size, and/or use of iterative reconstruction technique. FINDINGS: HEMORRHAGE: No intracranial hemorrhage. BRAIN: Good corticomedullary differentiation is seen. Reiterated diffuse cerebral atrophy and chronic microangiopathy. No suspicious extra-axial fluid collection is identified and the midline brain anatomy appears grossly nonfocal as imaged. No mass effect identified. VENTRICLES: Unremarkable. No hydrocephalus. CALVARIUM: Unremarkable. PARANASAL SINUSES: Unremarkable as visualized. No significant inflammatory changes. MASTOID AIR CELLS: Unremarkable as visualized. No inflammatory changes. OTHER FINDINGS: None. IMPRESSION: Stable, age-appropriate age related neuro degenerative changes are appreciated without acute intracranial findings at this time. Follow-up CT or MRI are available if clinically warranted.
--- NOTE | 2018-08-11 08:41 | CT ---
Date of service: 08/10/2018 PROCEDURE: CT Lumbar Spine without contrast HISTORY: new low back pain h/o breast ca COMPARISON: None available. TECHNIQUE: Axial computed tomography images were obtained of the lumbar spine without the use of intravenous contrast. Coronal and sagittal reformatted images were created and reviewed. Radiation dose: Total exam DLP = 1532.23 mGy-cm. This CT exam was performed using one or more of the following dose reduction techniques: Automated exposure control, adjustment of the mA and/or kV according to patient size, and/or use of iterative reconstruction technique. FINDINGS: VERTEBRAE: No destructive bony changes appreciated grossly. No acute fracture. Normal alignment. Schmorl's node has developed once again at the upper endplate of L3 not significantly changed compared to prior abdomen and pelvis CT 03/30/2018. No interval spondylolisthesis either. Multilevel facet joint degenerative arthropathy is reiterated with visualized prevertebral and paraspinal soft tissues are remarkable only for calcified atherosclerotic nonaneurysmal abdominal aortic changes. Incidental ascites is appreciated in the abdomen. DISCS/SPINAL CANAL/NEURAL FORAMINA: L1-2: A circumferential disc osteophyte complex appears mild without central canal stenosis resulting. Mild bilateral degenerative neural foraminal stenosis is identified. Bilateral facet joint arthropathy appears mild severity. L2-3: A circumferential disc osteophyte complex is moderate severity flattening the ventral thecal sac without causing significant central canal stenosis. [id number] bilateral facet joint arthropathy identified. Mild left and borderline right degenerative neural foraminal stenoses are identified. L3-4: A circumferential disc bulge combines with prominent facet joint degenerative arthropathy resulting in a mild central canal stenosis and mild degenerative bilateral neural foraminal stenoses. L4-5: A circumferential disc bulge is appreciated spine with moderate to severe facet joint degenerative changes resulting in borderline central canal stenosis and mild bilateral neural foraminal stenoses. L5-S1: Minimal disc bulging is appreciated circumferentially with prominent facet joint degenerative change but without significant central canal or neural foraminal stenosis resulting. No gross disc herniation appreciated throughout the examination though MRI is more sensitive in evaluation of intervertebral discs. OTHER FINDINGS: None. IMPRESSION: 1. No acute fracture or spondylolisthesis. No definite destructive bony lesion appreciable. 2. Multilevel degenerative disc disease and facet arthropathy are identified with variable multilevel neural foraminal stenoses and L3-4 mild central canal stenosis, borderline at L4-5. No gross disc herniation. MRI is available for follow-up if clinically warranted. 3. Incidental note is made of abdominal ascites. Preliminary report provided by [email or web address], 08/10/2018.
[2018-08-11] MEDS ORDERED: PROTEASE PO SCH (10:00)
[2018-08-11] MEDS ORDERED: LIPASE PO SCH (10:00)
[2018-08-11] MEDS ORDERED: AMYLASE PO SCH (10:00)
[2018-08-11] MEDS ORDERED: cefTRIAXone 1 gm 1 GM/100 ML BAG IVPB SCH (10:00)
[2018-08-11] MEDS: Insulin Detemir 100 units/ml Vial (Levemir) SC SCH (10:42)
[2018-08-11] MEDS: Meropenem IV 1 gm in NS 1 GM/50 ML BAG IVPB SCH ×2 (16:58→21:21)
[2018-08-11] MEDS: Amylase/Lipase/Protease 5,000 Units ECC PO SCH (16:59)
[2018-08-11] MEDS ORDERED: Amylase/Lipase/Protease 5,000 Units ECC PO SCH (18:00)
--- NOTE | 2018-08-11 18:31 | CON ---
DATE: 08/11/2018 The patient is seen earlier today in 575, bed 1. CHIEF COMPLAINT: Weakness and occasional back pain, days. HISTORY OF PRESENT ILLNESS: A 73-year-old female with end-stage liver disease, liver cirrhosis, hepatitis C, coronary artery disease, breast cancer, peptic ulcer disease, GI bleed, glaucoma, cataract, hypertension, atrial fibrillation, diabetes, anemia, ESBL E. coli urinary tract infection, pyelonephritis in the past, who is admitted with weakness, low-grade fevers, occasional dysuria, and frequency. No chest pain. REVIEW OF SYSTEMS: A 14-point review of systems is performed, and no nausea or vomiting now. PAST MEDICAL HISTORY: Significant for hepatitis C, coronary artery disease, atrial fibrillation, hypertension, diabetes, anemia, ESBL E. coli urinary tract infection, pyelonephritis, peptic ulcer disease, GI bleed, and end-stage liver disease and liver cirrhosis. PAST SURGICAL HISTORY: Cardiac catheter and stent placement, right mastectomy, cholecystectomy, and appendectomy. ALLERGIES: THE PATIENT IS ALLERGIC TO CIPRO, NITROFURANTOIN, AND SULFA. MEDICATIONS AT HOME: Reviewed. PHYSICAL EXAMINATION GENERAL: The patient is in bed. VITAL SIGNS: Temperature of 97, blood pressure is 96/50, respiratory rate of 20, heart rate of 67. HEENT: Unremarkable. NECK: Supple. LUNGS: Decreased breath sounds. HEART: Normal S1 and S2. ABDOMEN: Soft, nontender. There is no CVA tenderness. LABORATORY EXAMINATION: Reveals a white count of 5.2, hemoglobin of 10, platelets of 49. Coagulations noted. The patient's INR is 1.16. PT is 13. Chemistries are noted. Glucose is noted. Urinalysis, wbc's too numerous to count, moderate bacteria. Microbiology is pending. Prior microbiology is reviewed, include E. coli and Klebsiella urinary tract infection and multiple E. coli in the urine, one was ESBL. The patient had CT of the spine, which was reviewed; CAT scan of the head, which is noted; chest x-ray, which is negative. ER chart is reviewed. ASSESSMENT AND PLAN: This is a 73-year-old female with end-stage liver disease, liver cirrhosis, hepatitis C, coronary artery disease, peptic ulcer disease, atrial fibrillation, gastrointestinal disease, hypertension, cataract, diabetes, anemia, and extended-spectrum beta-lactamase Escherichia coli, now presenting with a urinary tract infection, possible pyelonephritis. We will treat with meropenem pending blood culture, urine culture, and discontinue ceftriaxone. We will make further recommendations upon availability of initial results and follow up closely with you. Minh Tran MD
--- NOTE | 2018-08-11 23:07 | HP ---
DATE OF EXAM: 08/11/2018 HISTORY OF PRESENT ILLNESS: The patient is 73-year-old seen in my office yesterday. She states she was having generalized weakness. She feels sleepy at times. Two to three days ago, while she was driving to restaurant with her granddaughter who told her that her driving was very erratic. She was going out of the david. Patient states she felt disoriented. She came to my office yesterday and I advised her to come to the emergency room to rule out hepatic encephalopathy versus CVA. She denies any fevers or chills. She does complain of decreased appetite. She also complained of strong odor in her urine. Denies any nausea or vomiting. Does complain of intermittent constipation. PAST MEDICAL HISTORY: Significant for; 1. Coronary artery disease status post angioplasty. 2. History of thrombocytopenia. 3. Hepatitis C. 4. History of CA of breast status post lumpectomy and currently getting ready to have chemo and radiation. Actually, she had chemo earlier this year and getting radiation for the lymph node that is still lighting up on CAT scan. 5. Insulin-dependent diabetes. 6. Hypertension. 7. Hyperlipidemia. 8. Chronic atrial fibrillation. ALLERGIES: SHE IS ALLERGIC TO CIPRO, NITROFURANTOIN,SULFA. MEDICATIONS AT HOME: She is on Carafate, spironolactone, ramipril, nadolol for cirrhosis of liver, and she is on pancreatic enzyme. She is on Femara, insulin 20 units daily and NovoLog 10 units before each meal and Eliquis 5 mg twice a day. SOCIAL HISTORY: Denies smoking, drinking alcohol. PHYSICAL EXAMINATION GENERAL: She is awake, alert, oriented, communicative. LABORATORY DATA: WBC is 5.2, hemoglobin 10.9, hematocrit 33.6, and platelets 49,000. PT 13.3. INR 1.16. Chemistry blood sugar is 318. Ammonia level is 40. Urine shows small leukocytes, numerous to count wbc's. DIAGNOSTIC DATA: She had lumbar CT scan done that shows no acute fracture. No destructive , multilevel degenerative disk disease and facet arthropathy. She has abdominal ascites. ASSESSMENT AND PLAN: 1. Altered mental status, rule out cerebrovascular accident. 2. Hepatic encephalopathy. 3. Cirrhosis of liver. 4. Hepatitis C. 5. Coronary artery disease. 6. Chronic atrial fibrillation. 7. Thrombocytopenia. PLAN: The patient is currently on meropenem. She is requesting something to sleep and calm down. I gave her 0.25 of Xanax at bedtime. I will order MRI of the brain to rule out CVA and monitor her CBC and CMP in the a.m. Awaiting neuro input. ID input noted, appreciative, started on meropenem. We will follow up blood culture and urine culture. Wilda Saha MD
--- NOTE | 2018-08-12 04:46 | CON ---
DATE OF CONSULTATION: 08/11/2018 HISTORY OF PRESENT ILLNESS: This is a 73-year-old white female with past medical history of hypertension, cirrhosis, thrombocytopenia, diabetes, ascites and breast CA, status post right mastectomy, and patient is having now radiation for the left, and has been not eating well and has trouble in sleeping. Patient is disoriented, confused. Called to evaluate the patient. Also, complained of a back pain, 2 weeks, and tingling in her both feet. PAST MEDICAL HISTORY: Diabetes, breast cancer, thrombocytopenia, hypertension, cirrhosis. ALLERGIES: TO CIPROFLOXACIN, NITROFURANTOIN, AND SULFA. HOME MEDICATIONS: Levemir, Eliquis, Altace, Corgard, and Carafate. REVIEW OF SYSTEMS: Ten-point review of systems was negative. PHYSICAL EXAMINATION: HEENT: Normocephalic, atraumatic. NECK: Supple. NEUROLOGIC: Awake, oriented to self. Cranial nerves II through XII were tested. Pupils reactive. EOM intact. Visual field full. No facial asymmetry. Tongue midline. Motor examination: Moves all the extremities spontaneously. Deep tendon reflexes 1+. Plantars downgoing. Sensory appears intact. Cerebellar gait, deferred. ASSESSMENT: A 73-year-old white female who came with weakness and feeling intermittently confused and also low back pain. CAT scan of the head was done,which was reported negative. CAT scan of the lumbosacral spine was also mild spinal stenosis. PLAN: Continue present management. Workup in progress. We will follow up. Fernando Rivero MD
[2018-08-12 08:01] LABS: BASO # 0.02 K/mm3 (0.0-2.0); BASO % 0.4 % (0.0-3.0); EOS # 0.2 (0.0-0.7); EOS % 4.8 % (1.5-5.0); GRAN # 3.5 (1.4-6.5); GRAN % 75.7 % (50.0-68.0); HEMOGLOBIN 10.8 g/dL (12.0-16.0); LYMPH # 0.5 (1.2-3.4); LYMPH % 11.3 % (22.0-35.0); MEAN CELL VOLUME 87.3 fl (80.0-105.0); MEAN CORPUSCULAR HEMOGLOBIN 28.6 pg (25.0-35.0); MEAN CORPUSCULAR HGB CONC 32.8 g/dl (31.0-37.0); MEAN PLATELET VOLUME 9.7 fl (7.0-11.0); MONO # 0.4 (0.1-0.6); MONO % 7.8 % (1.0-6.0); RBC 3.77 10^6/uL (3.5-6.1); RED CELL DISTRIBUTION WIDTH 15.4 % (11.5-14.5); WHITE BLOOD COUNT 4.6 10^3/uL (4.5-11.0)
[2018-08-12 08:09] LABS: ALB/GLOB RATIO 0.7 (1.1-1.8); ALBUMIN 2.5 g/dL (3.0-4.8)
[2018-08-12] MEDS: Insulin Lispro 1 UNITS/0.01 ML SC SCH ×3 (08:45→16:51)
[2018-08-12] MEDS: Insulin Reg-LOW-Coverage SC SCH ×3 (08:48→16:51)
[2018-08-12] MEDS: Amylase/Lipase/Protease 5,000 Units ECC PO SCH ×2 (10:25→17:36)
[2018-08-12] MEDS: Meropenem IV 1 gm in NS 1 GM/50 ML BAG IVPB SCH ×2 (10:30→21:54)
[2018-08-12] MEDS: Insulin Detemir 100 units/ml Vial (Levemir) SC SCH (10:31)
--- NOTE | 2018-08-12 10:38 | CP.PCM.PCO ---
Physician Communication Note - Physician Communication Note Physician Communication Note: ams sec to transient metabolic encephalopathy and has neuropathy. Dm contrl
[2018-08-12] MEDS ORDERED: Albumin Human 25% (12.5 gm/50 ml) IV ONE ×2 (12:38→12:45)
--- NOTE | 2018-08-12 14:33 | CP.PCM.PN ---
Subjective - Date & Time of Evaluation Date of Evaluation: 08/12/18 Time of Evaluation: 08:50 - Subjective Subjective: Comfortable, no fevers, still with some back pain. Objective - Vital Signs/Intake and Output Vital Signs (last 24 hours): Temp Pulse Resp BP Pulse Ox 97.3 F L 68 20 93/60 L 100 08/12/18 14:24 08/12/18 14:24 08/12/18 14:24 08/12/18 14:24 08/12/18 14:24 Intake and Output: 08/12/18 08/12/18 06:59 18:59 Intake Total 480 Balance 480 - Medications Medications: Current Medications Acetaminophen (Tylenol 325mg Tab) 650 mg PO Q6H PRN PRN Reason: Fever >100.4 F Last Admin: 08/12/18 08:50 Dose: 650 mg Alprazolam (Xanax) 0.25 mg PO HS SINAN; Protocol Stop: 08/18/18 22:01 Last Admin: 08/11/18 21:21 Dose: 0.25 mg Amylase (Pancrease 01278 U-5000 [id number] U) 1 unit PO TID [facility] Last Admin: 08/12/18 10:25 Dose: 1 unit Apixaban (Eliquis) 5 mg PO DAILY [facility]; Protocol Last Admin: 08/12/18 10:26 Dose: 5 mg Meropenem (Merrem Iv 1 Gm Premix) 1 gm in 50 mls @ 100 mls/hr IVPB Q12 [facility]; Protocol Stop: 08/20/18 15:16 Last Admin: 08/12/18 10:30 Dose: 100 mls/hr Insulin Detemir (Levemir) 20 unit SC DAILY [facility] Last Admin: 08/12/18 10:31 Dose: 20 units Insulin Human Lispro (Humalog) 10 units SC AC [facility] Last Admin: 08/12/18 11:42 Dose: 10 units Insulin Human Regular (Humulin R Low) 0 units SC ACHS [facility]; Protocol Last Admin: 08/12/18 11:32 Dose: 1 units Letrozole (Femara) 2.5 mg PO DAILY [facility] Last Admin: 08/11/18 09:18 Dose: 2.5 mg Nadolol (Corgard) 20 mg PO DAILY [facility] Last Admin: 08/12/18 10:26 Dose: 20 mg Ramipril (Altace) 2.5 mg PO DAILY [facility] Last Admin: 08/12/18 10:30 Dose: 2.5 mg Spironolactone (Aldactone) 50 mg PO BID [facility] Last Admin: 08/12/18 10:25 Dose: 50 mg - Labs Labs: 08/12/18 07:30 08/12/18 07:30 PT 13.3 SECONDS (9.4-12.5) H 08/10/18 19:05 INR 1.16 08/10/18 19:05 APTT 31.2 Seconds (25.1-36.5) 08/10/18 19:05 - Constitutional Appears: Chronically Ill - Head Exam Head Exam: NORMAL INSPECTION - Respiratory Exam Respiratory Exam: Decreased Breath Sounds - Cardiovascular Exam Cardiovascular Exam: +S1, +S2 - GI/Abdominal Exam GI & Abdominal Exam: Soft. absent: Tenderness Assessment and Plan - Assessment and Plan (Free Text) Plan: Assessment consider UTI with pyelonephritis history of Sepsis R/O spontaneous bacterial peritonitis S/P paracentesis Hepatitis C with liver cirrhosis PUD GERD history of ESBL E. coli pyelonephritis Plan will continue Merrem pending final blood and urine cx results overall prognosis is poor
--- NOTE | 2018-08-12 20:18 | PN ---
DATE: 08/12/2018 SUBJECTIVE: The patient is 73 years old. Seen and examined. Sitting in chair. Complaining of feeling extremely cold. Still has generalized weakness, difficulty walking. PHYSICAL EXAMINATION: GENERAL: She is awake, alert, oriented, and communicative. VITAL SIGNS: She is afebrile. Pulse 76, respirations 20, blood pressure 100/64. LUNGS: Bilateral fair airflow. No rhonchi or crackles. HEART: S1 and S2 audible. ABDOMEN: Soft, and nontender. No rebound. No guarding. Catheter in place and today is the day to have . We will make arrangements. EXTREMITIES: Bilateral leg, no edema. LABORATORY DATA: WBC 4.6, hemoglobin 10.8, hematocrit 32.9, platelets 51. Chemistries: Sodium 134, potassium 5.1, chloride 104, CO2 27, BUN 37, creatinine 1.4, blood sugar 183. Blood cultures are negative. Urine shows Gram-negative rods, sensitivity to follow. ASSESSMENT: 1. Altered mental status, secondary to urinary tract infection. 2. Cirrhosis of the liver. 3. Cirrhotic ascites. 4. Hypertension. 5. Hyperlipidemia. PLAN: We will drain her cirrhotic ascites. Continue her on IV antibiotics. Follow up electrolytes and CBC in a.m. and sensitivity will be back tomorrow. We will decide if we can send her home with p.o. antibiotics or if she needs IV for her UTI. Wilda Saha MD
[2018-08-13] MEDS: Insulin Reg-LOW-Coverage SC SCH ×4 (06:58→17:12)
[2018-08-13 07:44] LABS: ALB/GLOB RATIO 0.7 (1.1-1.8); ALBUMIN 2.2 g/dL (3.0-4.8); CALCIUM 7.7 mg/dL (8.4-10.5)
[2018-08-13] MEDS: Insulin Lispro 1 UNITS/0.01 ML SC SCH ×3 (08:19→17:15)
[2018-08-13] MEDS: Amylase/Lipase/Protease 5,000 Units ECC PO SCH ×3 (09:35→17:16)
[2018-08-13] MEDS: Meropenem IV 1 gm in NS 1 GM/50 ML BAG IVPB SCH ×2 (09:36→21:35)
[2018-08-13] MEDS: Insulin Detemir 100 units/ml Vial (Levemir) SC SCH (12:11)
--- NOTE | 2018-08-13 12:42 | CP.PCM.PN ---
Subjective - Date & Time of Evaluation Date of Evaluation: 08/13/18 Time of Evaluation: 08:30 - Subjective Subjective: Comfortable on a chair, no fevers, less back pain. Objective - Vital Signs/Intake and Output Vital Signs (last 24 hours): Temp Pulse Resp BP Pulse Ox 97.3 F L 68 20 93/60 L 100 08/12/18 14:24 08/12/18 14:24 08/12/18 14:24 08/12/18 14:24 08/12/18 14:24 Intake and Output: 08/12/18 08/12/18 06:59 18:59 Intake Total 480 Balance 480 - Medications Medications: Current Medications Acetaminophen (Tylenol 325mg Tab) 650 mg PO Q6H PRN PRN Reason: Fever >100.4 F Last Admin: 08/12/18 08:50 Dose: 650 mg Alprazolam (Xanax) 0.25 mg PO HS [facility]; Protocol Stop: 08/18/18 22:01 Last Admin: 08/11/18 21:21 Dose: 0.25 mg Amylase (Pancrease 50752 U-5000 U-[id number] U) 1 unit PO TID [facility] Last Admin: 08/12/18 10:25 Dose: 1 unit Apixaban (Eliquis) 5 mg PO DAILY [facility]; Protocol Last Admin: 08/12/18 10:26 Dose: 5 mg Meropenem (Merrem Iv 1 Gm Premix) 1 gm in 50 mls @ 100 mls/hr IVPB Q12 [facility]; Protocol Stop: 08/20/18 15:16 Last Admin: 08/12/18 10:30 Dose: 100 mls/hr Insulin Detemir (Levemir) 20 unit SC DAILY [facility] Last Admin: 08/12/18 10:31 Dose: 20 units Insulin Human Lispro (Humalog) 10 units SC AC [facility] Last Admin: 08/12/18 11:42 Dose: 10 units Insulin Human Regular (Humulin R Low) 0 units SC ACHS [facility]; Protocol Last Admin: 08/12/18 11:32 Dose: 1 units Letrozole (Femara) 2.5 mg PO DAILY [facility] Last Admin: 08/11/18 09:18 Dose: 2.5 mg Nadolol (Corgard) 20 mg PO DAILY [facility] Last Admin: 08/12/18 10:26 Dose: 20 mg Ramipril (Altace) 2.5 mg PO DAILY [facility] Last Admin: 08/12/18 10:30 Dose: 2.5 mg Spironolactone (Aldactone) 50 mg PO BID [facility] Last Admin: 08/12/18 10:25 Dose: 50 mg - Labs Labs: 08/12/18 07:30 08/12/18 07:30 PT 13.3 SECONDS (9.4-12.5) H 08/10/18 19:05 INR 1.16 08/10/18 19:05 APTT 31.2 Seconds (25.1-36.5) 08/10/18 19:05 - Constitutional Appears: Chronically Ill - Head Exam Head Exam: NORMAL INSPECTION - Respiratory Exam Respiratory Exam: Decreased Breath Sounds - Cardiovascular Exam Cardiovascular Exam: +S1, +S2 - GI/Abdominal Exam GI & Abdominal Exam: Soft. absent: Tenderness Assessment and Plan - Assessment and Plan (Free Text) Plan: Assessment consider UTI with pyelonephritis history of Sepsis R/O spontaneous bacterial peritonitis S/P paracentesis Hepatitis C with liver cirrhosis PUD GERD history of ESBL E. coli pyelonephritis Plan will continue Merrem day 3 pending final blood and urine cx results overall prognosis is poor
--- NOTE | 2018-08-13 17:33 | PN ---
DATE: 08/13/2018 SUBJECTIVE: The patient is 73 years old, seen and examined, sitting in chair, seems to be comfortable. Complained of generalized weakness. No allergy. Has difficulty walking. Gets short of breath when walking. PHYSICAL EXAMINATION: VITAL SIGNS: She is afebrile, pulse 66, respirations 18, blood pressure 92/54. LUNGS: Bilateral fair airflow. No rhonchi or crackle. HEART: S1 and S2 audible. Irregular, rate controlled. ABDOMEN: Soft, obese. Has 3 L of fluid drained by catheter. EXTREMITIES: Bilateral leg, +1 edema. LABORATORY EXAM: Sodium 132, potassium 5.2, chloride of 105, CO2 of 22, BUN 41, creatinine 1.1, blood sugar of 227, albumin is 2.2. Her urine cultures are positive for Proteus mirabilis sensitive to penicillin. ASSESSMENT: 1. Altered mental status. 2. Urosepsis. 3. Cirrhotic ascites. 4. Chronic atrial fibrillation. 5. Hypertension. 6. Insulin-dependent diabetes. 7. Deconditioning and difficulty walking. PLAN: We will continue her on current medication. Follow up her electrolyte. Follow up her CBC and CMP. Encourage ambulation. Physical therapy evaluation has been requested. We will reevaluate in the a.m. to make disposition plan. Wilda Saha MD
[2018-08-14 08:01] LABS: BASO # 0.03 K/mm3 (0.0-2.0); BASO % 0.5 % (0.0-3.0); EOS # 0.3 (0.0-0.7); EOS % 5.2 % (1.5-5.0); GRAN # 4.85 (1.4-6.5); GRAN % 74.5 % (50.0-68.0); HEMOGLOBIN 10.9 g/dL (12.0-16.0); LYMPH % 15.2 % (22.0-35.0); MEAN CELL VOLUME 86.9 fl (80.0-105.0); MEAN CORPUSCULAR HEMOGLOBIN 28.6 pg (25.0-35.0); MEAN CORPUSCULAR HGB CONC 32.9 g/dl (31.0-37.0); MEAN PLATELET VOLUME 9.4 fl (7.0-11.0); MONO # 0.3 (0.1-0.6); MONO % 4.6 % (1.0-6.0); RBC 3.81 10^6/uL (3.5-6.1); RED CELL DISTRIBUTION WIDTH 15.6 % (11.5-14.5); WHITE BLOOD COUNT 6.5 10^3/uL (4.5-11.0)
[2018-08-14 08:07] LABS: ALB/GLOB RATIO 0.7 (1.1-1.8); ALBUMIN 2.6 g/dL (3.0-4.8); CALCIUM 8.3 mg/dL (8.4-10.5)
[2018-08-14] MEDS: Insulin Detemir 100 units/ml Vial (Levemir) SC SCH (09:00)
[2018-08-14] MEDS: Insulin Lispro 1 UNITS/0.01 ML SC SCH ×3 (09:01→17:41)
[2018-08-14] MEDS: Insulin Reg-LOW-Coverage SC SCH ×5 (09:02→21:59)
[2018-08-14] MEDS ORDERED: Sod Polystyrene Sulf 15 gm/60 ml Susp PO ONE (09:34)
[2018-08-14] MEDS: ceFAZolin 1 gm in NS 1 GM/100 ML BAG IVPB SCH ×2 (10:01→21:55)
[2018-08-14] MEDS: Amylase/Lipase/Protease 5,000 Units ECC PO SCH ×5 (10:09→18:30)
--- NOTE | 2018-08-14 11:49 | CP.PCM.PN ---
Subjective - Date & Time of Evaluation Date of Evaluation: 08/15/18 Time of Evaluation: 09:10 - Subjective Subjective: No fevers, not in distress. Objective - Vital Signs/Intake and Output Vital Signs (last 24 hours): Temp Pulse Resp BP Pulse Ox 98 F 70 18 120/80 99 08/13/18 09:35 08/13/18 12:10 08/13/18 09:35 08/13/18 12:10 08/13/18 09:35 Intake and Output: 08/13/18 08/13/18 06:59 18:59 Intake Total 720 Balance 720 - Medications Medications: Current Medications Acetaminophen (Tylenol 325mg Tab) 650 mg PO Q6H PRN PRN Reason: Fever >100.4 F Last Admin: 08/12/18 23:10 Dose: 650 mg Alprazolam (Xanax) 0.25 mg PO HS [facility]; Protocol Stop: 08/18/18 22:01 Last Admin: 08/12/18 21:54 Dose: 0.25 mg Amylase (Pancrease 75644 U-5000 U-[id number] U) 1 unit PO TID [facility] Last Admin: 08/13/18 09:35 Dose: 1 unit Apixaban (Eliquis) 5 mg PO DAILY [facility]; Protocol Last Admin: 08/13/18 09:35 Dose: 5 mg Meropenem (Merrem Iv 1 Gm Premix) 1 gm in 50 mls @ 100 mls/hr IVPB Q12 [facility]; Protocol Stop: 08/20/18 15:16 Last Admin: 08/13/18 09:36 Dose: 100 mls/hr Insulin Detemir (Levemir) 20 unit SC DAILY [facility] Last Admin: 08/13/18 12:11 Dose: 20 units Insulin Human Lispro (Humalog) 10 units SC AC [facility] Last Admin: 08/13/18 12:11 Dose: 10 units Insulin Human Regular (Humulin R Low) 0 units SC ACHS [facility]; Protocol Last Admin: 08/13/18 12:13 Dose: Not Given Letrozole (Femara) 2.5 mg PO DAILY [facility] Last Admin: 08/12/18 14:40 Dose: 2.5 mg Nadolol (Corgard) 20 mg PO DAILY [facility] Last Admin: 08/13/18 12:10 Dose: 20 mg Ramipril (Altace) 2.5 mg PO DAILY [facility] Last Admin: 08/13/18 09:35 Dose: 2.5 mg Spironolactone (Aldactone) 50 mg PO BID [facility] Last Admin: 08/13/18 12:10 Dose: 50 mg - Labs Labs: 08/12/18 07:30 08/13/18 07:00 PT 13.3 SECONDS (9.4-12.5) H 08/10/18 19:05 INR 1.16 08/10/18 19:05 APTT 31.2 Seconds (25.1-36.5) 08/10/18 19:05 - Constitutional Appears: Chronically Ill - Head Exam Head Exam: NORMAL INSPECTION - Respiratory Exam Respiratory Exam: Decreased Breath Sounds - Cardiovascular Exam Cardiovascular Exam: +S1, +S2 - GI/Abdominal Exam GI & Abdominal Exam: Soft. absent: Tenderness Assessment and Plan - Assessment and Plan (Free Text) Plan: Assessment consider UTI with pyelonephritis with Proteus history of Sepsis R/O spontaneous bacterial peritonitis S/P paracentesis Hepatitis C with liver cirrhosis PUD GERD history of ESBL E. coli pyelonephritis Plan will change Merrem to Cefazolin day 4 and will need 10-14 days overall prognosis is poor
[2018-08-15 07:55] LABS: ALB/GLOB RATIO 0.7 (1.1-1.8); ALBUMIN 2.5 g/dL (3.0-4.8); CALCIUM 8.3 mg/dL (8.4-10.5)
[2018-08-15] MEDS: Insulin Reg-LOW-Coverage SC SCH ×4 (08:21→21:46)
[2018-08-15] MEDS: Insulin Lispro 1 UNITS/0.01 ML SC SCH ×3 (08:21→17:28)
--- NOTE | 2018-08-15 08:48 | PN ---
DATE: 08/14/2018 SUBJECTIVE: Patient is 73 years old, seen and examined, lying in bed, seems to be comfortable, complained of generalized weakness. She states she has no energy to get out of bed. Oral intake is fair. PHYSICAL EXAMINATION: VITAL SIGNS: She is afebrile, pulse 56, respiration 19, blood pressure 102/60. LUNGS: Bilateral fair airflow. No rhonchi or crackle. HEART: S1 and S2 audible. ABDOMEN: Soft, nontender. No guarding. EXTREMITIES: Bilateral leg no edema. NEUROLOGICAL: Patient is awake, alert, oriented, communicative. LABORATORY EXAMINATION: WBC 6.5, hemoglobin 10.9, hematocrit 33.1, platelet of 60. Chemistry: Sodium 133, potassium 5.5, chloride 105, CO2 23, BUN 47, creatinine 1.5, blood sugar of 204, albumin 2.6. She is growing Proteus mirabilis UTI and blood cultures are negative. ASSESSMENT: 1. Episode of altered mental status, but ammonia level is fine. 2. Proteus mirabilis urinary tract infection. 3. Cirrhosis of liver. 4. Chronic atrial fibrillation. 5. History of hypertension, currently she is having hypotension. 6. Cardiac cirrhosis. 7. Hyperkalemia. PLAN: I will give the patient Kayexalate. Continue her on current antibiotics. Add Splina. We will reevaluate in a.m. Possible discharge plan in a.m. Wilda Saha MD
[2018-08-15] MEDS: ceFAZolin 1 gm in NS 1 GM/100 ML BAG IVPB SCH ×2 (11:05→21:44)
[2018-08-15] MEDS: Insulin Detemir 100 units/ml Vial (Levemir) SC SCH (11:06)
[2018-08-15] MEDS: Amylase/Lipase/Protease 5,000 Units ECC PO SCH ×2 (11:06→17:28)
--- NOTE | 2018-08-15 12:21 | CP.PCM.PN ---
Subjective - Date & Time of Evaluation Date of Evaluation: 08/15/18 Time of Evaluation: 08:45 - Subjective Subjective: Patient is feeling better today, no fevers, had nausea yesterday but it has resolved. No diarrhea. Objective - Vital Signs/Intake and Output Vital Signs (last 24 hours): Temp Pulse Resp BP Pulse Ox 97.8 F 66 19 102/60 100 08/14/18 06:00 08/14/18 09:56 08/14/18 06:00 08/14/18 10:00 08/13/18 22:05 Intake and Output: 08/14/18 08/14/18 06:59 18:59 Intake Total 840 Output Total 0 Balance 840 - Medications Medications: Current Medications Acetaminophen (Tylenol 325mg Tab) 650 mg PO Q6H PRN PRN Reason: Fever >100.4 F Last Admin: 08/14/18 04:13 Dose: 650 mg Alprazolam (Xanax) 0.25 mg PO HS [facility]; Protocol Stop: 08/18/18 22:01 Last Admin: 08/13/18 21:39 Dose: 0.25 mg Amylase (Pancrease 91620 U-5000 U-[id number] U) 1 unit PO WM [facility] Apixaban (Eliquis) 5 mg PO DAILY [facility]; Protocol Last Admin: 08/14/18 10:00 Dose: 5 mg Cefazolin Sodium (Ancef 1gm In Ns) 1 gm in 100 mls @ 100 mls/hr IVPB Q12 [facility]; Protocol Last Admin: 08/14/18 10:01 Dose: 100 mls/hr Insulin Detemir (Levemir) 20 unit SC DAILY [facility] Last Admin: 08/14/18 09:00 Dose: 20 units Insulin Human Lispro (Humalog) 10 units SC AC [facility] Last Admin: 08/14/18 09:01 Dose: 10 units Insulin Human Regular (Humulin R Low) 0 units SC ACHS [facility]; Protocol Last Admin: 08/14/18 09:03 Dose: 2 units Letrozole (Femara) 2.5 mg PO DAILY [facility] Last Admin: 08/14/18 10:31 Dose: 2.5 mg Nadolol (Corgard) 20 mg PO DAILY [facility] Last Admin: 08/14/18 09:56 Dose: 20 mg Ramipril (Altace) 2.5 mg PO DAILY [facility] Last Admin: 08/14/18 10:00 Dose: 2.5 mg - Labs Labs: 08/14/18 07:40 08/14/18 07:40 PT 13.3 SECONDS (9.4-12.5) H 08/10/18 19:05 INR 1.16 08/10/18 19:05 APTT 31.2 Seconds (25.1-36.5) 08/10/18 19:05 - Constitutional Appears: No Acute Distress, Chronically Ill - Head Exam Head Exam: NORMAL INSPECTION - Respiratory Exam Respiratory Exam: Decreased Breath Sounds - Cardiovascular Exam Cardiovascular Exam: +S1, +S2 - GI/Abdominal Exam GI & Abdominal Exam: Soft. absent: Tenderness Assessment and Plan - Assessment and Plan (Free Text) Plan: Assessment consider UTI with pyelonephritis with Proteus history of Sepsis R/O spontaneous bacterial peritonitis S/P paracentesis Hepatitis C with liver cirrhosis PUD GERD history of ESBL E. coli pyelonephritis Plan continue Cefazolin day 5 and will need 10-14 days - may switch to PO antibiotics when ready to be discharged overall prognosis is poor
--- NOTE | 2018-08-15 12:38 | PN ---
DATE: 08/15/2018 SUBJECTIVE: The patient is 73 years old, seen and examined. Comes in with generalized weakness. No energy. 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 PHYSICAL EXAMINATION: VITAL SIGNS: She is afebrile, pulse 65, respirations 18, blood pressure 128/85. LUNGS: Bilateral fair airflow. No rhonchi or crackle. HEART: S1 and S2 audible. ABDOMEN: Soft. Nontender. No rebound. No guarding. NEUROLOGICAL: The patient is awake and alert, able to communicate. Looks pale. EXTREMITIES: Bilateral leg, no edema. LABORATORY EXAM: WBC is 6.5, hemoglobin 10.9, hematocrit 33.1, platelet of 60. Chemistry: Sodium 132, potassium 4.5, chloride 104, CO2 of 24, BUN 50, creatinine 1.1, blood sugar of 135. LFTs are within normal limit. Her urine culture positive for Proteus mirabilis. Blood cultures are negative. ASSESSMENT: Generalized weakness. Etiology is multifactorial. Her blood pressure is running on the low side. I will cut down her nadolol to 10 mg. Encourage physical therapy. Spoke to Operations Support Manager. We will arrange for home therapy upon discharge and plan for discharge is in the a.m. Wilda Saha MD MTDD
[2018-08-15 14:44] LABS: FREE T4 0.95 ng/dL (0.78-2.19)
[2018-08-15] MEDS ORDERED: Amylase/Lipase/Protease 5,000 Units ECC PO SCH (16:30)
[2018-08-16 00:31] VITALS: PULSE 70
[2018-08-16 08:36] VITALS: BP 105/69; RESP 18; TEMP 98.4; O2SAT 98
[2018-08-16] MEDS: Insulin Lispro 1 UNITS/0.01 ML SC SCH (08:40)
[2018-08-16] MEDS: Amylase/Lipase/Protease 5,000 Units ECC PO SCH (08:40)
[2018-08-16] MEDS: Insulin Reg-LOW-Coverage SC SCH (08:40)
[2018-08-16] MEDS: ceFAZolin 1 gm in NS 1 GM/100 ML BAG IVPB SCH (09:36)
[2018-08-16] MEDS ORDERED: Albumin Human 25% (12.5 gm/50 ml) IVPB ONE (13:00)
--- NOTE | 2018-08-16 14:12 | DS ---
HISTORY OF PRESENT ILLNESS: Patient is 73-year-old, seen and examined, doing better, still has generalized weakness. Denies any nausea or vomiting. Eating and tolerating. PHYSICAL EXAMINATION: VITAL SIGNS: She is afebrile. Pulse 70, respirations 18, and blood pressure 105/69. LUNGS: Bilateral fair airflow. No rhonchi or crackle. HEART: S1 and S2 audible. ABDOMEN: Soft. catheter in place. LABORATORY DATA: Blood sugar is 250. Thyroid profile is within normal limits. ASSESSMENT AND PLAN: 1. Cirrhosis of liver. 2. Hepatitis C. 3. History of carcinoma of breast getting radiation therapy. 4. Coronary artery disease status post angioplasty. 5. Chronic atrial fibrillation. 6. Thrombocytopenia. 7. Insulin-dependent diabetes. 8. Cirrhotic ascites. PLAN: We will give her a dose of albumin. We will tap her ascites today. We will continue her on nadolol. Continue her on Eliquis. Currently, she is on Ancef for Proteus mirabilis and medication will be switched to p.o. and will be discharged later on today. She will be managed as outpatient, and she will be resume all her medications prior to admission. Wilda Saha MD
--- NOTE | 2018-08-17 08:31 | PN ---
DATE: 08/16/2018 SUBJECTIVE: The patient is seen earlier in room 575, bed 1. No fevers. No chills. PHYSICAL EXAMINATION: VITAL SIGNS: Temperature is 98, blood pressure is 112/70, and respiratory rate 16. HEENT: Unremarkable. NECK: Supple. LUNGS: Had decreased breath sounds. HEART: Normal S1 and S2. ABDOMEN: Soft. LABORATORY DATA: Laboratory examination reveals a white count of 6.5, hemoglobin of 10. Chemistries are noted. Urinalysis is noted. ASSESSMENT AND PLAN: This is a 73-year-old female who is seen earlier this morning in room 575, bed 1. Doing much, much better with Proteus urinary tract infection and pyelonephritis; history of spontaneous bacterial peritonitis, status post paracentesis; history of hepatitis C and liver cirrhosis; history of extended-spectrum beta-lactamase, on cefazolin day #6 with complete in 14 days. Switch to oral antibiotics. May complete therapy. The case is discussed with patient. The need for a followup as an outpatient is fully explained to the patient who understands and . Minh Tran MD
== END 2018-08-16 16:18 | disposition home health service (06) | DRG 690 ==
LOC: ED 17:34 → ERH 08-11 00:14 → 5RSO 08-11 02:06
PROVIDERS: ADMIT Internal Medicine; ATTEND Internal Medicine
DX: N39.0 Urinary tract infection, site not specified (principal); R18.8 Other ascites; E86.0 Dehydration; D69.6 Thrombocytopenia, unspecified; B19.20 Unspecified viral hepatitis C without hepatic coma; B96.20 Unspecified Escherichia coli [E. coli] as the cause of diseases classified elsewhere; B96.4 Proteus (mirabilis) (morganii) as the cause of diseases classified elsewhere; D64.9 Anemia, unspecified; E11.36 Type 2 diabetes mellitus with diabetic cataract; E11.65 Type 2 diabetes mellitus with hyperglycemia; E78.5 Hyperlipidemia, unspecified; E87.5 Hyperkalemia; H40.9 Unspecified glaucoma; I10 Essential (primary) hypertension; I25.10 Atherosclerotic heart disease of native coronary artery without angina pectoris; I48.2 Chronic atrial fibrillation; K21.9 Gastro-esophageal reflux disease without esophagitis; K59.00 Constipation, unspecified; K72.90 Hepatic failure, unspecified without coma; K74.60 Unspecified cirrhosis of liver; M19.90 Unspecified osteoarthritis, unspecified site; M48.00 Spinal stenosis, site unspecified; Z79.01 Long term (current) use of anticoagulants; Z79.4 Long term (current) use of insulin; Z79.811 Long term (current) use of aromatase inhibitors; C50.911 Malignant neoplasm of unspecified site of right female breast; Z86.19 Personal history of other infectious and parasitic diseases; Z87.11 Personal history of peptic ulcer disease; Z87.440 Personal history of urinary (tract) infections; Z90.11 Acquired absence of right breast and nipple; Z90.49 Acquired absence of other specified parts of digestive tract; Z90.710 Acquired absence of both cervix and uterus; Z95.5 Presence of coronary angioplasty implant and graft

== ENCOUNTER 2018-09-07 10:20 | Inpatient (IN) | payer MEDICARE ==
[2018-09-07 10:29] VITALS: BMI 27.4
--- NOTE | 2018-09-07 11:12 | ED PDOC ---
Arrival/HPI - General Chief Complaint: Fever Time Seen by Provider: 09/07/18 10:32 Historian: Patient - History of Present Illness Narrative History of Present Illness (Text): 09/07/18 11:01 73 year old female, with past medical history of Afib (on Eliquis), HTN, Cirrhosis, Thrombocytopenia, DM, Ascites (with drain, by Dr. Kenny Munoz, ~ March 2018), Breast CA s/p right mastectomy, presents to the Emergency department complaining of fever and generalized weakness since yesterday. Patient reports finishing her radiation treatment yesterday at [place], where she developed a fever and and was asked to be admitted for evaluation. However, patient refused at the time and went to her PMD, Dr. Saha. As per patient, Dr. Saha advised her to come to the ED if the symptoms worsen over time. Patient reports worsening symptoms throughout the day with increased weakness and fatigue. Patient reports a Tmax of 101.4 last night, prompting her to present to the ED for medical evaluation. Patient reports fall to the floor secondary to weakness and reports hitting her head, however patient denies any loss of consciousness. Patient denies any other associated somatic complaints. Patient denies any chills, headache, dizziness, chest pain, shortness of breath, dyspnea on exertion, cough, abdominal pain, nausea, vomiting, diarrhea, back pain, neck pain, or any other complaints. PMD: Dr. Saha Time/Duration: 24 hours Symptom Onset: Gradual Symptom Course: Unchanged Activities at Onset: Light Context: Home Past Medical History - Provider Review Nursing Documentation Reviewed: Yes - Infectious Disease Hx of Infectious Diseases: None - Tetanus Immunization Tetanus Immunization: Unknown - Reproductive Menopause: Yes - Cardiac Hx Cardiac Disorders: Yes Hx Hypertension: Yes - Pulmonary Hx Respiratory Disorders: No (denies) - Neurological Hx Neurological Disorder: No - HEENT Hx HEENT Disorder: Yes (WEARS RX GLASSES) Hx Cataracts: Yes (B/L SX) Hx Glaucoma: Yes (B/L SX) - Renal Hx Renal Disorder: No - Endocrine/Metabolic Hx Diabetes Mellitus Type 1: Yes - Hematological/Oncological Hx Blood Disorders: Yes Hx Anemia: Yes Hx Cancer: Yes (breast) Hx Chemotherapy: Yes Hx Cirrhosis: Yes (ASCITIS) Hx Hepatitis C: Yes (from blood transfusion) - Integumentary Hx Dermatological Disorder: No - Musculoskeletal/Rheumatological Hx Arthritis: Yes (knees) Hx Falls: No - Gastrointestinal Hx Gastrointestinal Disorders: Yes Hx Gall Bladder Disease: Yes Hx Gastroesophageal Reflux: Yes Hx Liver Failure: Yes - Genitourinary/Gynecological Hx Genitourinary Disorders: Yes Hx Urinary Tract Infection: Yes - Psychiatric Hx Psychophysiologic Disorder: Yes (INSOMNIA) Hx Depression: No Hx Emotional Abuse: No Hx Physical Abuse: No Hx Substance Use: No - Surgical History Hx Appendectomy: Yes Hx Cardiac Catheterization: Yes (2011) Hx Cholecystectomy: Yes Hx Coronary Stent: Yes (2011) Hx Hysterectomy: Yes Hx Mastectomy: Yes (RIGHT) Hx Orthopedic Surgery: No - Anesthesia Hx Anesthesia: Yes Hx Anesthesia Reactions: No Hx Malignant Hyperthermia: No - Suicidal Assessment Feels Threatened In Home Enviroment: No Family/Social History - Physician Review Nursing Documentation Reviewed: Yes Family/Social History: Unknown Family HX Smoking Status: Never Smoked Hx Alcohol Use: No Hx Substance Use: No Hx Substance Use Treatment: No Allergies/Home Meds Allergies/Adverse Reactions: Allergies ciprofloxacin Allergy (Severe, Verified 08/10/18 18:06) RASH nitrofurantoin Allergy (Severe, Verified 08/10/18 18:06) RASH Sulfa (Sulfonamide Antibiotics) Allergy (Severe, Verified 08/10/18 18:06) RASH Home Medications: Home Meds Medication Instructions Recorded Confirmed Insulin Detemir [Levemir] 20 unit SC DAILY 09/27/13 08/10/18 Apixaban [Eliquis] 5 mg PO DAILY 01/08/15 08/10/18 Ramipril [Altace] 10 mg PO DAILY 01/08/15 08/10/18 Letrozole [Femara] 2.5 mg PO DAILY 02/27/16 08/10/18 Insulin Aspart, Recombinant 10 units SUBCUT AC 08/03/16 08/10/18 [Novolog] Nadolol [Corgard] 20 mg PO DAILY 08/03/16 08/10/18 Lipase/Protease/Amylase [Pancreaze 1 each PO TID 08/10/18 08/10/18 Dr 4,200 Unit Cap] Sucralfate [Carafate] 1 gm PO TID 08/10/18 08/10/18 Review of Systems - Physician Review All systems were reviewed & negative as marked: Yes - Review of Systems Constitutional: Fevers Eyes: absent: Vision Changes Respiratory: absent: SOB, Cough Cardiovascular: absent: Chest Pain, NAGEL Gastrointestinal: absent: Abdominal Pain, Diarrhea, Nausea, Vomiting Genitourinary Female: absent: Dysuria, Urine Output Changes Musculoskeletal: absent: Back Pain, Neck Pain Skin: absent: Rash Neurological: absent: Headache, Dizziness Physical Exam Vital Signs Reviewed: Yes Vital Signs Temp 09/07/18 11:00 98.7 F Temperature: Afebrile Blood Pressure: Normal Pulse: Regular Respiratory Rate: Normal Appearance: Positive for: Well-Appearing, Non-Toxic, Comfortable Pain Distress: None Mental Status: Positive for: Alert and Oriented X 3 - Systems Exam Head: Present: Atraumatic, Normocephalic, Tenderness (Mild tenderness to posterior aspect of head.) Pupils: Present: PERRL Extroacular Muscles: Present: EOMI Conjunctiva: Present: Normal Neck: Present: Normal Range of Motion Respiratory/Chest: Present: Clear to Auscultation, Good Air Exchange, Tender to Palpation (Tenderness to upper chest wall). No: Respiratory Distress, Accessory Muscle Use Cardiovascular: Present: Regular Rate and Rhythm, Normal S1, S2. No: Murmurs Abdomen: Present: Other (Liver drain noted, clean, dry and intact with dressing.). No: Tenderness, Distention, Peritoneal Signs Back: Present: Normal Inspection Upper Extremity: Present: Normal Inspection. No: Cyanosis, Edema Lower Extremity: Present: Normal Inspection. No: Edema Neurological: Present: GCS=15, CN II-XII Intact, Speech Normal Skin: Present: Warm, Dry, Normal Color. No: Rashes Psychiatric: Present: Alert, Oriented x 3, Normal Insight, Normal Concentration Medical Decision Making ED Course and Treatment: 09/07/18 11:03 Impression: 73 year old female presents to the Emergency department complaining of fever and generalized weakness. Differential Diagnosis included but are not limited to: Sepsis vs. Electrolyte imbalance vs. Post radiation Trauma r/o fracture vs. intracranial hemorrhage Plan: -- VBG -- CT of Head -- EKG -- Labs -- Blood Culture -- Urine Culture -- X-ray of Right Foot -- Urinalysis -- Reassess and disposition Prior Visits: Notes and results from previous visits were reviewed. Progress Notes: 09/07/18 11:30 EKG: Ordered, reviewed, and independently interpreted the EKG. Rate : 80 BPM Rhythm : A-fib 09/07/18 14:11 Calcium is low. Corrected with low albumin does not indicate replacement. Anemia noted compared to previous Hgb. No active bleeding reported. I discussed the case with Dr. Saha who states patient had a high fever at her office which concerns her. The patient feels better but is weak. At this time Dr. Saha and I agreed that no antibiotics will be ordered. CXR negative. UA negative. No fever in ED. We will admit her for Weakness, Dehydration and Anemia. - EKG Interpretation Interpreted by ED Physician: Yes Type: 12 lead EKG - Scribe Statement The provider has reviewed the documentation as recorded by the Scribe Susy Teresa. All medical record entries made by the Scribe were at my direction and personally dictated by me. I have reviewed the chart and agree that the record accurately reflects my personal performance of the history, physical exam, medical decision making, and the department course for this patient. I have also personally directed, reviewed, and agree with the discharge instructions and disposition. Disposition/Present on Arrival - Present on Arrival Any Indicators Present on Arrival: No History of DVT/PE: No History of Uncontrolled Diabetes: No Urinary Catheter: No History of Decub. Ulcer: No History Surgical Site Infection Following: None - Disposition Have Diagnosis and Disposition been Completed?: Yes Diagnosis: Weakness, Anemia, Dehydration Disposition: HOSPITALIZED Disposition Time: 14:15 Patient Plan: Observation Condition: FAIR
[2018-09-07] MEDS ORDERED: Sodium Chloride 0.9% 500 ML IV STA (11:15)
[2018-09-07 11:52] LABS: BASO # 0.01 K/mm3 (0.0-2.0); BASO % 0.1 % (0.0-3.0); EOS # 0.1 (0.0-0.7); EOS % 1.9 % (1.5-5.0); GRAN # 5.98 (1.4-6.5); GRAN % 87.9 % (50.0-68.0); HEMOGLOBIN 8.6 g/dL (12.0-16.0); LYMPH # 0.4 (1.2-3.4); LYMPH % 5.7 % (22.0-35.0); MEAN CELL VOLUME 88.1 fl (80.0-105.0); MEAN CORPUSCULAR HEMOGLOBIN 29.3 pg (25.0-35.0); MEAN CORPUSCULAR HGB CONC 33.2 g/dl (31.0-37.0); MEAN PLATELET VOLUME 9.4 fl (7.0-11.0); MONO # 0.3 (0.1-0.6); MONO % 4.4 % (1.0-6.0); RBC 2.94 10^6/uL (3.5-6.1); RED CELL DISTRIBUTION WIDTH 15.4 % (11.5-14.5); WHITE BLOOD COUNT 6.8 10^3/uL (4.5-11.0)
[2018-09-07 11:54] LABS: VENOUS BLOOD GAS BASE EXCESS -0.3 mmol/L (0.0-2.0); VENOUS BLOOD GAS PO2 174 mm/Hg (30-55); VENOUS BLOOD PH 7.48 (7.32-7.43)
[2018-09-07 12:00] LABS: INR 1.38; PARTIAL THROMBOPLASTIN TIME 30.1 Seconds (25.1-36.5)
[2018-09-07 12:03] LABS: ALB/GLOB RATIO 0.7 (1.1-1.8); ALBUMIN 2.5 g/dL (3.0-4.8)
--- NOTE | 2018-09-07 12:38 | CT ---
Date of service: 09/07/2018 PROCEDURE: CT HEAD WITHOUT CONTRAST. HISTORY: head injury on eliquis COMPARISON: None available. TECHNIQUE: Axial computed tomography images were obtained through the head/brain without intravenous contrast. Radiation dose: Total exam DLP = 773.14 mGy-cm. This CT exam was performed using one or more of the following dose reduction techniques: Automated exposure control, adjustment of the mA and/or kV according to patient size, and/or use of iterative reconstruction technique. FINDINGS: HEMORRHAGE: No intracranial hemorrhage. BRAIN: No mass effect or edema. Chronic microvascular ischemic disease. VENTRICLES: Unremarkable. No hydrocephalus. CALVARIUM: Unremarkable. PARANASAL SINUSES: Unremarkable as visualized. No significant inflammatory changes. MASTOID AIR CELLS: Unremarkable as visualized. No inflammatory changes. OTHER FINDINGS: None. IMPRESSION: No acute hemorrhage.
--- NOTE | 2018-09-07 12:59 | RAD ---
Date of service: 09/07/2018 HISTORY: Sepsis COMPARISON: 08/10/2018 TECHNIQUE: Chest PA and lateral FINDINGS: LINES AND TUBES: None. LUNG AND PLEURA: There is moderate pulmonary venous congestion. No pleural effusion or pneumothorax. HEART AND MEDIASTINUM: Mild cardiomegaly. No aortic atherosclerotic calcification present. The hilar and mediastinal contours are within normal limits. SKELETAL STRUCTURES: The bony structures are within normal limits for the patient's age. VISUALIZED UPPER ABDOMEN: Normal. OTHER FINDINGS: There are multiple surgical clips in the right axilla. IMPRESSION: No active pulmonary disease. Moderate pulmonary venous congestion.
--- NOTE | 2018-09-07 13:03 | RAD ---
Date of service: 09/07/2018 PROCEDURE: Right Foot Radiographs. HISTORY: injury r/o fx COMPARISON: None. FINDINGS: BONES: There is diffuse bone demineralization. There is no acute displaced fracture or bone destruction. Bone alignment is normal. JOINTS: Normal. SOFT TISSUES: Normal. OTHER FINDINGS: None. IMPRESSION: No acute fracture or dislocation.
[2018-09-07 16:05] LABS: URINE BILIRUBIN NEGATIVE (NEGATIVE); URINE BLOOD NEGATIVE (NEGATIVE); URINE GLUCOSE (UA) 250 mg/dL (NEGATIVE); URINE LEUKOCYTE ESTERASE NEGATIVE Leu/uL (NEGATIVE); URINE PROTEIN NEGATIVE mg/dL (<30 mg/dL); URINE UROBILINOGEN 0.2 E.U./dL (<1 E.U./dL)
[2018-09-07 16:08] LABS: URINE APPEARANCE CLEAR (CLEAR); URINE COLOR YELLOW (YELLOW)
--- NOTE | 2018-09-07 20:30 | CARD ---
APPROVED REPORT Date of service: 09/07/2018 EKG Measurement Heart [id number] <Conclusion> Atrial fibrillation with a competing junctional pacemaker Left axis deviation Low voltage QRS Incomplete right bundle branch block Inferior infarct, age undetermined Possible Anterolateral infarct, age undetermined Abnormal ECG
--- NOTE | 2018-09-07 21:24 | HP ---
DATE OF EXAM: 09/07/2018 HISTORY OF PRESENT ILLNESS: The patient is a 73-year-old, seen in office yesterday. She was very lethargic, pale, high 101 temperature. The patient did finish her radiation therapy yesterday. I referred her to emergency room for further evaluation since the patient has complicated past medical history and she is immunocompromised; however, she did not go to the hospital yesterday and she showed up today to emergency room. Still complaining of feeling extremely tired, fatigued, no energy, poor appetite. PAST MEDICAL HISTORY: She has a significant past medical history of: 1. Insulin-dependent diabetes. 2. History of breast CA, status post mastectomy and having radiation to axillary lymph nodes. 3. Hyperlipidemia. 4. Chronic AFib. 5. Hepatitis C. 6. Cirrhosis of liver. 7. Thrombocytopenia. 8. Coronary artery disease, status post multiple angioplasties. ALLERGIES: SHE IS ALLERGIC TO CIPRO, NITROFURANTOIN, AND SULFA. MEDICATIONS AT HOME: She is on Carafate. She is on ramipril, metoprolol, pancreatic enzyme, Femara, and she takes insulin 20 units daily and NovoLog 10 units before each meal, Eliquis 5 mg twice a day. SOCIAL HISTORY: She denies smoking, drinking, or alcohol use. She is . She lives with her . PHYSICAL EXAMINATION GENERAL: She looks pale, slightly look sick. VITAL SIGNS: She is afebrile, pulse 84, respirations 16, blood pressure 114/65. LUNGS: Bilateral fair airflow, decreased at bases. HEART: S1, S2 audible. ABDOMEN: Soft. She has catheter in her lower abdominal area to drain the ascitic fluid. The site does not look infected. EXTREMITIES: Bilateral leg, +1 edema. LABORATORY EXAM: WBC 6.8, hemoglobin 8.6, hematocrit 25.9, platelet of 95. PT 16.0, INR 1.38. Chemistry: Sodium 128, potassium 4.9, chloride 100, CO2 of 22, BUN 41, creatinine 1.1, blood sugar of 297, calcium 8.0, total bili 2.0. Urine 250 of glucose. X-ray of chest: Reactive pulmonary disease, pulmonary venous congestion. CT scan of the head is unremarkable. X-ray of the foot: No acute fracture or dislocation. ASSESSMENT: 1. History of breast cancer, history of uterine cancer, status post total abdominal hysterectomy, status post mastectomy, currently on radiation. 2. Insulin-dependent diabetes. 3. Hypertension. 4. Hyperlipidemia. 5. Hepatitis C. 6. Coronary artery disease, status post angioplasty. 7. Chronic pancreatitis. PLAN: We will resume her medications. We will monitor her for 24 hours. At this point, there is no source of infection. Her urine is clear. The lungs are clear. I will order for CT scan of the chest and order for procalcitonin in a.m. The patient if remains stable probably will be discharged in a.m. Wilda Saha MD
[2018-09-07] MEDS ORDERED: Insulin Lispro (humaLOG) MIX 75/25(10 ml) SC STA (21:40)
[2018-09-07] MEDS: Morphine 2 mg/ml ISec IVP PRN (23:04)
[2018-09-08 08:09] LABS: BASO # 0.01 K/mm3 (0.0-2.0); BASO % 0.2 % (0.0-3.0); EOS # 0.2 (0.0-0.7); GRAN # 4.46 (1.4-6.5); GRAN % 83.5 % (50.0-68.0); HEMOGLOBIN 8.1 g/dL (12.0-16.0); LYMPH # 0.4 (1.2-3.4); LYMPH % 7.9 % (22.0-35.0); MEAN CELL VOLUME 88.5 fl (80.0-105.0); MEAN CORPUSCULAR HEMOGLOBIN 29.1 pg (25.0-35.0); MEAN CORPUSCULAR HGB CONC 32.9 g/dl (31.0-37.0); MEAN PLATELET VOLUME 9.2 fl (7.0-11.0); MONO # 0.3 (0.1-0.6); MONO % 5.4 % (1.0-6.0); RBC 2.78 10^6/uL (3.5-6.1); RED CELL DISTRIBUTION WIDTH 15.3 % (11.5-14.5); WHITE BLOOD COUNT 5.3 10^3/uL (4.5-11.0)
[2018-09-08 08:21] LABS: ALB/GLOB RATIO 0.7 (1.1-1.8); ALBUMIN 2.2 g/dL (3.0-4.8); CALCIUM 7.5 mg/dL (8.4-10.5)
[2018-09-08] MEDS: Insulin Lispro 1 UNITS/0.01 ML SC SCH ×3 (08:21→19:59)
[2018-09-08] MEDS: Insulin Lispro (humaLOG) MIX 75/25(10 ml) SC SCH ×2 (08:21→19:58)
[2018-09-08] MEDS: Amylase/Lipase/Protease 5,000 Units ECC PO SCH ×3 (11:11→17:45)
[2018-09-08] MEDS: Insulin Detemir 100 units/ml Vial (Levemir) SC SCH (11:11)
[2018-09-08] MEDS ORDERED: Sodium Chloride 0.45% 1,000 ML IV SCH ×2 (11:30→12:31)
[2018-09-08] MEDS: Morphine 2 mg/ml ISec IVP PRN (11:49)
[2018-09-08] MEDS ORDERED: Barium Sulfate Susp 2.1% w/v, 2.0% w/w 450 mL Bottle PO ONE (12:43)
[2018-09-08] MEDS ORDERED: Vancomycin 500mg in NS 500 MG/100 ML BAG IVPB SCH (12:45)
[2018-09-08] MEDS ORDERED: DAPTOmycin 500 mg Inj (Cubicin) IV SCH (14:00)
--- NOTE | 2018-09-08 14:07 | PN ---
DATE: 09/08/2018 SUBJECTIVE: The patient is 73 years old, complained of generalized weakness. She states she has fair appetite but not really had desire to eat much. Has difficulty walking, had multiple falls at home because of generalized weakness. The patient complained of difficulty sleeping, complained of abdominal discomfort. PHYSICAL EXAMINATION VITAL SIGNS: She is afebrile. Pulse 60, respirations 18, blood pressure 113/62. LUNGS: Bilateral fair airflow, decreased at bases. HEART: S1 and S2 audible. ABDOMEN: Soft, nontender. No rebound, no guarding. NEUROLOGIC: She has generalized weakness and difficulty walking. Bilateral leg +1 edema. She has a spinal catheter in place. She has right paraumbilical lump, I do not know if it is a scar tissue around her catheter or if she has paraumbilical hernia. LABORATORY EXAM: WBC is 5.3, hemoglobin 8.1, hematocrit 24.6, platelets 78. Chemistry: Sodium 127, potassium 5.0, chloride 100, CO2 23, BUN 48, creatinine 1.3, blood sugar of 284. Urine shows positive glucose. Her blood culture shows gram-positive cocci, second blood culture is negative. DIAGNOSTIC DATA: CT scan of the head and brain is negative. X-ray chest shows pulmonary venous congestion. EKG shows AFib with junctional pacemaker, left axis deviation. ASSESSMENT: 1. Generalized weakness. 2. Bacteremia. 3. Pancytopenia. 4. History of cirrhosis liver. 5. Hepatitis C. 6. Chronic atrial fibrillation. 7. Coronary artery disease. 8. Paraumbilical hernia versus ventral hernia. 9. Insulin-dependent diabetes. PLAN: We will give her one blood transfusion, monitor her blood sugar. I will give her a dose of vancomycin. We will request ID evaluation. Dr. Lowe to evaluate her abdominal wall mass and needs Dr. Gan's input for her anemia and thrombocytopenia. Wilda Saha MD (Delete this signature block when dictator is a preceptor.)
--- NOTE | 2018-09-08 14:36 | CP.PCM.PN ---
Subjective - Date & Time of Evaluation Date of Evaluation: 09/08/18 Time of Evaluation: 14:17 Objective - Vital Signs/Intake and Output Vital Signs (last 24 hours): Temp Pulse Resp BP Pulse Ox 98.1 F 68 18 113/62 98 09/08/18 06:00 09/08/18 11:10 09/08/18 06:00 09/08/18 11:10 09/08/18 06:00 Intake and Output: 09/08/18 09/08/18 06:59 18:59 Intake Total 540 Balance 540 - Medications Medications: Current Medications Alprazolam (Xanax) 0.25 mg PO HS PRN; Protocol PRN Reason: anxiety/insomnia Stop: 09/14/18 22:01 Last Admin: 09/07/18 23:04 Dose: 0.25 mg Amylase (Pancrease 37835 U-5000 U-24753 U) 5,000 unit PO TID [facility] Last Admin: 09/08/18 13:35 Dose: 5,000 unit Apixaban (Eliquis) 5 mg PO DAILY [facility]; Protocol Last Admin: 09/08/18 11:11 Dose: 5 mg Furosemide (Lasix) 40 mg PO DAILY [facility] Last Admin: 09/08/18 11:10 Dose: 40 mg Sodium Chloride (Sodium Chloride 0.45%) 1,000 mls @ 40 mls/hr IV .Q24H [facility] Last Admin: 09/08/18 13:35 Dose: 40 mls/hr Daptomycin 420 mg/ Sodium (Chloride) 100 mls @ 200 mls/hr IV Q24H [facility] Stop: 09/17/18 14:01 Insulin Detemir (Levemir) 20 unit SC DAILY [facility] Last Admin: 09/08/18 11:11 Dose: 20 u Insulin Human Lispro (Humalog) 10 units SC AC [facility] Last Admin: 09/08/18 12:34 Dose: 10 u Insulin Lispro Protam/Lispro Human (Humalog Mix 75/25) 8 units SC ACBD [facility] Last Admin: 09/08/18 08:21 Dose: 8 u Morphine Sulfate (Morphine) 2 mg IVP Q4H PRN PRN Reason: Pain, moderate (4-7) Last Admin: 09/08/18 11:49 Dose: 2 mg Nadolol (Corgard) 20 mg PO DAILY [facility] Last Admin: 09/08/18 11:10 Dose: 20 mg Ondansetron HCl (Zofran Inj) 4 mg IVP Q6H PRN PRN Reason: Nausea/Vomiting Last Admin: 09/08/18 12:38 Dose: 4 mg Sucralfate (Carafate Tab) 1 gm PO AC [facility] Last Admin: 09/08/18 12:35 Dose: 1 gm - Labs Labs: 09/08/18 07:45 09/08/18 07:45 PT 16.0 SECONDS (9.4-12.5) H 09/07/18 11:40 INR 1.38 09/07/18 11:40 APTT 30.1 Seconds (25.1-36.5) 09/07/18 11:40 Assessment and Plan - Assessment and Plan (Free Text) Assessment: PGY-1 Surgery Consult Note for Dr. Nye Patient is a 73 year old female with extensive PMHx including Hep C, cirrhosis with ascites s/p IR drain placement, thrombocytopenia, DM, breast CA s/p R breast mastectomy who is being evaluated by surgery for a ventral hernia. Patient states that she first noticed this hernia, which is in the LRQ, about 2- 3 months ago. She does have a history of multiple abdominal surgeries including appendectomy, cholecystectomy, and did recently abdominal drain placed by IR for ascitic fluid drainage. Patient states she does have burning pain near the area of the hernia which radiates across the abdomen and to the pack. Pain is intermittent and not affected by movement or positional changes. She has tried to reduce the hernia on her own but has been unable to. She admits to occasional nausea and vomiting, vomited most recently one week ago. She does have sparse bowel movements- had been having diarrhea which she says has subsided,
--- NOTE | 2018-09-08 14:42 | CP.PCM.CON ---
<AlejandroamiKelby - Last Filed: 09/08/18 14:47> History of Present Illness - History of Present Illness History of Present Illness: PGY-1 Surgery Consult Note for Dr. Giraldo Patient is a 73 year old female with extensive PMHx including Hep C, cirrhosis with ascites s/p IR drain placement, thrombocytopenia, DM, breast CA s/p R breast mastectomy who is being evaluated by surgery for a ventral hernia. Patient was admitted to hospital for fever post-radiation therapy, surgery has been consulted for evaluation of abdominal hernia. Patient states that she first noticed this hernia, which is in the RLQ, about 2-3 months ago. She does have a history of multiple abdominal surgeries including appendectomy, cholecystectomy, and did recently abdominal drain placed by IR for ascitic fluid drainage. Patient states she does have burning pain near the area of the hernia which radiates across the abdomen and to the pack. Pain is intermittent and not affected by movement or positional changes. She has tried to reduce the hernia on her own but has been unable to. She admits to occasional nausea and vomiting, vomited most recently one week ago. She has been having bowel movements, recently was experiencing diarrhea which has subsided. Patient states she has had decreased appetite, but has no pain a/w eating. Patient denies bloody stools, dizziness, chest pain, headache. PMD: Dr. Saha PMHx: Hep C, cirrhosis, thrombocytopenia, breast cancer s/p R breast mastectomy on radiation therapy, DM PSHx: Cholecystectomy, appendectomy, R breast lumpectomy with node resection, Abdominal drain placement Allergies: Cipro, Macrobid, Sulfa Social: Denies smoking, alcohol, tobacco Family history: Denies Review of Systems - Constitutional Constitutional: Fever, Weakness. absent: Headache Additional comments: Decreased appetite - EENT Nose/Mouth/Throat: Dry Mouth. absent: Nasal Congestion, Nasal Discharge - Breasts Additional comments: s/p R breast lumpectomy - Cardiovascular Cardiovascular: absent: Chest Pain - Respiratory Respiratory: absent: Dyspnea, Wheezing - Gastrointestinal Gastrointestinal: Abdominal Pain (burning pain near hernia radiating across abdomen and to back). absent: Constipation, Diarrhea, Hematemesis, Nausea, Vomiting Additional comments: + Nausea and vomiting in the past week - Genitourinary Genitourinary: absent: Dysuria, Flank Pain - Musculoskeletal Musculoskeletal: absent: Stiffness, Tingling - Integumentary Integumentary: absent: Jaundice - Neurological Neurological: absent: Dizziness, Numbness - Psychiatric Psychiatric: absent: Anxiety, Depression - Hematologic/Lymphatic Hematologic: Easy Bleeding, Easy Bruising Past Patient History - Infectious Disease Hx of Infectious Diseases: None - Tetanus Immunizations Tetanus Immunization: Unknown - Past Social History Smoking Status: Never Smoked - CARDIAC Hx Cardiac Disorders: Yes Hx Hypertension: Yes - PULMONARY Hx Respiratory Disorders: No (denies) - NEUROLOGICAL Hx Neurological Disorder: No - HEENT Hx HEENT Problems: Yes (WEARS RX GLASSES) Hx Cataracts: Yes (B/L SX) Hx Glaucoma: Yes (B/L SX) - RENAL Hx Chronic Kidney Disease: No - ENDOCRINE/METABOLIC Hx Diabetes Mellitus Type 1: Yes - HEMATOLOGICAL/ONCOLOGICAL Hx Blood Disorders: Yes Hx Anemia: Yes Hx Cancer: Yes (breast) Hx Chemotherapy: Yes Hx Cirrhosis: Yes (ASCITIS) Hx Hepatitis C: Yes (from blood transfusion) - INTEGUMENTARY Hx Dermatological Problems: No - MUSCULOSKELETAL/RHEUMATOLOGICAL Hx Arthritis: Yes (knees) Hx Falls: No - GASTROINTESTINAL Hx Gastrointestinal Disorders: Yes Hx Gall Bladder Disease: Yes Hx Gastroesophageal Reflux: Yes Hx Liver Failure: Yes - GENITOURINARY/GYNECOLOGICAL Hx Genitourinary Disorders: Yes Hx Urinary Tract Infection: Yes - PSYCHIATRIC Hx Psychophysiologic Disorder: Yes (INSOMNIA) Hx Depression: No Hx Emotional Abuse: No Hx Physical Abuse: No Hx Substance Use: No - SURGICAL HISTORY Hx Appendectomy: Yes Hx Cardiac Catheterization: Yes (2011) Hx Cholecystectomy: Yes Hx Coronary Stent: Yes (2011) Hx Hysterectomy: Yes Hx Mastectomy: Yes (RIGHT) Hx Orthopedic Surgery: No - ANESTHESIA Hx Anesthesia: Yes Hx Anesthesia Reactions: No Hx Malignant Hyperthermia: No Meds Allergies/Adverse Reactions: Allergies Allergy/AdvReac Type Severity Reaction Status Date / Time ciprofloxacin Allergy Severe RASH Verified 08/10/18 18:06 nitrofurantoin Allergy Severe RASH Verified 08/10/18 18:06 Sulfa (Sulfonamide Allergy Severe RASH Verified 08/10/18 18:06 Antibiotics) - Medications Medications: Current Medications Alprazolam (Xanax) 0.25 mg PO HS PRN; Protocol PRN Reason: anxiety/insomnia Stop: 09/14/18 22:01 Last Admin: 09/07/18 23:04 Dose: 0.25 mg Amylase (Pancrease 76190 U-5000 U-10228 U) 5,000 unit PO TID [facility] Last Admin: 09/08/18 13:35 Dose: 5,000 unit Apixaban (Eliquis) 5 mg PO DAILY [facility]; Protocol Last Admin: 09/08/18 11:11 Dose: 5 mg Furosemide (Lasix) 40 mg PO DAILY [facility] Last Admin: 09/08/18 11:10 Dose: 40 mg Sodium Chloride (Sodium Chloride 0.45%) 1,000 mls @ 40 mls/hr IV .Q24H [facility] Last Admin: 09/08/18 13:35 Dose: 40 mls/hr Daptomycin 420 mg/ Sodium (Chloride) 100 mls @ 200 mls/hr IV Q24H [facility] Stop: 09/17/18 14:01 Insulin Detemir (Levemir) 20 unit SC DAILY [facility] Last Admin: 09/08/18 11:11 Dose: 20 u Insulin Human Lispro (Humalog) 10 units SC [facility] Last Admin: 09/08/18 12:34 Dose: 10 u Insulin Lispro Protam/Lispro Human (Humalog Mix 75/25) 8 units SC [facility] Last Admin: 09/08/18 08:21 Dose: 8 u Morphine Sulfate (Morphine) 2 mg IVP Q4H PRN PRN Reason: Pain, moderate (4-7) Last Admin: 09/08/18 11:49 Dose: 2 mg Nadolol (Corgard) 20 mg PO DAILY [facility] Last Admin: 09/08/18 11:10 Dose: 20 mg Ondansetron HCl (Zofran Inj) 4 mg IVP Q6H PRN PRN Reason: Nausea/Vomiting Last Admin: 09/08/18 12:38 Dose: 4 mg Sucralfate (Carafate Tab) 1 gm PO AC [facility] Last Admin: 09/08/18 12:35 Dose: 1 gm Physical Exam - Head Exam Head Exam: ATRAUMATIC, NORMAL INSPECTION - Eye Exam Eye Exam: EOMI, Normal appearance - ENT Exam ENT Exam: Mucous Membranes Dry - Respiratory Exam Respiratory Exam: Clear to Auscultation Bilateral, NORMAL BREATHING PATTERN. absent: Rales, Rhonchi, Wheezes - Cardiovascular Exam Cardiovascular Exam: REGULAR RHYTHM, +S1, +S2 - GI/Abdominal Exam GI & Abdominal Exam: Distended, Firm, Hernia (Small nonreproducible hernia in RLQ), Soft. absent: Tenderness Additional comments: Dressings over abdominal drain site CDI - Extremities Exam Extremities exam: Positive for: normal inspection. Negative for: pedal edema, tenderness - Neurological Exam Neurological exam: Alert, CN II-XII Intact, Oriented x3 - Psychiatric Exam Psychiatric exam: Normal Affect, Normal Mood - Skin Skin Exam: Dry, Intact, Normal Color, Warm Results - Vital Signs Recent Vital Signs: Last Vital Signs Temp 98.1 F 09/08/18 06:00 Pulse 68 09/08/18 11:10 Resp 18 09/08/18 06:00 BP 113/62 09/08/18 11:10 Pulse Ox 98 09/08/18 06:00 - Labs Result Diagrams: 09/08/18 07:45 09/08/18 07:45 Labs: Laboratory Results - last 24 hr 09/07/18 09/07/18 09/07/18 11:40 11:40 15:56 WBC RBC Hgb Hct MCV MCH MCHC RDW Plt Count MPV Gran % Lymph % (Auto) [place] % (Auto) Eos % (Auto) Baso % (Auto) Gran # Lymph # (Auto) [place] # (Auto) Eos # (Auto) Baso # (Auto) pO2 174 H VBG pH 7.48 H VBG pCO2 30.0 L VBG HCO3 22.3 VBG Total CO2 23.2 VBG O2 Sat (Calc) 99.9 H VBG Base Excess -0.3 L VBG Potassium 4.8 Sodium 128.0 L Chloride 101.0 Glucose 332 H Lactate 1.4 FiO2 21.0 Potassium Carbon Dioxide Anion Gap BUN Creatinine Est GFR ( Amer) Est GFR (Non-Af Amer) Random Glucose Calcium Total Bilirubin AST ALT Alkaline Phosphatase Total Protein Albumin Globulin Albumin/Globulin Ratio Procalcitonin 0.41 Venous Blood Potassium 4.8 Urine Color Yellow Urine Appearance Clear Urine pH 6.0 Ur Specific [place] 1.020 Urine Protein Negative Urine Glucose (UA) 250 H Urine Ketones Negative Urine Blood Negative Urine Nitrate Negative Urine Bilirubin Negative Urine Urobilinogen 0.2 Ur Leukocyte Esterase Negative Blood Type Antibody Screen Crossmatch BBK History Checked 09/08/18 09/08/18 09/08/18 07:45 07:45 07:45 WBC 5.3 D RBC 2.78 L Hgb 8.1 L Hct 24.6 L MCV 88.5 MCH 29.1 MCHC 32.9 RDW 15.3 H Plt Count 78 L MPV 9.2 Gran % 83.5 H Lymph % (Auto) 7.9 L [place] % (Auto) 5.4 Eos % (Auto) 3.0 Baso % (Auto) 0.2 Gran # 4.46 Lymph # (Auto) 0.4 L [place] # (Auto) 0.3 Eos # (Auto) 0.2 Baso # (Auto) 0.01 pO2 VBG pH VBG pCO2 VBG HCO3 VBG Total CO2 VBG O2 Sat (Calc) VBG Base Excess VBG Potassium Sodium 127 L Chloride 100 Glucose Lactate FiO2 Potassium 5.0 Carbon Dioxide 23 Anion Gap 10 BUN 48 H Creatinine 1.3 H Est GFR ( Amer) 49 Est GFR (Non-Af Amer) 40 Random Glucose 284 H Calcium 7.5 L Total Bilirubin 0.8 AST 32 ALT 41 Alkaline Phosphatase 97 Total Protein 5.6 L Albumin 2.2 L Globulin 3.4 Albumin/Globulin Ratio 0.7 L Procalcitonin 0.73 H Venous Blood Potassium Urine Color Urine Appearance Urine pH Ur Specific [place] Urine Protein Urine Glucose (UA) Urine Ketones Urine Blood Urine Nitrate Urine Bilirubin Urine Urobilinogen Ur Leukocyte Esterase Blood Type Antibody Screen Crossmatch BBK History Checked 09/08/18 12:15 WBC RBC Hgb Hct MCV MCH MCHC RDW Plt Count MPV Gran % Lymph % (Auto) [place] % (Auto) Eos % (Auto) Baso % (Auto) Gran # Lymph # (Auto) [place] # (Auto) Eos # (Auto) Baso # (Auto) pO2 VBG pH VBG pCO2 VBG HCO3 VBG Total CO2 VBG O2 Sat (Calc) VBG Base Excess VBG Potassium Sodium Chloride Glucose Lactate FiO2 Potassium Carbon Dioxide Anion Gap BUN Creatinine Est GFR ( Amer) Est GFR (Non-Af Amer) Random Glucose Calcium Total Bilirubin AST ALT Alkaline Phosphatase Total Protein Albumin Globulin Albumin/Globulin Ratio Procalcitonin Venous Blood Potassium Urine Color Urine Appearance Urine pH Ur Specific [place] Urine Protein Urine Glucose (UA) Urine Ketones Urine Blood Urine Nitrate Urine Bilirubin Urine Urobilinogen Ur Leukocyte Esterase Blood Type O POSITIVE Antibody Screen Negative Crossmatch See Detail BBK History Checked Patient has bt Assessment & Plan - Assessment and Plan (Free Text) Assessment: 73 year old female with extensive PMHx including Hep C/cirrhosis with thrombocytopenia and newly anemic being evaluated for 2-3 months ventral hernia in the RLQ. Plan: - Hernia non-reproducible on exam - Matti-ramsey class B (8 pts) - MELD - 12 pts - Patient has been passing gas and having BMs - Awaiting results of CT abd/pelvis with PO contrast - f/u - Further management pending imaging results Kelby Brito, PGY-1 <Tomas Giraldo - Last Filed: 09/11/18 11:46> Meds - Medications Medications: Current Medications Amylase (Pancrease 29646 U-5000 U-47493 U) 5,000 unit PO TID [facility] Last Admin: 09/11/18 10:37 Dose: 5,000 unit Apixaban (Eliquis) 5 mg PO DAILY [facility]; Protocol Last Admin: 09/11/18 10:37 Dose: 5 mg Furosemide (Lasix) 40 mg PO DAILY [facility] Last Admin: 09/11/18 10:37 Dose: 40 mg Ceftriaxone Sodium (Rocephin 2 Gm Ivpb) 2 gm in 100 mls @ 100 mls/hr IVPB DAILY [facility]; Protocol Insulin Detemir (Levemir) 20 unit SC DAILY [facility] Last Admin: 09/11/18 10:37 Dose: 20 u Insulin Human Lispro (Humalog) 10 units SC AC [facility] Last Admin: 09/11/18 08:27 Dose: 10 units Insulin Lispro Protam/Lispro Human (Humalog Mix 75/25) 8 units SC ACBD [facility] Last Admin: 09/11/18 08:28 Dose: 8 units Lorazepam (Ativan) 1 mg PO HS [facility]; Protocol Last Admin: 09/10/18 21:42 Dose: 1 mg Morphine Sulfate (Morphine) 2 mg IVP Q4H PRN PRN Reason: Pain, moderate (4-7) Last Admin: 09/10/18 23:17 Dose: 2 mg Nadolol (Corgard) 20 mg PO DAILY [facility] Last Admin: 09/10/18 10:20 Dose: 20 mg Ondansetron HCl (Zofran Inj) 4 mg IVP Q6H PRN PRN Reason: Nausea/Vomiting Last Admin: 09/08/18 12:38 Dose: 4 mg Sucralfate (Carafate Tab) 1 gm PO AC [facility] Last Admin: 09/11/18 10:37 Dose: 1 gm Results - Vital Signs Recent Vital Signs: Last Vital Signs Temp 97.8 F 09/11/18 08:31 Pulse 66 09/11/18 08:31 Resp 20 09/11/18 08:31 BP 116/68 09/11/18 10:37 Pulse Ox 100 09/11/18 08:31 - Labs Result Diagrams: 09/10/18 07:00 09/10/18 07:00 Labs: Laboratory Results - last 24 hr 09/10/18 09/10/18 15:51 20:57 POC Glucose (mg/dL) 257 H 282 H Assessment & Plan - Assessment and Plan (Free Text) Plan: This consult done under my direct supervision Mil Giraldo MD FACS
--- NOTE | 2018-09-08 18:31 | CT ---
Date of service: 09/08/2018 CT abdomen and pelvis without IV contrast Indication: abdominal wall lump Technique: Contiguous axial images of the abdomen and pelvis. Oral contrast was administered. No IV contrast given. Coronal and Sagittal reformats generated and reviewed. This CT exam was performed using 1 or more of the following dose reduction techniques: Automated exposure control, adjustment of the MAA and/or kV according to patient size, and/or use of iterative reconstruction technique. Radiation dose: Total exam DLP = 929.51 mGy-cm. Comparison: CT abdomen and pelvis with IV contrast performed 03/30/18 Findings: Right breast mastectomy. No visible consolidation, pleural effusion, or pneumothorax. Small hiatal hernia. Marked wall thickening of the distal esophagus. Nodular hepatic contour. Heterogeneous hepatic parenchyma. Cholecystectomy. Pancreatic atrophy. Nodular hypertrophy of the left adrenal gland. Unenhanced right adrenal gland appears unremarkable. Splenomegaly. No hydronephrosis or obstructing calculus identified. Large abdominal and pelvic ascites. Diffuse soft tissue edema. The stomach is nondistended. The bowel loops appear within normal limits of caliber without evidence of intestinal obstruction. There is no definite free air. Diverticulosis without CT evidence of acute diverticulitis. Appendectomy. Hysterectomy. The urinary bladder appears unremarkable. Drainage catheter within the right upper quadrant. Osseous demineralization. Degenerative changes. Scoliosis. Impression: Large abdominal/pelvic ascites. Soft tissue edema. Nodular hepatic contour. Heterogeneous hepatic parenchyma. Appearance consistent with cirrhosis. Correlate clinically. Splenomegaly. Nodular hypertrophy of the left adrenal gland. Small hiatal hernia. Marked wall thickening of the distal esophagus. Cholecystectomy. Hysterectomy. Appendectomy. Diverticulosis without CT evidence of acute diverticulitis. Right mastectomy. Drainage catheter, right upper quadrant.
--- NOTE | 2018-09-08 20:23 | CON ---
DATE: 09/08/2018 LOCATION: The patient is seen earlier today in 578, bed 2. CHIEF COMPLAINT: Positive blood cultures x1 day duration. HISTORY OF PRESENT ILLNESS: This is a 73-year-old female with a history of atrial fibrillation, hypertension, cirrhosis, diabetes mellitus, ascites, breast cancer, history of ESBL, Escherichia coli urinary tract infection. The patient notes to have right abdominal wall device right mastectomy, bilateral cataracts of which Cipro and nitro the patient was admitted to the emergency room. The patient in the emergency room, it was stated that she was having fevers and, however, she has not had any fevers in the hospital. She does have thrombocytopenia, diabetes, and she has some weakness. Generalized weakness, mild shortness of breath, minimal cough, no abdominal pain. No dysuria or frequency. No headache. No blurred vision. PAST MEDICAL HISTORY: Significant for thrombocytopenia, hypertension, cirrhosis, diabetes, breast cancer, and hyperlipidemia, chronic atrial fibrillation, hepatitis C, and coronary artery disease. SURGICAL HISTORY: Significant for right abdominal wall device, right mastectomy, and bilateral cataract. ALLERGIES: THE PATIENT IS ALLERGIC TO NITROFURANTOIN, SULFA, AND CIPRO. REVIEW OF SYSTEMS: A 14-point review of systems is performed. MEDICATIONS AT HOME: Include; insulin, Eliquis, spironolactone, lipase, sucralfate, and Altace. PHYSICAL EXAMINATION: GENERAL: The patient is in bed with no acute distress. VITAL SIGNS: Temperature of 98, blood pressure 113/60, respiratory rate 18, and heart rate of 63. She is not having fevers in the hospital. HEENT: Unremarkable. NECK: Supple. LUNGS: Decreased breath sounds. HEART: Normal S1 and S2. ABDOMEN: Soft and nontender. LABORATORY DATA: Reveals a white count of 5.3, hemoglobin of 8, and platelets of 78. Chemistry reveals the BUN of 48, creatinine of 1.3, procalcitonin is 0.73. Urinalysis is noted and microbiology reveals a gram-positive cocci in 1 bottle. It is reported as negative for enterococcus by PNA FISH, probable streptococcus is in chains. ASSESSMENT: This is a 73-year-old female with atrial fibrillation, hypertension, hepatitis C, thrombocytopenia, coronary artery disease, breast cancer, ascites, history of extended-spectrum beta-lactamase, and urinary tract infection. Admitted with fevers, although no fevers has been documented in the hospital with a gram-positive cocci bacteremia, probable streptococcus and we will start the patient on daptomycin. The patient's chest x-ray is reported to be moderate pulmonary venous congestion. The patient does not have an intravascular devices. No risk factor for gram-positive cocci bacteremia; however, if this is correct and we will follow pending identification to determine whether it is alpha-hemolytic or beta-hemolytic streptococci and we will make further recommendations. We will also order repeat blood cultures and follow closely with you. Minh Tran MD
--- NOTE | 2018-09-09 00:10 | HP ---
DATE OF EXAM: 09/08/2018 CONSULT REQUESTED BY: Dr. Saha. REASON FOR CONSULTATION: Breast cancer, anemia. HISTORY OF PRESENT ILLNESS: Ms. Markham is a 73-year-old female admitted to the hospital with lethargy, high fever of 101. She completed radiation to the left axilla at [place]. She had a relapse of breast cancer. She also has ascites related to cirrhosis of the liver. She has a tunneled catheter in the abdomen which fluid is being drained weekly by the nurse at home. She gets fluid drained every Wednesday. She also has history of hepatitis C. She is currently on daptomycin. ALLERGIES: CIPRO, NITROFURANTOIN, SULFA. CURRENT MEDICATIONS: Xanax 0.25 mg p.o. at bedtime, amylase, pancreatic enzyme t.i.d., Eliquis 5 mg daily, daptomycin, Lasix 40 mg daily Levemir, Humalog, morphine 2 mg IV every 4 hours p.r.n., 20 mg daily, Zofran every 6 hours p.r.n., IV fluids, Carafate. PAST MEDICAL HISTORY: Diabetes mellitus type 2, breast cancer. Relapsed recurrent disease, hyperlipidemia, chronic atrial fibrillation, hepatitis C, cirrhosis of liver, thrombocytopenia, coronary artery disease. PAST SURGICAL HISTORY: Mastectomy. SOCIAL HISTORY: Denies any smoking. No history of alcohol abuse. LABORATORY DATA: White count 5.3, hemoglobin 8.1, hematocrit 24.6, platelet 78, granulocytes 83%, lymphocyte 7.9%. Sodium 127, potassium 5, creatinine 1.3, total protein 5.6. UA negative. ASSESSMENT: 1. Recurrent breast cancer being treated by oncologist in [place], status post mastectomy, radiation to the axilla. 2. Cirrhosis of liver, portal hypertension. No ascites. 3. Thrombocytopenia. 4. Hepatitis C. 6. Coronary artery disease. 7. Chronic pancreatitis. 8. Anemia. PLAN: Anemia is multifactorial. We will do iron studies, B12, folate level, elevated creatinine might be related to chronic kidney disease also. We will consider blood transfusion for hemoglobin less than 8. We will order stool occult blood. She is on Eliquis. iron. B12, folate level ordered. Currently on IV antibiotic as per ID, daptomycin. Cytology of ascitic fluid done earlier is negative for metastatic disease. Thank you Dr. Saha for allowing us to participate in Ms. Markham's care. Margarita Gan MD [facility]
[2018-09-09 07:58] LABS: BASO # 0.01 K/mm3 (0.0-2.0); BASO % 0.1 % (0.0-3.0); EOS # 0.3 (0.0-0.7); GRAN # 5.31 (1.4-6.5); GRAN % 78.5 % (50.0-68.0); HEMOGLOBIN 9.6 g/dL (12.0-16.0); LYMPH # 0.3 (1.2-3.4); LYMPH % 4.6 % (22.0-35.0); MEAN CELL VOLUME 85.9 fl (80.0-105.0); MEAN CORPUSCULAR HEMOGLOBIN 28.7 pg (25.0-35.0); MEAN CORPUSCULAR HGB CONC 33.4 g/dl (31.0-37.0); MEAN PLATELET VOLUME 9.1 fl (7.0-11.0); MONO # 0.8 (0.1-0.6); MONO % 11.8 % (1.0-6.0); PLATELET COUNT 108 10^3/uL (120.0-450.0); RBC 3.34 10^6/uL (3.5-6.1); WHITE BLOOD COUNT 6.8 10^3/uL (4.5-11.0)
[2018-09-09 08:16] LABS: ALB/GLOB RATIO 0.6 (1.1-1.8); ALBUMIN 2.4 g/dL (3.0-4.8); CALCIUM 7.7 mg/dL (8.4-10.5)
[2018-09-09 08:33] LABS: EOSINOPHIL 6 % (0.0-3.0); LYMPHOCYTE 6 % (22.0-35.0); MONOCYTE 5 % (1.0-6.0); NEUTROPHIL 83 % (50.0-70.0)
[2018-09-09 08:34] LABS: PLATELET ESTIMATE LOW (NORMAL)
[2018-09-09] MEDS: Insulin Lispro 1 UNITS/0.01 ML SC SCH ×3 (08:42→17:30)
[2018-09-09] MEDS: Insulin Lispro (humaLOG) MIX 75/25(10 ml) SC SCH ×2 (08:42→18:08)
[2018-09-09 08:51] LABS: IRON 62 ug/dL (45-180)
[2018-09-09] MEDS: Morphine 2 mg/ml ISec IVP PRN ×2 (08:53→23:11)
[2018-09-09 09:00] LABS: % IRON SATURATION 27 % (20-55); TOTAL IRON BINDING CAPACITY 230 ug/dL (265-497)
[2018-09-09] MEDS: Amylase/Lipase/Protease 5,000 Units ECC PO SCH ×3 (09:32→17:29)
--- NOTE | 2018-09-09 10:26 | CP.PCM.PN ---
<Kelby Brito - Last Filed: 09/09/18 16:00> Subjective - Date & Time of Evaluation Date of Evaluation: 09/09/18 Time of Evaluation: 10:26 - Subjective Subjective: PGY-1 Surgery Progress Note for Dr. Giraldo Patient seen and examined at bedside. No acute events overnight per nursing. Patient has no new complaints at this time. Patient continues to have intermittent abdominal pain. She is having bowel movements and passing gas. Patient is tolerating heart healthy diet. Objective - Vital Signs/Intake and Output Vital Signs (last 24 hours): Temp Pulse Resp BP Pulse Ox 98.1 F 61 20 114/69 96 09/09/18 06:00 09/09/18 06:00 09/09/18 06:00 09/09/18 09:35 09/09/18 06:00 Intake and Output: 09/09/18 09/09/18 06:59 18:59 Intake Total 790 Balance 790 - Medications Medications: Current Medications Alprazolam (Xanax) 0.25 mg PO HS PRN; Protocol PRN Reason: anxiety/insomnia Stop: 09/14/18 22:01 Last Admin: 09/07/18 23:04 Dose: 0.25 mg Amylase (Pancrease 00360 U-5000 U-[id number] U) 5,000 unit PO TID [facility] Last Admin: 09/09/18 09:32 Dose: 5,000 unit Apixaban (Eliquis) 5 mg PO DAILY [facility]; Protocol Last Admin: 09/09/18 09:32 Dose: 5 mg Furosemide (Lasix) 40 mg PO DAILY [facility] Last Admin: 09/09/18 09:35 Dose: 40 mg Sodium Chloride (Sodium Chloride 0.45%) 1,000 mls @ 40 mls/hr IV .Q24H [facility] Last Admin: 09/08/18 13:35 Dose: 40 mls/hr Daptomycin 420 mg/ Sodium (Chloride) 100 mls @ 200 mls/hr IV Q24H [facility] Stop: 09/17/18 14:01 Last Admin: 09/08/18 15:32 Dose: 200 mls/hr Insulin Detemir (Levemir) 20 unit SC DAILY [facility] Last Admin: 09/08/18 11:11 Dose: 20 u Insulin Human Lispro (Humalog) 10 units SC AC [facility] Last Admin: 09/09/18 08:42 Dose: Not Given Insulin Lispro Protam/Lispro Human (Humalog Mix 75/25) 8 units SC ACBD [facility] Last Admin: 09/09/18 08:42 Dose: Not Given Morphine Sulfate (Morphine) 2 mg IVP Q4H PRN PRN Reason: Pain, moderate (4-7) Last Admin: 09/09/18 08:53 Dose: 2 mg Nadolol (Corgard) 20 mg PO DAILY [facility] Last Admin: 09/08/18 11:10 Dose: 20 mg Ondansetron HCl (Zofran Inj) 4 mg IVP Q6H PRN PRN Reason: Nausea/Vomiting Last Admin: 09/08/18 12:38 Dose: 4 mg Sucralfate (Carafate Tab) 1 gm PO AC [facility] Last Admin: 09/09/18 08:42 Dose: 1 gm - Labs Labs: 09/09/18 07:40 09/09/18 07:40 PT 16.0 SECONDS (9.4-12.5) H 09/07/18 11:40 INR 1.38 09/07/18 11:40 APTT 30.1 Seconds (25.1-36.5) 09/07/18 11:40 - Constitutional Appears: Non-toxic, No Acute Distress - Head Exam Head Exam: ATRAUMATIC, NORMAL INSPECTION - Eye Exam Eye Exam: Normal appearance - ENT Exam ENT Exam: Mucous Membranes Moist - Respiratory Exam Respiratory Exam: Clear to Ausculation Bilateral, NORMAL BREATHING PATTERN. absent: Rhonchi, Wheezes - Cardiovascular Exam Cardiovascular Exam: REGULAR RHYTHM, +S1, +S2 - GI/Abdominal Exam GI & Abdominal Exam: Soft, Tenderness (RLQ tenderness), Normal Bowel Sounds Additional comments: RLQ abdominal bulge. Mild ascitic fluid. - Extremities Exam Extremities Exam: Pedal Edema - Neurological Exam Neurological Exam: Alert, Awake, Oriented x3 - Psychiatric Exam Psychiatric exam: Normal Affect, Normal Mood - Skin Skin Exam: Dry, Intact Assessment and Plan - Assessment and Plan (Free Text) Assessment: 73 yo F with extensive PMHx including Hep C with cirrhosis, breast CA s/p R breast mastectomy on radiation therapy being evaluated by surgery for abdominal bulge, initially presumed to be a hernia, which is actually most likely a collection of ascitic fluid based on CT findings. Plan: - AFP f/u - Ascitic fluid cultures - f/u - No surgical intervention indicated at this time - Continue heart healthy diet - Surgery will continue to follow - Surgery team d/w Dr. Enzo Brito, PGY-1 <Tomas Giraldo - Last Filed: 09/11/18 11:45> Objective - Vital Signs/Intake and Output Vital Signs (last 24 hours): Temp Pulse Resp BP Pulse Ox 97.8 F 66 20 116/68 100 09/11/18 08:31 09/11/18 08:31 09/11/18 08:31 09/11/18 10:37 09/11/18 08:31 - Medications Medications: Current Medications Amylase (Pancrease 01566 U-5000 U-03935 U) 5,000 unit PO TID [facility] Last Admin: 09/11/18 10:37 Dose: 5,000 unit Apixaban (Eliquis) 5 mg PO DAILY [facility]; Protocol Last Admin: 09/11/18 10:37 Dose: 5 mg Furosemide (Lasix) 40 mg PO DAILY [facility] Last Admin: 09/11/18 10:37 Dose: 40 mg Ceftriaxone Sodium (Rocephin 2 Gm Ivpb) 2 gm in 100 mls @ 100 mls/hr IVPB DAILY [facility]; Protocol Insulin Detemir (Levemir) 20 unit SC DAILY [facility] Last Admin: 09/11/18 10:37 Dose: 20 u Insulin Human Lispro (Humalog) 10 units SC AC [facility] Last Admin: 09/11/18 08:27 Dose: 10 units Insulin Lispro Protam/Lispro Human (Humalog Mix 75/25) 8 units SC ACBD [facility] Last Admin: 09/11/18 08:28 Dose: 8 units Lorazepam (Ativan) 1 mg PO HS [facility]; Protocol Last Admin: 09/10/18 21:42 Dose: 1 mg Morphine Sulfate (Morphine) 2 mg IVP Q4H PRN PRN Reason: Pain, moderate (4-7) Last Admin: 09/10/18 23:17 Dose: 2 mg Nadolol (Corgard) 20 mg PO DAILY [facility] Last Admin: 09/10/18 10:20 Dose: 20 mg Ondansetron HCl (Zofran Inj) 4 mg IVP Q6H PRN PRN Reason: Nausea/Vomiting Last Admin: 09/08/18 12:38 Dose: 4 mg Sucralfate (Carafate Tab) 1 gm PO AC [facility] Last Admin: 09/11/18 10:37 Dose: 1 gm - Labs Labs: 09/10/18 07:00 09/10/18 07:00 PT 16.0 SECONDS (9.4-12.5) H 09/07/18 11:40 INR 1.38 09/07/18 11:40 APTT 30.1 Seconds (25.1-36.5) 09/07/18 11:40 Assessment and Plan - Assessment and Plan (Free Text) Plan: The bulge appears to be Ascites not Hernia--If C/S are negative this can be addressed with a purse string around the catheter entry site. Problem is the Blood c/s X2 positive for strep ale Giraldo MD FACS
[2018-09-09] MEDS: Insulin Detemir 100 units/ml Vial (Levemir) SC SCH (11:00)
[2018-09-09 13:00] LABS: FERRITIN 77.4 ng/mL
[2018-09-09 13:29] LABS: FOLATE 11.3 ng/mL
[2018-09-09] MEDS ORDERED: Albumin Human 25% (12.5 gm/50 ml) IV ONE ×2 (14:12→14:30)
--- NOTE | 2018-09-09 14:40 | PN ---
DATE: 09/09/2018 SUBJECTIVE: The patient is a 73-year-old seen and examined. She states she feels little better since she got blood transfusion. Complained of some abdominal discomfort. Her paracentesis is due today. PHYSICAL EXAMINATION: VITAL SIGNS: She is afebrile. Pulse 61, respirations 20, blood pressure 114/69. LUNGS: Bilateral fair airflow. No rhonchi or crackles. HEART: S1 and S2 audible. Irregular rate controlled. ABDOMEN: Soft, distended. Catheter in place. No erythema at the site of catheter. Bilateral inguinal edema. LABORATORY EXAM: WBC 6.8, hemoglobin 9.6, hematocrit 28.7, platelets 108. Chemistry; sodium 138, potassium 5.5, chloride 102, CO2 of 22, BUN 46, creatinine 1.2, blood sugar of 87. Her 2 blood cultures are positive for Gram-positive cocci. CT scan of the abdomen and pelvis was done, that shows large pelvic ascites, nodular hepatic contour, splenomegaly, small hiatal hernia, and moderately thickened distal esophagus. ASSESSMENT: 1. Bacteremia, source unknown. 2. Symptomatic anemia. 3. Cardiac cirrhosis. 4. Esophageal varices. 5. History of hypertension. 6. Hyperkalemia. 7. Chronic atrial fibrillation. 8. Insulin-dependent diabetes. PLAN: Currently, patient is on daptomycin. Patient will have albumin infusion today followed by paracentesis of 3 L of fluid. We will monitor blood sugar and followup electrolyte and CBC in the a.m. Wilda Saha MD
--- NOTE | 2018-09-09 20:50 | CP.PCM.PN ---
Subjective - Date & Time of Evaluation Date of Evaluation: 09/09/18 Time of Evaluation: 10:15 - Subjective Subjective: No fevers, not in distress, still with some abdominal discomfort. Objective - Vital Signs/Intake and Output Vital Signs (last 24 hours): Temp Pulse Resp BP Pulse Ox 98.1 F 61 20 114/69 96 09/09/18 06:00 09/09/18 06:00 09/09/18 06:00 09/09/18 09:35 09/09/18 06:00 Intake and Output: 09/09/18 09/09/18 06:59 18:59 Intake Total 790 Balance 790 - Medications Medications: Current Medications Alprazolam (Xanax) 0.25 mg PO HS PRN; Protocol PRN Reason: anxiety/insomnia Stop: 09/14/18 22:01 Last Admin: 09/07/18 23:04 Dose: 0.25 mg Amylase (Pancrease 19460 U-5000 U-54251 U) 5,000 unit PO TID [facility] Last Admin: 09/09/18 09:32 Dose: 5,000 unit Apixaban (Eliquis) 5 mg PO DAILY [facility]; Protocol Last Admin: 09/09/18 09:32 Dose: 5 mg Furosemide (Lasix) 40 mg PO DAILY [facility] Last Admin: 09/09/18 09:35 Dose: 40 mg Sodium Chloride (Sodium Chloride 0.45%) 1,000 mls @ 40 mls/hr IV .Q24H [facility] Last Admin: 09/08/18 13:35 Dose: 40 mls/hr Daptomycin 420 mg/ Sodium (Chloride) 100 mls @ 200 mls/hr IV Q24H [facility] Stop: 09/17/18 14:01 Last Admin: 09/08/18 15:32 Dose: 200 mls/hr Insulin Detemir (Levemir) 20 unit SC DAILY [facility] Last Admin: 09/08/18 11:11 Dose: 20 u Insulin Human Lispro (Humalog) 10 units SC AC [facility] Last Admin: 09/09/18 08:42 Dose: Not Given Insulin Lispro Protam/Lispro Human (Humalog Mix 75/25) 8 units SC [facility] Last Admin: 09/09/18 08:42 Dose: Not Given Morphine Sulfate (Morphine) 2 mg IVP Q4H PRN PRN Reason: Pain, moderate (4-7) Last Admin: 09/09/18 08:53 Dose: 2 mg Nadolol (Corgard) 20 mg PO DAILY [facility] Last Admin: 09/08/18 11:10 Dose: 20 mg Ondansetron HCl (Zofran Inj) 4 mg IVP Q6H PRN PRN Reason: Nausea/Vomiting Last Admin: 09/08/18 12:38 Dose: 4 mg Sucralfate (Carafate Tab) 1 gm PO AC [facility] Last Admin: 09/09/18 08:42 Dose: 1 gm - Labs Labs: 09/09/18 07:40 09/09/18 07:40 PT 16.0 SECONDS (9.4-12.5) H 09/07/18 11:40 INR 1.38 09/07/18 11:40 APTT 30.1 Seconds (25.1-36.5) 09/07/18 11:40 - Constitutional Appears: Chronically Ill - Respiratory Exam Respiratory Exam: Decreased Breath Sounds - Cardiovascular Exam Cardiovascular Exam: +S1, +S2 - GI/Abdominal Exam GI & Abdominal Exam: Soft. absent: Tenderness Assessment and Plan - Assessment and Plan (Free Text) Plan: Assessment sepsis due to gram positive cocci in chains bacteremia, consider due related to abdominal catheter, in this patient with abdominal wall hernia history of UTI with pyelonephritis with Proteus history of Sepsis R/O spontaneous bacterial peritonitis S/P paracentesis Hepatitis C with liver cirrhosis PUD GERD history of ESBL E. coli pyelonephritis Plan continue Daptomycin pending identification and sensitivities of the bacteria in the blood; follow up repeat blood cx and 2D echo discussed with Dr. Giraldo - ascitic fluid also sent for cultures overall prognosis is poor
[2018-09-10 07:50] LABS: BASO # 0.02 K/mm3 (0.0-2.0); BASO % 0.4 % (0.0-3.0); EOS # 0.2 (0.0-0.7); EOS % 4.5 % (1.5-5.0); GRAN # 3.55 (1.4-6.5); GRAN % 76.3 % (50.0-68.0); HEMOGLOBIN 9.4 g/dL (12.0-16.0); LYMPH # 0.7 (1.2-3.4); LYMPH % 13.9 % (22.0-35.0); MEAN CELL VOLUME 86.9 fl (80.0-105.0); MEAN CORPUSCULAR HEMOGLOBIN 28.7 pg (25.0-35.0); MEAN PLATELET VOLUME 9.6 fl (7.0-11.0); MONO # 0.2 (0.1-0.6); MONO % 4.9 % (1.0-6.0); RBC 3.28 10^6/uL (3.5-6.1); WHITE BLOOD COUNT 4.7 10^3/uL (4.5-11.0)
[2018-09-10 08:01] LABS: ALB/GLOB RATIO 0.7 (1.1-1.8); ALBUMIN 2.4 g/dL (3.0-4.8); ALT/SGPT 35 U/L (7-56); AST/SGOT 36 U/L (14-36); BLOOD UREA NITROGEN 45 mg/dL (7-21); CALCIUM 7.6 mg/dL (8.4-10.5); GFR NON-AFRICAN AMERICAN 55
[2018-09-10] MEDS: Insulin Lispro 1 UNITS/0.01 ML SC SCH ×3 (08:32→17:00)
[2018-09-10] MEDS: Insulin Lispro (humaLOG) MIX 75/25(10 ml) SC SCH ×2 (10:12→17:30)
[2018-09-10] MEDS: Insulin Detemir 100 units/ml Vial (Levemir) SC SCH (10:18)
[2018-09-10] MEDS: Amylase/Lipase/Protease 5,000 Units ECC PO SCH ×3 (10:19→17:31)
--- NOTE | 2018-09-10 11:54 | CP.PCM.PN ---
Subjective - Date & Time of Evaluation Date of Evaluation: 09/10/18 Time of Evaluation: 09:50 - Subjective Subjective: Still with some abdominal discomfort but a little less, no fevers overnight, no nausea. Objective - Vital Signs/Intake and Output Vital Signs (last 24 hours): Temp Pulse Resp BP Pulse Ox 98.4 F 65 20 108/55 L 98 09/09/18 14:00 09/09/18 16:00 09/09/18 16:00 09/09/18 16:00 09/09/18 16:00 Intake and Output: 09/09/18 09/10/18 18:59 06:59 Intake Total 180 Balance 180 - Medications Medications: Current Medications Alprazolam (Xanax) 0.25 mg PO HS PRN; Protocol PRN Reason: anxiety/insomnia Stop: 09/14/18 22:01 Last Admin: 09/07/18 23:04 Dose: 0.25 mg Amylase (Pancrease 37150 U-5000 U-[id number] U) 5,000 unit PO TID [facility] Last Admin: 09/09/18 17:29 Dose: 5,000 unit Apixaban (Eliquis) 5 mg PO DAILY [facility]; Protocol Last Admin: 09/09/18 09:32 Dose: 5 mg Furosemide (Lasix) 40 mg PO DAILY [facility] Last Admin: 09/09/18 09:35 Dose: 40 mg Daptomycin 420 mg/ Sodium (Chloride) 100 mls @ 200 mls/hr IV Q24H [facility] Stop: 09/17/18 14:01 Last Admin: 09/09/18 17:31 Dose: 200 mls/hr Insulin Detemir (Levemir) 20 unit SC DAILY [facility] Last Admin: 09/09/18 11:00 Dose: Not Given Insulin Human Lispro (Humalog) 10 units SC AC [facility] Last Admin: 09/09/18 17:30 Dose: 10 units Insulin Lispro Protam/Lispro Human (Humalog Mix 75/25) 8 units SC [facility] Last Admin: 09/09/18 18:08 Dose: 8 units Morphine Sulfate (Morphine) 2 mg IVP Q4H PRN PRN Reason: Pain, moderate (4-7) Last Admin: 09/09/18 08:53 Dose: 2 mg Nadolol (Corgard) 20 mg PO DAILY [facility] Last Admin: 09/09/18 11:00 Dose: Not Given Ondansetron HCl (Zofran Inj) 4 mg IVP Q6H PRN PRN Reason: Nausea/Vomiting Last Admin: 09/08/18 12:38 Dose: 4 mg Sucralfate (Carafate Tab) 1 gm PO AC [facility] Last Admin: 09/09/18 17:30 Dose: 1 gm - Labs Labs: 09/09/18 07:40 09/09/18 07:40 PT 16.0 SECONDS (9.4-12.5) H 09/07/18 11:40 INR 1.38 09/07/18 11:40 APTT 30.1 Seconds (25.1-36.5) 09/07/18 11:40 - Constitutional Appears: Chronically Ill - Head Exam Head Exam: NORMAL INSPECTION - Respiratory Exam Respiratory Exam: Decreased Breath Sounds - Cardiovascular Exam Cardiovascular Exam: +S1, +S2 - GI/Abdominal Exam GI & Abdominal Exam: Soft. absent: Tenderness Additional comments: catheter in place Assessment and Plan - Assessment and Plan (Free Text) Plan: Assessment sepsis due to gram positive cocci in chains bacteremia, consider due related to abdominal catheter, in this patient with abdominal wall hernia history of UTI with pyelonephritis with Proteus history of Sepsis R/O spontaneous bacterial peritonitis S/P paracentesis Hepatitis C with liver cirrhosis PUD GERD history of ESBL E. coli pyelonephritis Plan continue Daptomycin pending identification and sensitivities of the bacteria in the blood; follow up repeat blood cx and 2D echo discussed with Dr. Giraldo - ascitic fluid has been sent for cultures and awaiting results - Surgery monitoring the hernia overall prognosis is poor
--- NOTE | 2018-09-10 21:17 | CARD ---
APPROVED REPORT Date of service: 09/10/2018 EXAM: Two-dimensional and M-mode echocardiogram with Doppler and color Doppler. INDICATION R/O VEGE 2D DIMENSIONS Left Atrium (2D)3.8 (1.6-4.0cm)IVSd1.2 (0.7-1.1cm) LVDd3.7 (3.9-5.9cm)PWd1.2 (0.7-1.1cm) LVDs2.6 (2.5-4.0cm)FS (%) 29.7 % LVEF (%)57.7 (>50%) M-Mode DIMENSIONS Aortic Root2.60 (2.2-3.7cm)Aortic Cusp Exc.2.00 (1.5-2.0cm) Aortic Valve AoV Peak Ayhzcemn790.0cm/Sandra Peak GR.11mmHg Mitral Valve MV E [id number]/s TDI Lateral E' Peak V7.70cm/sMedial E' Peak V7.21cm/sE/Lateral E'14.8 E/Medial E'15.8 Tricuspid Valve TR Peak [id number] [id number] Peak Gr.26mmHg [id number] LEFT VENTRICLE The left ventricle is normal size. There is normal left ventricular wall thickness. The left ventricular function is normal. The left ventricular ejection fraction is within the normal range. There is normal LV segmental wall motion. RIGHT VENTRICLE The right ventricle is normal size. There is normal right ventricular wall thickness. The right ventricular systolic function is normal. ATRIA The left atrium size is normal. The right atrium size is normal. AORTIC VALVE The aortic valve is thickened but opens well. There is trace aortic regurgitation. No aortic regurgitation is present. There is no aortic valvular vegetation. MITRAL VALVE The mitral valve is mildly thickened. There is no mitral valve regurgitation noted. There is no mitral valve stenosis. TRICUSPID VALVE There is mild tricuspid regurgitation. There is mild pulmonary hypertension. PULMONIC VALVE There is mild pulmonic valvular regurgitation. GREAT VESSELS The aortic root is normal in size. PERICARDIAL EFFUSION There is small pleural effusion. <Conclusion> The left ventricle is normal size. There is normal left ventricular wall thickness. The left ventricular function is normal. The left ventricular ejection fraction is within the normal range. There is normal LV segmental wall motion. There is mild tricuspid regurgitation. There is mild pulmonary hypertension. No valvular vegitation seen
[2018-09-10] MEDS: Morphine 2 mg/ml ISec IVP PRN (23:17)
[2018-09-11] MEDS: Insulin Lispro 1 UNITS/0.01 ML SC SCH ×3 (08:27→17:43)
[2018-09-11] MEDS: Insulin Lispro (humaLOG) MIX 75/25(10 ml) SC SCH ×2 (08:28→17:49)
--- NOTE | 2018-09-11 09:03 | CP.PCM.PCO ---
Physician Communication Note - Physician Communication Note Physician Communication Note: Blood c/s:Strep Mitis/Ascites neg 24Hr-Pending today?
[2018-09-11] MEDS: Insulin Detemir 100 units/ml Vial (Levemir) SC SCH (10:37)
[2018-09-11] MEDS: Amylase/Lipase/Protease 5,000 Units ECC PO SCH ×3 (10:37→17:43)
[2018-09-11] MEDS ORDERED: cefTRIAXone (Rocephin) 2 gm Inj IVPB STA (13:12)
[2018-09-11] MEDS: cefTRIAXone 2 GM IN NS 2 GM/100 ML BAG IVPB SCH (14:25)
--- NOTE | 2018-09-11 17:03 | CP.PCM.PN ---
Subjective - Date & Time of Evaluation Date of Evaluation: 09/11/18 Time of Evaluation: 11:35 - Subjective Subjective: Feels weak and tired, no fevers. Objective - Vital Signs/Intake and Output Vital Signs (last 24 hours): Temp Pulse Resp BP Pulse Ox 98.4 F 63 20 120/68 99 09/10/18 07:00 09/10/18 10:20 09/10/18 07:00 09/10/18 10:20 09/10/18 07:00 - Medications Medications: Current Medications Alprazolam (Xanax) 0.25 mg PO HS PRN; Protocol PRN Reason: anxiety/insomnia Stop: 09/14/18 22:01 Last Admin: 09/07/18 23:04 Dose: 0.25 mg Amylase (Pancrease 45020 U-5000 U-85793 U) 5,000 unit PO TID [facility] Last Admin: 09/10/18 10:19 Dose: 5,000 unit Apixaban (Eliquis) 5 mg PO DAILY [facility]; Protocol Last Admin: 09/10/18 10:20 Dose: 5 mg Furosemide (Lasix) 40 mg PO DAILY [facility] Last Admin: 09/10/18 10:20 Dose: 40 mg Daptomycin 420 mg/ Sodium (Chloride) 100 mls @ 200 mls/hr IV Q24H [facility] Stop: 09/17/18 14:01 Last Admin: 09/09/18 17:31 Dose: 200 mls/hr Insulin Detemir (Levemir) 20 unit SC DAILY [facility] Last Admin: 09/10/18 10:18 Dose: 20 u Insulin Human Lispro (Humalog) 10 units SC [facility] Last Admin: 09/10/18 08:32 Dose: Not Given Insulin Lispro Protam/Lispro Human (Humalog Mix 75/25) 8 units SC [facility] Last Admin: 09/10/18 10:12 Dose: Not Given Morphine Sulfate (Morphine) 2 mg IVP Q4H PRN PRN Reason: Pain, moderate (4-7) Last Admin: 09/09/18 23:11 Dose: 2 mg Nadolol (Corgard) 20 mg PO DAILY [facility] Last Admin: 09/10/18 10:20 Dose: 20 mg Ondansetron HCl (Zofran Inj) 4 mg IVP Q6H PRN PRN Reason: Nausea/Vomiting Last Admin: 12/13/18 12:38 Dose: 4 mg Sucralfate (Carafate Tab) 1 gm PO AC [facility] Last Admin: 09/10/18 08:37 Dose: 1 gm - Labs Labs: 09/10/18 07:00 09/10/18 07:00 PT 16.0 SECONDS (9.4-12.5) H 09/07/18 11:40 INR 1.38 09/07/18 11:40 APTT 30.1 Seconds (25.1-36.5) 09/07/18 11:40 - Constitutional Appears: Chronically Ill - Neck Exam Neck Exam: absent: Meningismus - Respiratory Exam Respiratory Exam: Decreased Breath Sounds - Cardiovascular Exam Cardiovascular Exam: +S1, +S2 - GI/Abdominal Exam GI & Abdominal Exam: Soft. absent: Tenderness Additional comments: abdominal drain in place Assessment and Plan - Assessment and Plan (Free Text) Plan: Assessment sepsis due to Strep mitis bacteremia, R/O related to abdominal catheter, in this patient with abdominal wall hernia history of UTI with pyelonephritis with Proteus history of Sepsis R/O spontaneous bacterial peritonitis S/P paracentesis Hepatitis C with liver cirrhosis PUD GERD history of ESBL E. coli pyelonephritis Plan changed antibiotics to Rocephin; repeat blood cx and 2D echo are negative - will need at least 2 weeks of antibiotics discussed with Dr. Giraldo - ascitic fluid has been sent for cultures and awaiting results - Surgery monitoring the hernia overall prognosis is poor
--- NOTE | 2018-09-11 21:45 | PN ---
DATE: 09/11/2018 SUBJECTIVE: Patient is 73-year-old seen and examined, lying in bed, complain of feeling , tired, sleepy, no energy. PHYSICAL EXAMINATION: VITAL SIGNS: She is afebrile. Pulse 70, respiration 20, blood pressure 124/85. LUNGS: Bilateral fair airflow. No rhonchi or crackles. HEART: S1 and S2 audible. Irregular rate controlled. ABDOMEN: Soft. No rebound or guarding. NEUROLOGIC: She is awake and alert,able to communicate. Has generalized weakness. No energy. EXTREMITIES: Bilateral leg, no edema. LABORATORY EXAM: WBC , hemoglobin 9.4, hematocrit 28.5, platelets of 101. Chemistry: Blood sugar is 152. Repeat blood cultures are negative. First 2 bottles grows Streptococcus mitis. Echocardiogram is negative for vegetation. ASSESSMENT: 1. Generalized weakness. 2. Status post Streptococcus mitis bacteremia. 3. Hepatitis C. 4. Cardiac cirrhosis. 5. Cirrhosis of liver. 6. Peptic ulcer disease. 7. Pancytopenia, status post blood transfusion. 8. Poor IV access. PLAN: PICC line by Dr. Kenny Munoz, since she has poor peripheral access. We will monitor blood sugar. Continue her on Eliquis . CBC and CMP in a.m. Wilda Saha MD
[2018-09-12 07:38] LABS: BASO # 0.03 K/mm3 (0.0-2.0); BASO % 0.8 % (0.0-3.0); EOS # 0.2 (0.0-0.7); EOS % 4.4 % (1.5-5.0); GRAN # 2.65 (1.4-6.5); GRAN % 67.8 % (50.0-68.0); HEMOGLOBIN 9.9 g/dL (12.0-16.0); LYMPH # 0.8 (1.2-3.4); LYMPH % 20.3 % (22.0-35.0); MEAN CELL VOLUME 87.5 fl (80.0-105.0); MEAN CORPUSCULAR HEMOGLOBIN 28.8 pg (25.0-35.0); MEAN CORPUSCULAR HGB CONC 32.9 g/dl (31.0-37.0); MEAN PLATELET VOLUME 9.3 fl (7.0-11.0); MONO # 0.3 (0.1-0.6); MONO % 6.7 % (1.0-6.0); RBC 3.44 10^6/uL (3.5-6.1); RED CELL DISTRIBUTION WIDTH 15.2 % (11.5-14.5); WHITE BLOOD COUNT 3.9 10^3/uL (4.5-11.0)
[2018-09-12 07:52] LABS: ALB/GLOB RATIO 0.7 (1.1-1.8); ALBUMIN 2.4 g/dL (3.0-4.8); ALT/SGPT 30 U/L (7-56); AST/SGOT 30 U/L (14-36); BLOOD UREA NITROGEN 40 mg/dL (7-21); CALCIUM 8.2 mg/dL (8.4-10.5); GFR NON-AFRICAN AMERICAN 55
--- NOTE | 2018-09-12 08:45 | PN ---
DATE: 09/10/2018 SUBJECTIVE: The patient is a 73-year-old, seen and examined, sitting in chair, seems to be comfortable. Complain of pain in the mid back, hepatitis seems to be doing little better. Weakness has improved somewhere. PHYSICAL EXAMINATION VITAL SIGNS: She is afebrile, pulse 66, respirations 20, blood pressure 120/68. LUNGS: Bilateral fair airflow, decreased at bases. HEART: S1, S2 audible. Regular rate, controlled. ABDOMEN: Soft, nontender. Has palpable discomfort in the upper lumbosacral area. She has lump on the right paraumbilical area. LABORATORY DATA: WBC 4.7, hemoglobin 9.4, hematocrit 28.5, platelets 101. Chemistry; sodium 129, potassium 5.1, chloride 103, CO2 of 24, BUN 45, creatinine 1.0, blood sugar of 257. Her abdominal fluid has no growth. Urine cultures are negative. Repeat blood culture on 09/08/2018 is negative. One bottle and second bottle is positive for Staphylococcus aureus. Echocardiogram is pending. ASSESSMENT AND PLAN: 1. Staphylococcus aureus bacteremia. 2. Generalize weakness. 3. Hepatitis C. 4. Cirrhosis of liver, on intermittent paracentesis. 5. Esophageal varices. 6. Chronic atrial fibrillation. 7. Coronary artery disease, status post angioplasty. PLAN: Currently, the patient is on daptomycin. We will monitor her blood sugar. Continue her on nadolol, Carafate and Eliquis. Blood sugar is being monitored. Analgesic as needed. Follow up patient in a.m. Requesting for sleeping pills, does not do well with Xanax or Ambien, so we will try her on Ativan at bedtime. Wilda Saha MD
[2018-09-12] MEDS: Amylase/Lipase/Protease 5,000 Units ECC PO SCH ×3 (09:07→17:21)
[2018-09-12] MEDS: Insulin Lispro 1 UNITS/0.01 ML SC SCH ×3 (09:08→17:21)
[2018-09-12] MEDS: Insulin Lispro (humaLOG) MIX 75/25(10 ml) SC SCH ×2 (09:08→17:22)
[2018-09-12] MEDS: cefTRIAXone 2 GM IN NS 2 GM/100 ML BAG IVPB SCH (10:00)
[2018-09-12] MEDS: Insulin Detemir 100 units/ml Vial (Levemir) SC SCH (11:00)
--- NOTE | 2018-09-12 13:13 | CP.PCM.PN ---
Subjective - Date & Time of Evaluation Date of Evaluation: 09/12/18 Time of Evaluation: 09:45 - Subjective Subjective: Still feels weak and tired, no fevers. Objective - Vital Signs/Intake and Output Vital Signs (last 24 hours): Temp Pulse Resp BP Pulse Ox 97.8 F 70 20 124/85 100 09/11/18 08:31 09/11/18 12:17 09/11/18 08:31 09/11/18 12:17 09/11/18 08:31 - Medications Medications: Current Medications Amylase (Pancrease 80578 U-5000 U-72054 U) 5,000 unit PO TID [facility] Last Admin: 09/11/18 14:21 Dose: 5,000 unit Apixaban (Eliquis) 5 mg PO DAILY [facility]; Protocol Last Admin: 09/11/18 10:37 Dose: 5 mg Furosemide (Lasix) 40 mg PO DAILY [facility] Last Admin: 09/11/18 10:37 Dose: 40 mg Ceftriaxone Sodium (Rocephin 2 Gm Ivpb) 2 gm in 100 mls @ 100 mls/hr IVPB DAILY [facility]; Protocol Last Admin: 09/11/18 14:25 Dose: Not Given Insulin Detemir (Levemir) 20 unit SC DAILY [facility] Last Admin: 09/11/18 10:37 Dose: 20 u Insulin Human Lispro (Humalog) 10 units SC [facility] Last Admin: 09/11/18 12:16 Dose: 10 units Insulin Lispro Protam/Lispro Human (Humalog Mix 75/25) 8 units SC [facility] Last Admin: 09/11/18 08:28 Dose: 8 units Lorazepam (Ativan) 1 mg PO HS [facility]; Protocol Last Admin: 09/10/18 21:42 Dose: 1 mg Morphine Sulfate (Morphine) 2 mg IVP Q4H PRN PRN Reason: Pain, moderate (4-7) Last Admin: 09/10/18 23:17 Dose: 2 mg Nadolol (Corgard) 20 mg PO DAILY [facility] Last Admin: 09/11/18 12:17 Dose: 20 mg Ondansetron HCl (Zofran Inj) 4 mg IVP Q6H PRN PRN Reason: Nausea/Vomiting Last Admin: 09/08/18 12:38 Dose: 4 mg Sucralfate (Carafate Tab) 1 gm PO AC [facility] Last Admin: 12/16/18 10:37 Dose: 1 gm - Labs Labs: 09/10/18 07:00 09/10/18 07:00 PT 16.0 SECONDS (9.4-12.5) H 09/07/18 11:40 INR 1.38 09/07/18 11:40 APTT 30.1 Seconds (25.1-36.5) 09/07/18 11:40 - Constitutional Appears: Chronically Ill - Head Exam Head Exam: NORMAL INSPECTION - Respiratory Exam Respiratory Exam: Decreased Breath Sounds - Cardiovascular Exam Cardiovascular Exam: +S1, +S2 - GI/Abdominal Exam GI & Abdominal Exam: Soft. absent: Tenderness Assessment and Plan - Assessment and Plan (Free Text) Plan: Assessment sepsis due to Strep mitis bacteremia, R/O related to abdominal catheter, in this patient with abdominal wall hernia history of UTI with pyelonephritis with Proteus history of Sepsis R/O spontaneous bacterial peritonitis S/P paracentesis Hepatitis C with liver cirrhosis PUD GERD history of ESBL E. coli pyelonephritis Plan changed antibiotics to Rocephin; repeat blood cx and 2D echo are negative - will need at least 2 weeks of antibiotics - can switch to PO Vantin as discussed with Dr. Saha discussed with Dr. Giraldo - ascitic fluid has been sent for cultures and it spain s no growth - Surgery monitoring the hernia overall prognosis is poor
--- NOTE | 2018-09-12 13:35 | CP.PCM.PCO ---
Physician Communication Note - Physician Communication Note Physician Communication Note: Ascites No Growth/Kirby;leave collection alone- Treat S Enedelia
[2018-09-12] MEDS ORDERED: Oxycodone/Acetaminophen 5/325 mg Tab PO ONE (22:43)
--- NOTE | 2018-09-13 00:39 | PN ---
DATE: 09/12/2018 SUBJECTIVE: The patient is 73 years old. Seen and examined. Extremely exhausted. Looks pale, sleepy, but arousable. Has no energy to walk. Poor oral intake. PHYSICAL EXAMINATION: VITAL SIGNS: She is afebrile, pulse 70, respiration 20, and blood pressure 150/67. LUNGS: Bilateral fair airflow. HEART: S1 and S2 audible. ABDOMEN: Soft. Nontender. No rebound. No guarding. NEUROLOGIC: The patient is sleepy, but arousable. She has abdominal distention with ascites again. EXTREMITIES: Bilateral legs, no edema. LABORATORY EXAMINATION: WBC 3.9, hemoglobin 9.9, hematocrit 30.1, and platelets 77. Chemistry: Sodium 136, potassium 4.7, chloride 106, CO2 of 25, BUN 40, creatinine 1, blood sugar 279. ASSESSMENT AND PLAN: 1. Streptococcus mitis bacteremia. 2. Cirrhosis of liver. 3. Hepatitis C. 4. History of hypertension, currently running hypotensive. 5. Thrombocytopenia. 6. Chronic atrial fibrillation. 7. Coronary artery disease. 8. Chronic pancreatic insufficiency. The patient has poor peripheral access. Awaiting peripherally inserted central catheter line placement. Needs physical therapy evaluation. Probably going to need subacute rehabilitation. I will order for ammonia level. Complete blood count and comprehensive metabolic panel in a.m. Wilda Saha MD
[2018-09-13 08:30] VITALS: RESP 18
[2018-09-13] MEDS: Insulin Lispro (humaLOG) MIX 75/25(10 ml) SC SCH ×2 (08:30→17:14)
[2018-09-13] MEDS: Insulin Lispro 1 UNITS/0.01 ML SC SCH ×3 (08:31→17:13)
--- NOTE | 2018-09-13 09:37 | PCM.FALL ---
Post Fall Progress Note - Post Fall Fall Date: 09/13/18 Fall Time: 08:55 Description of Fall: 73 year old female with PMH Hep C, cirrhosis with ascites s/p IR drain placement, thrombocytopenia, DM, breast CA s/p R breast mastectomy, had a fall while in the bathroom. She states that she may have missed a step, and landed on her knees on the floor, instead of the commode. She denies hitting her head. Currently denies any pain of tenderness, chest pain, sob, palpitations, diaphoresis, nausea, vomiting, urinary symptoms, focal weakness, syncope, LOC, . She states that she has been weak since receiving radiation. She also mentions a fall at home few days ago, where she hit her chest. Patient reports positional chest wall pain with sitting up. - Post Fall Exam Vital Sign: Temp Pulse Resp BP Pulse Ox 98.3 F 72 18 122/71 96 09/13/18 07:00 09/13/18 07:00 09/13/18 07:00 09/13/18 07:00 09/13/18 07:00 Skull Exam: Negative for: Scalp wound, Scalp hematoma, Scalp depression, Ridge in skull Eye Exam: Positive for: Pupils equal, Pupils reactive Ear Exam: Negative for: Discharge, Bleeding Nose Exam: Negative for: Discharge, Bleeding Skin Exam: Negative for: Colour, Lacerations, Grazes, Bruising Mouth Exam: Negative for: Tongue bitten, Teeth dislodge Neck Exam: Negative for: Tenderness, Tingling, Weakness Spinal Exam: Negative for: Tenderness, Tingling, Weakness Chest Exam: Negative for: Difficulty breathing, Tenderness in collar bones, Tenderness in ribs Abdomen Exam: Negative for: Tenderness Pelvic Exam: Negative for: Tenderness, Hematuria Arm Exam: Negative for: Deformity, Alteration in range of movement Leg Exam: Negative for: Deformity, Alteration in range of movement Impression/Plan: 73 year old female with PMH Hep C, afib on elliquis, cirrhosis with ascites s/p IR drain placement, thrombocytopenia, DM, breast CA s/p R breast mastectomy, had an unwitnessed fall while in the bathroom: - trop, EKG - high risk fall precautions, discussed with nurse - PT bonnieal, will likely need walker (as she uses at home) - Discussed with PMD Dr Saha. Adriana Hurst, PGY2
[2018-09-13] MEDS: Amylase/Lipase/Protease 5,000 Units ECC PO SCH ×3 (10:19→17:13)
[2018-09-13] MEDS: Insulin Detemir 100 units/ml Vial (Levemir) SC SCH (11:09)
--- NOTE | 2018-09-13 11:37 | CARD ---
APPROVED REPORT Date of service: 09/13/2018 EKG Measurement Heart [id number] <Conclusion> Aubrie Perry IRBBB LAD No change
[2018-09-13] MEDS: Oxycodone/Acetaminophen 5/325 mg Tab PO PRN ×2 (15:48→21:42)
--- NOTE | 2018-09-13 16:02 | CP.PCM.PN ---
Subjective - Date & Time of Evaluation Date of Evaluation: 09/13/18 Time of Evaluation: 08:50 - Subjective Subjective: Still feels weak and tired, no abdominal pain, no fevers. Objective - Vital Signs/Intake and Output Vital Signs (last 24 hours): Temp Pulse Resp BP Pulse Ox 98.7 F 70 20 150/67 100 09/12/18 06:00 09/12/18 06:00 09/12/18 06:00 09/12/18 09:07 09/12/18 06:00 Intake and Output: 09/12/18 09/12/18 06:59 18:59 Intake Total 620 Balance 620 - Medications Medications: Current Medications Amylase (Pancrease 24713 U-5000 U-17602 U) 5,000 unit PO TID [facility] Last Admin: 09/12/18 09:07 Dose: 5,000 unit Apixaban (Eliquis) 5 mg PO DAILY [facility]; Protocol Last Admin: 09/12/18 09:06 Dose: 5 mg Furosemide (Lasix) 40 mg PO DAILY [facility] Last Admin: 09/12/18 09:07 Dose: 40 mg Ceftriaxone Sodium (Rocephin 2 Gm Ivpb) 2 gm in 100 mls @ 100 mls/hr IVPB DAILY [facility]; Protocol Last Admin: 09/11/18 14:25 Dose: Not Given Insulin Detemir (Levemir) 20 unit SC DAILY [facility] Last Admin: 09/11/18 10:37 Dose: 20 u Insulin Human Lispro (Humalog) 10 units SC AC [facility] Last Admin: 09/12/18 12:07 Dose: 10 units Insulin Lispro Protam/Lispro Human (Humalog Mix 75/25) 8 units SC ACBD [facility] Last Admin: 09/12/18 09:08 Dose: 8 units Lorazepam (Ativan) 1 mg PO HS [facility]; Protocol Last Admin: 09/11/18 22:00 Dose: 1 mg Nadolol (Corgard) 20 mg PO DAILY [facility] Last Admin: 09/12/18 09:07 Dose: 20 mg Ondansetron HCl (Zofran Inj) 4 mg IVP Q6H PRN PRN Reason: Nausea/Vomiting Last Admin: 09/08/18 12:38 Dose: 4 mg Sucralfate (Carafate Tab) 1 gm PO AC [facility] Last Admin: 09/12/18 12:07 Dose: 1 gm - Labs Labs: 09/12/18 07:10 09/12/18 07:10 PT 16.0 SECONDS (9.4-12.5) H 09/07/18 11:40 INR 1.38 09/07/18 11:40 APTT 30.1 Seconds (25.1-36.5) 09/07/18 11:40 - Constitutional Appears: Chronically Ill - Head Exam Head Exam: NORMAL INSPECTION - Neck Exam Neck Exam: absent: Meningismus - Respiratory Exam Respiratory Exam: Decreased Breath Sounds - Cardiovascular Exam Cardiovascular Exam: +S1, +S2 - GI/Abdominal Exam GI & Abdominal Exam: Soft. absent: Tenderness Additional comments: abdominal catheter in place Assessment and Plan - Assessment and Plan (Free Text) Plan: Assessment sepsis due to Strep mitis bacteremia, source unclear in this patient with abdominal catheter, and abdominal wall hernia history of UTI with pyelonephritis with Proteus history of Sepsis R/O spontaneous bacterial peritonitis S/P paracentesis Hepatitis C with liver cirrhosis PUD GERD history of ESBL E. coli pyelonephritis Plan continue Rocephin; repeat blood cx and 2D echo are negative - will need at least 2 weeks of antibiotics - can switch to PO Vantin as discussed with Dr. Saha discussed with Dr. Giraldo - ascitic fluid has been sent for cultures and it has no growth - Surgery monitoring the hernia overall prognosis is poor
--- NOTE | 2018-09-13 18:59 | PN ---
DATE: 09/13/2018 SUBJECTIVE: The patient is 73-year-old, complained of extreme weakness. Feel tired and this morning, she fell and she misjudged that she is going to sit on commode, but actually she missed it and she fell on the floor, was able to ambulate, but complain of extreme weakness, dizziness, and difficulty walking. PHYSICAL EXAMINATION VITAL SIGNS: She is afebrile, pulse 68, respirations 18, blood pressure 93/54. LUNGS: Bilateral fair airflow. No rhonchi or crackle. HEART: S1 and S2 audible. Irregular, rate controlled. ABDOMEN: Soft, nontender. No rebound. No guarding. NEUROLOGIC: The patient is awake, alert, oriented, and able to communicate. LABORATORY EXAM: Blood sugar is 348. ASSESSMENT AND PLAN: 1. Generalized weakness. 2. Deconditioning and difficulty walking. 3. Gastritis. 4. Esophageal varices. 5. Hepatitis C. 6. Cirrhosis of liver. 7. Insulin-dependent diabetes. 8. Chronic atrial fibrillation. 9. Coronary artery disease status post angioplasty. PLAN: We will continue the patient on current medication. We will discuss with the social service. The patient needs subacute rehab and we will follow up CBC and CMP in a.m. Wilda Saha MD
[2018-09-13] MEDS: cefTRIAXone 2 GM IN NS 2 GM/100 ML BAG IVPB SCH (19:14)
[2018-09-14 08:00] LABS: BASO # 0.03 K/mm3 (0.0-2.0); BASO % 0.4 % (0.0-3.0); EOS # 0.4 (0.0-0.7); EOS % 5.8 % (1.5-5.0); GRAN % 74.8 % (50.0-68.0); HEMOGLOBIN 11.4 g/dL (12.0-16.0); LYMPH # 0.9 (1.2-3.4); LYMPH % 13.8 % (22.0-35.0); MEAN CELL VOLUME 89.4 fl (80.0-105.0); MEAN CORPUSCULAR HEMOGLOBIN 28.7 pg (25.0-35.0); MEAN CORPUSCULAR HGB CONC 32.1 g/dl (31.0-37.0); MEAN PLATELET VOLUME 9.7 fl (7.0-11.0); MONO # 0.4 (0.1-0.6); MONO % 5.2 % (1.0-6.0); RBC 3.97 10^6/uL (3.5-6.1); RED CELL DISTRIBUTION WIDTH 15.2 % (11.5-14.5); WHITE BLOOD COUNT 6.7 10^3/uL (4.5-11.0)
[2018-09-14] MEDS: Insulin Lispro 1 UNITS/0.01 ML SC SCH ×3 (08:40→17:49)
[2018-09-14] MEDS: Insulin Lispro (humaLOG) MIX 75/25(10 ml) SC SCH ×2 (08:42→17:49)
[2018-09-14 09:21] LABS: ALB/GLOB RATIO 0.7 (1.1-1.8); ALBUMIN 2.9 g/dL (3.0-4.8); CALCIUM 8.7 mg/dL (8.4-10.5)
[2018-09-14] MEDS: cefTRIAXone 2 GM IN NS 2 GM/100 ML BAG IVPB SCH (09:49)
[2018-09-14] MEDS: Insulin Detemir 100 units/ml Vial (Levemir) SC SCH (09:49)
[2018-09-14] MEDS: Oxycodone/Acetaminophen 5/325 mg Tab PO PRN ×3 (09:50→22:49)
[2018-09-14] MEDS: Amylase/Lipase/Protease 5,000 Units ECC PO SCH ×3 (09:50→17:49)
--- NOTE | 2018-09-14 16:18 | CP.PCM.PN ---
Subjective - Date & Time of Evaluation Date of Evaluation: 09/15/18 Time of Evaluation: 09:20 - Subjective Subjective: Still feels weak and tired, no fevers. Objective - Vital Signs/Intake and Output Vital Signs (last 24 hours): Temp Pulse Resp BP Pulse Ox 97.8 F 69 18 109/74 100 09/14/18 14:00 09/14/18 14:00 09/14/18 14:00 09/14/18 14:00 09/14/18 14:00 Intake and Output: 09/14/18 09/14/18 06:59 18:59 Intake Total 120 Balance 120 - Medications Medications: Current Medications Amylase (Pancrease 33869 U-5000 U-95747 U) 5,000 unit PO TID [facility] Last Admin: 09/14/18 14:23 Dose: 5,000 unit Apixaban (Eliquis) 5 mg PO DAILY [facility]; Protocol Last Admin: 09/14/18 09:50 Dose: 5 mg Furosemide (Lasix) 40 mg PO DAILY [facility] Last Admin: 09/14/18 09:50 Dose: 40 mg Ceftriaxone Sodium (Rocephin 2 Gm Ivpb) 2 gm in 100 mls @ 100 mls/hr IVPB DAILY [facility]; Protocol Last Admin: 09/14/18 09:49 Dose: 100 mls/hr Insulin Detemir (Levemir) 20 unit SC DAILY [facility] Last Admin: 09/14/18 09:49 Dose: 20 u Insulin Human Lispro (Humalog) 10 units SC AC [facility] Last Admin: 09/14/18 11:57 Dose: 10 units Insulin Lispro Protam/Lispro Human (Humalog Mix 75/25) 8 units SC ACBD [facility] Last Admin: 09/14/18 08:42 Dose: 8 units Lorazepam (Ativan) 1 mg PO HS [facility]; Protocol Last Admin: 09/13/18 23:04 Dose: 1 mg Nadolol (Corgard) 20 mg PO DAILY [facility] Last Admin: 09/14/18 09:49 Dose: 20 mg Ondansetron HCl (Zofran Inj) 4 mg IVP Q6H PRN PRN Reason: Nausea/Vomiting Last Admin: 09/08/18 12:38 Dose: 4 mg Oxycodone/Acetaminophen (Percocet 5/325 Mg Tab) 1 tab PO Q6H PRN PRN Reason: Pain, moderate (4-7) Stop: 09/16/18 15:13 Last Admin: 09/14/18 09:50 Dose: 1 tab Sucralfate (Carafate Tab) 1 gm PO AC [facility] Last Admin: 09/14/18 11:57 Dose: 1 gm - Labs Labs: 09/14/18 07:30 09/14/18 07:30 PT 16.0 SECONDS (9.4-12.5) H 09/07/18 11:40 INR 1.38 09/07/18 11:40 APTT 30.1 Seconds (25.1-36.5) 09/07/18 11:40 - Constitutional Appears: Chronically Ill - Head Exam Head Exam: NORMAL INSPECTION - Respiratory Exam Respiratory Exam: Decreased Breath Sounds - Cardiovascular Exam Cardiovascular Exam: +S1, +S2 - GI/Abdominal Exam GI & Abdominal Exam: Soft. absent: Tenderness Assessment and Plan - Assessment and Plan (Free Text) Plan: Assessment sepsis due to Strep mitis bacteremia, source unclear in this patient with abdominal catheter, and abdominal wall hernia history of UTI with pyelonephritis with Proteus history of Sepsis R/O spontaneous bacterial peritonitis S/P paracentesis Hepatitis C with liver cirrhosis PUD GERD history of ESBL E. coli pyelonephritis Plan continue Rocephin; repeat blood cx and 2D echo are negative - will need at least 2 weeks of antibiotics - can switch to PO Vantin as discussed with Dr. Saha previously discussed with Dr. Giraldo - ascitic fluid has been sent for cultures and it has no growth - Surgery monitoring the hernia overall prognosis is poor
--- NOTE | 2018-09-15 00:20 | PN ---
DATE: 09/14/2018 SUBJECTIVE: The patient is 73 years old. Seen and examined. Complaining of generalized weakness, too weak to walk around, and high risk for fall if sent home, so being arranged for subacute rehab. PHYSICAL EXAMINATION: GENERAL: On examination today, looks weak, tired, pale. VITAL SIGNS: Afebrile, pulse 59, respirations 18, and blood pressure 109/74. LUNGS: Bilateral fair airflow. No rhonchi or crackle. HEART: S1 and S2 audible. ABDOMEN: Soft with ascites noted. She has a spinal catheter in place. LABORATORY EXAMINATION: WBC 6.7, hemoglobin 11.4, hematocrit 35.5, and platelet 99. Chemistries: Sodium 132, potassium 5.2, chloride 102, CO2 of 23, BUN 41, creatinine 1.1, and sugar of 196. ASSESSMENT AND PLAN: 1. Status post Streptococcus mitis bacteremia. 2. History of hypertension, currently running hypotensive. 3. Hepatitis C. 4. Cirrhotic ascites. 5. Esophageal varices. 6. Chronic atrial fibrillation. PLAN: We will continue the patient on current medications. She is on Rocephin 2 g daily for a total of 14 days. Arrangement is being made to transfer her to subacute rehab when she gets finished her antibiotics and gets physical therapy. Wilda Saha MD
[2018-09-15] MEDS: Insulin Lispro (humaLOG) MIX 75/25(10 ml) SC SCH ×2 (08:22→17:41)
[2018-09-15] MEDS: Insulin Lispro 1 UNITS/0.01 ML SC SCH ×3 (08:23→17:42)
[2018-09-15] MEDS: Insulin Detemir 100 units/ml Vial (Levemir) SC SCH (09:34)
[2018-09-15] MEDS: Oxycodone/Acetaminophen 5/325 mg Tab PO PRN ×2 (09:35→21:57)
[2018-09-15] MEDS: Amylase/Lipase/Protease 5,000 Units ECC PO SCH ×3 (09:38→17:42)
[2018-09-15] MEDS: cefTRIAXone 2 GM IN NS 2 GM/100 ML BAG IVPB SCH (09:38)
--- NOTE | 2018-09-15 10:10 | RAD ---
Date of service: 09/14/2018 PROCEDURE: Radiographs of the Lumbar Spine. HISTORY: pain/fall COMPARISON: No prior. FINDINGS: BONES: Normal alignment. No listhesis. No fracture. DISC SPACES: Unremarkable. OTHER FINDINGS: None. IMPRESSION: Unremarkable radiographs of the lumbar spine.
--- NOTE | 2018-09-15 10:23 | RAD ---
Date of service: 09/14/2018 HISTORY: pain/fall COMPARISON: No prior. FINDINGS: BONES: Alignment maintained. No fracture. Mild curvature of the upper thoracic spine convex to the right DISC SPACES: Normal. SOFT TISSUES: Normal. OTHER FINDINGS: None. IMPRESSION: No evidence of compression fracture
--- NOTE | 2018-09-15 13:20 | CP.PCM.PN ---
Subjective - Date & Time of Evaluation Date of Evaluation: 09/15/18 Time of Evaluation: 09:20 - Subjective Subjective: Comfortable, no fevers, not in distress, has a little more energy today. Objective - Vital Signs/Intake and Output Vital Signs (last 24 hours): Temp Pulse Resp BP Pulse Ox 97.8 F 69 18 109/74 100 09/14/18 14:00 09/14/18 14:00 09/14/18 14:00 09/14/18 14:00 09/14/18 14:00 Intake and Output: 09/14/18 09/14/18 06:59 18:59 Intake Total 120 Balance 120 - Medications Medications: Current Medications Amylase (Pancrease 18014 U-5000 U-53262 U) 5,000 unit PO TID [facility] Last Admin: 09/14/18 14:23 Dose: 5,000 unit Apixaban (Eliquis) 5 mg PO DAILY [facility]; Protocol Last Admin: 09/14/18 09:50 Dose: 5 mg Furosemide (Lasix) 40 mg PO DAILY [facility] Last Admin: 09/14/18 09:50 Dose: 40 mg Ceftriaxone Sodium (Rocephin 2 Gm Ivpb) 2 gm in 100 mls @ 100 mls/hr IVPB DAILY [facility]; Protocol Last Admin: 09/14/18 09:49 Dose: 100 mls/hr Insulin Detemir (Levemir) 20 unit SC DAILY [facility] Last Admin: 09/14/18 09:49 Dose: 20 u Insulin Human Lispro (Humalog) 10 units SC AC [facility] Last Admin: 09/14/18 11:57 Dose: 10 units Insulin Lispro Protam/Lispro Human (Humalog Mix 75/25) 8 units SC ACBD [facility] Last Admin: 09/14/18 08:42 Dose: 8 units Lorazepam (Ativan) 1 mg PO HS [facility]; Protocol Last Admin: 09/13/18 23:04 Dose: 1 mg Nadolol (Corgard) 20 mg PO DAILY [facility] Last Admin: 09/14/18 09:49 Dose: 20 mg Ondansetron HCl (Zofran Inj) 4 mg IVP Q6H PRN PRN Reason: Nausea/Vomiting Last Admin: 09/08/18 12:38 Dose: 4 mg Oxycodone/Acetaminophen (Percocet 5/325 Mg Tab) 1 tab PO Q6H PRN PRN Reason: Pain, moderate (4-7) Stop: 09/16/18 15:13 Last Admin: 09/14/18 09:50 Dose: 1 tab Sucralfate (Carafate Tab) 1 gm PO AC [facility] Last Admin: 09/14/18 11:57 Dose: 1 gm - Labs Labs: 09/14/18 07:30 09/14/18 07:30 PT 16.0 SECONDS (9.4-12.5) H 09/07/18 11:40 INR 1.38 09/07/18 11:40 APTT 30.1 Seconds (25.1-36.5) 09/07/18 11:40 - Constitutional Appears: Chronically Ill - Head Exam Head Exam: NORMAL INSPECTION - Respiratory Exam Respiratory Exam: Decreased Breath Sounds - Cardiovascular Exam Cardiovascular Exam: +S1, +S2 - GI/Abdominal Exam GI & Abdominal Exam: Soft. absent: Tenderness Assessment and Plan - Assessment and Plan (Free Text) Plan: Assessment sepsis due to Strep mitis bacteremia, source unclear in this patient with abdominal catheter, and abdominal wall hernia history of UTI with pyelonephritis with Proteus history of Sepsis R/O spontaneous bacterial peritonitis S/P paracentesis Hepatitis C with liver cirrhosis PUD GERD history of ESBL E. coli pyelonephritis Plan continue Rocephin; repeat blood cx and 2D echo are negative - will need at least 2 weeks of antibiotics - can switch to PO Vantin as discussed with Dr. Saha previously discussed with Dr. Giraldo - ascitic fluid has been sent for cultures and it has no growth - Surgery monitoring the hernia overall prognosis is poor
--- NOTE | 2018-09-15 20:29 | DS ---
HISTORY OF PRESENT ILLNESS: The patient is 73-year-old. She was seen in my office, had slight fever in the office, she had 102. She was advised to come to ER. She was found to be bacteremia with Streptococcus mitis. She has been on IV antibiotics. Today is the first time, she started to feel better. She has so little energy, eating better. The patient is extremely weak, high risk for fall at home, so she is being transferred to subacute rehab today. PHYSICAL EXAMINATION: GENERAL: She is awake, alert, oriented, and communicative. VITAL SIGNS: She is afebrile, pulse 68, respirations 18, blood pressure 105/54. LUNGS: Bilateral fair airflow. No rhonchi or crackle. HEART: S1 and S2 audible. ABDOMEN: Soft and nontender. No rebound. No guarding. She has ascites with the catheter in her lower belly. NEUROLOGIC: The patient is awake, alert, oriented, and able to communicate. LABORATORY DATA: Blood sugar is 167. ASSESSMENT: 1. Streptococcus mitis bacteremia. 2. Coronary artery disease, status post angioplasty. 3. Chronic atrial fibrillation. 4. Status post hepatic encephalopathy. 5. Cirrhosis of the liver. 6. Hepatitis C. 7. Esophageal varices. 8. Insulin dependent diabetes. PLAN: We will drain her ascites today. I will switch antibiotic to p.o. Vantin 200 mg daily and she will be transferred to subacute rehab. Wilda Saha MD
[2018-09-16] MEDS: Insulin Lispro (humaLOG) MIX 75/25(10 ml) SC SCH (08:30)
[2018-09-16] MEDS: Insulin Lispro 1 UNITS/0.01 ML SC SCH ×2 (08:30→12:07)
[2018-09-16] MEDS: Insulin Detemir 100 units/ml Vial (Levemir) SC SCH (09:08)
[2018-09-16] MEDS: Amylase/Lipase/Protease 5,000 Units ECC PO SCH (09:08)
[2018-09-16 09:12] VITALS: BP 112/64; PULSE 61
[2018-09-16 09:13] VITALS: TEMP 98.2; O2SAT 90
[2018-09-16] MEDS: cefTRIAXone 2 GM IN NS 2 GM/100 ML BAG IVPB SCH (12:07)
--- NOTE | 2018-09-16 22:41 | DS ---
HISTORY OF PRESENT ILLNESS: The patient is 73-year-old, seen and examined. The patient was admitted after she was found to have fever of 102 in the office. Her initial workup showed Streptococus mitis UTI, has been on IV antibiotics, seemed to be deconditioned, had fall while in hospital, being transferred to today. PHYSICAL EXAMINATION: GENERAL: She is awake, alert, oriented, and communicative. VITAL SIGNS: respirations 18, blood pressure 112/64. LUNGS: Bilateral fair air flow. No rhonchi or crackle. HEART: S1, S2 audible. ABDOMEN: Soft. She had ascites drained yesterday. She had a spinal catheter placed in her mid lower abdominal area. EXTREMITIES: Bilateral leg, no edema. LABORATORY DATA: WBC 6.7, hemoglobin 11.4, hematocrit 35, platelet 99. Chemistry; blood sugar is 194, repeat blood culture done negative. ASSESSMENT: 1. Streptococus mitis, repeat cultures negative. 2. Reducible ventral hernia. 3. Degenerative disk disease. 4. History of hypertension, currently running hypotensive. 5. Hepatitis C. 6. Cirrhosis of the liver. PLAN: The patient is being discharge today. She will be switched to p.o. since she has a poor access. She will receive physical therapy. We will continue on her medication as prior to admission. Wilda Saha MD
== END 2018-09-16 12:21 | DRG 872 ==
LOC: ED 10:20 → ERH 13:28 → 5RSO 19:21 → OBSVTOIN 09-08 12:26
PROVIDERS: ADMIT Internal Medicine; ATTEND Internal Medicine
PROC: 30233N1 Transfusion of Nonautologous Red Blood Cells into Peripheral Vein, Percutaneous Approach (ICD-10-PCS; 2018-09-08)
PROC: 0W9G3ZX Drainage of Peritoneal Cavity, Percutaneous Approach, Diagnostic (ICD-10-PCS; principal; 2018-09-09)
DX: A40.8 Other streptococcal sepsis (principal); D61.818 Other pancytopenia; K86.1 Other chronic pancreatitis; K76.6 Portal hypertension; I85.10 Secondary esophageal varices without bleeding; R18.8 Other ascites; E87.5 Hyperkalemia; I10 Essential (primary) hypertension; K74.60 Unspecified cirrhosis of liver; K76.1 Chronic passive congestion of liver; K43.9 Ventral hernia without obstruction or gangrene; I48.2 Chronic atrial fibrillation; I25.10 Atherosclerotic heart disease of native coronary artery without angina pectoris; H40.9 Unspecified glaucoma; E78.5 Hyperlipidemia, unspecified; K21.9 Gastro-esophageal reflux disease without esophagitis; E86.0 Dehydration; K29.70 Gastritis, unspecified, without bleeding; E11.9 Type 2 diabetes mellitus without complications; K27.9 Peptic ulcer, site unspecified, unspecified as acute or chronic, without hemorrhage or perforation; R26.2 Difficulty in walking, not elsewhere classified; Z85.3 Personal history of malignant neoplasm of breast; Z85.42 Personal history of malignant neoplasm of other parts of uterus; Z95.5 Presence of coronary angioplasty implant and graft; Z79.01 Long term (current) use of anticoagulants; Z86.19 Personal history of other infectious and parasitic diseases; Z90.11 Acquired absence of right breast and nipple; Z79.4 Long term (current) use of insulin; Z87.440 Personal history of urinary (tract) infections; Z92.3 Personal history of irradiation; Z88.2 Allergy status to sulfonamides

== ENCOUNTER 2018-10-06 11:54 | Inpatient (IN) | payer MEDICARE ==
--- NOTE | 2018-10-06 12:42 | ED PDOC ---
Arrival/HPI - General Historian: Patient, Family - History of Present Illness Narrative History of Present Illness (Text): 10/06/18 13:03 73 y/o F with PMHx of cirrhosis s/p routine paracentesis by home visiting nurses via peritoneal catheter(), hep c, esophageal varices, afib on eliquis (on hold from [facility]), CAD s/p angioplasty, IDDM, CKD, R breast Ca s/p chemoradiation presents to ED with complaints of RUQ abdominal pressure, and diffuse abdominal distention. Pt reports she was recently admitted to [facility] for hepatic encephalopathy/AMS (09/27/18) and discharged 10/05/18. She underwent paracentesis during her admission. Pt reports visiting nurse was unable to drain fluid from peritoneal cather yesterday, and she had noticed increased abdominal distention leading to pain. She reports significant abdominal pain, confusion, headache, dizziness, fevers, chills, n/v/c/d, chest pain, palpitations, SOB. PMD: Dr. Saha GI: Dr. Chris Self (stan[place]) Time/Duration: Prior to Arrival Symptom Onset: Sudden Symptom Course: Unchanged Quality: Pressure Severity Level: Moderate Context: Sitting <Brianda Perez - Last Filed: 10/06/18 18:16> <Wayne Berger - Last Filed: 10/06/18 18:34> - General Chief Complaint: Abdominal Pain Time Seen by Provider: 10/06/18 11:57 Past Medical History - Provider Review Nursing Documentation Reviewed: Yes <Brianda Perez - Last Filed: 10/06/18 18:16> - Infectious Disease Hx of Infectious Diseases: None - Tetanus Immunization Tetanus Immunization: Unknown - Reproductive Menopause: Yes - Cardiac Hx Cardiac Disorders: Yes Hx Hypertension: Yes - Pulmonary Hx Respiratory Disorders: No (denies) - Neurological Hx Neurological Disorder: No - HEENT Hx HEENT Disorder: Yes (WEARS RX GLASSES) Hx Cataracts: Yes (B/L SX) Hx Glaucoma: Yes (B/L SX) - Renal Hx Renal Disorder: No - Endocrine/Metabolic Hx Diabetes Mellitus Type 1: Yes - Hematological/Oncological Hx Blood Disorders: Yes Hx Anemia: Yes Hx Cancer: Yes (breast) Hx Chemotherapy: Yes Hx Cirrhosis: Yes (ASCITIS) Hx Hepatitis C: Yes (from blood transfusion) - Integumentary Hx Dermatological Disorder: No - Musculoskeletal/Rheumatological Hx Arthritis: Yes (knees) - Gastrointestinal Hx Gastrointestinal Disorders: Yes Hx Gall Bladder Disease: Yes Hx Gastroesophageal Reflux: Yes Hx Liver Failure: Yes - Genitourinary/Gynecological Hx Genitourinary Disorders: Yes Hx Urinary Tract Infection: Yes - Psychiatric Hx Psychophysiologic Disorder: Yes (INSOMNIA) Hx Depression: No Hx Emotional Abuse: No Hx Physical Abuse: No Hx Substance Use: No - Surgical History Hx Appendectomy: Yes Hx Cardiac Catheterization: Yes (2011) Hx Cholecystectomy: Yes Hx Coronary Stent: Yes (2011) Hx Hysterectomy: Yes Hx Mastectomy: Yes (RIGHT) Hx Orthopedic Surgery: No - Anesthesia Hx Anesthesia: Yes Hx Anesthesia Reactions: No Hx Malignant Hyperthermia: No - Suicidal Assessment Feels Threatened In Home Enviroment: No <Wayne Berger - Last Filed: 10/06/18 18:34> Family/Social History - Physician Review Nursing Documentation Reviewed: Yes Family/Social History: Unknown Family HX <Brianda Perez - Last Filed: 10/06/18 18:16> Smoking Status: Never Smoked Hx Alcohol Use: No Hx Substance Use: No Hx Substance Use Treatment: No <Wayne Berger - Last Filed: 10/06/18 18:34> Allergies/Home Meds <Brianda Perez - Last Filed: 10/06/18 18:16> <Wayne Berger - Last Filed: 10/06/18 18:34> Allergies/Adverse Reactions: Allergies ciprofloxacin Allergy (Severe, Verified 08/10/18 18:06) RASH nitrofurantoin Allergy (Severe, Verified 08/10/18 18:06) RASH Sulfa (Sulfonamide Antibiotics) Allergy (Severe, Verified 08/10/18 18:06) RASH Home Medications: Home Meds Medication Instructions Recorded Confirmed Insulin Detemir [Levemir] 20 unit SC DAILY 09/27/13 09/07/18 Apixaban [Eliquis] 5 mg PO DAILY 01/08/15 09/07/18 Ramipril [Altace] 10 mg PO DAILY 01/08/15 09/07/18 Insulin Aspart, Recombinant 10 units SUBCUT AC 08/03/16 09/07/18 [Novolog] Nadolol [Corgard] 20 mg PO DAILY 08/03/16 09/07/18 Lipase/Protease/Amylase [Pancreaze 1 each PO TID 08/10/18 09/07/18 4,200 Unit Cap] Sucralfate [Carafate] 1 tab PO TID 08/10/18 09/07/18 Furosemide [Lasix] 40 mg PO DAILY 09/07/18 09/07/18 Spironolactone [Aldactone] 50 mg PO QWK 09/07/18 09/07/18 Review of Systems - Review of Systems Constitutional: Normal Eyes: Normal ENT: Normal Respiratory: Normal Cardiovascular: Normal. absent: Chest Pain, Palpitations Gastrointestinal: Abdominal Pain, Other (Abdominal distention). absent: Constipation, Diarrhea, Hematochezia, Hematemesis Genitourinary Female: Normal Musculoskeletal: Normal Skin: Normal Neurological: Normal. absent: Headache, Dizziness, Focal Weakness, Speech Changes, Seizure Endocrine: Normal Hemo/Lymphatic: Normal Psychiatric: Normal <Brianda Perez - Last Filed: 10/06/18 18:16> Physical Exam Vital Signs Reviewed: Yes Vital Signs Temp Pulse Resp BP Pulse Ox 10/06/18 12:10 97.5 F L 65 18 135/81 98 Temperature: Afebrile Blood Pressure: Normal Pulse: Regular Respiratory Rate: Normal Appearance: Positive for: Well-Appearing, Non-Toxic, Comfortable Pain Distress: None Mental Status: Positive for: Alert and Oriented X 3 - Systems Exam Head: Present: Atraumatic, Normocephalic Pupils: Present: PERRL Extroacular Muscles: Present: EOMI Conjunctiva: Present: Normal Mouth: Present: Moist Mucous Membranes Neck: Present: Normal Range of Motion Respiratory/Chest: Present: Clear to Auscultation, Good Air Exchange. No: Respiratory Distress, Accessory Muscle Use Cardiovascular: Present: Normal S1, S2, Irregular Rhythm. No: Murmurs Abdomen: Present: Distention, Normal Bowel Sounds, Other (bedside u/s revealing abdominal ascites). No: Tenderness, Peritoneal Signs, Rebound, Guarding, Rovsing's Sign Present Back: Present: Normal Inspection. No: CVA Tenderness Upper Extremity: Present: Neurovascularly Intact, Other (echymosis noted b/l u/e). No: Cyanosis, Edema Lower Extremity: Present: Normal Inspection, Swelling (1+ b/l). No: CALF TENDERNESS, Charlie's Sign, Tenderness Neurological: Present: GCS=15, CN II-XII Intact, Speech Normal, Motor Func Grossly Intact, Memory Normal Skin: Present: Warm, Dry, Normal Color Psychiatric: Present: Alert, Oriented x 3, Normal Insight, Normal Concentration <Brianda Perez - Last Filed: 10/06/18 18:16> Vital Signs Temp Pulse Resp BP Pulse Ox 10/06/18 12:10 97.5 F L 65 18 135/81 98 <Wayne Berger T - Last Filed: 10/06/18 18:34> Medical Decision Making ED Course and Treatment: 10/06/18 13:16 Impression: 73 y/o F with PMHx of cirrhosis s/p routine paracentesis by home visiting nurses via peritoneal catheter(), hep c, esophageal varices, afib on eliquis (on hold from [facility]), CAD s/p angioplasty, IDDM, CKD, R breast Ca s/p chemoradiation presents to ED with abdominal pressure and distention after failed peritoneal drainage by home visiting nurse. Prior visits and results have been reviewed Differential diagnosis includes but is not limited: Nonfunctioning peritoneal catheter Abdominal ascites cirrhosis afib Plan: Labs EKG Reassess & dispo 10/06/18 18:16 Progress Notes: Case discussed with PMD, Dr. Saha. Will accept to her service. 10/06/18 18:19 - RAD Interpretation Narrative RAD Interpretations (Text): 10/06/18 16:02 Chest Xray: Hypoinflation. Moderate pulmonary venous congestion. Central vascular prominence. Cardiomegaly Radiology Orders: 10/06/18 12:53 CHEST PORTABLE [RAD] Stat - EKG Interpretation EKG Interpretation (Text): 10/06/18 15:49 Atrial fibrillation Left axis deviation RBBB HR 69bpm QTc: 492ms <Brianda Perez - Last Filed: 10/06/18 18:16> ED Course and Treatment: Seen and examined with resident. 73 year old F p/w abdominal pain, R sided to R flank x few days and ascites drainage catheter not functioning. On exam, alert, oriented, abdominal distention. 10/06/18 14:14 Impression: 73 year old female presents to emergency department complaining of RUQ abdominal pressure and distention. In agreement with resident note which contains more details about the patient. Patient seen and evaluated with resident. Came up with plan and treatment together. Plan: -- Labs -- EKG -- Chest X-ray - RAD Interpretation [employer]anger: Radiologist - EKG Interpretation Type: 12 lead EKG <Wayne Berger - Last Filed: 10/06/18 18:34> - PA / THORACIC MEDICINE SPECIALIST / Resident Statement MD/DO has reviewed & agrees with the documentation as recorded. MD/DO has examined the patient and agrees with the treatment plan. <Brianda Perez - Last Filed: 10/06/18 18:16> Disposition/Present on Arrival - Present on Arrival Any Indicators Present on Arrival: Yes - Disposition Have Diagnosis and Disposition been Completed?: Yes Disposition Time: 18:18 <Brianda Perez - Last Filed: 10/06/18 18:16> - Present on Arrival History of DVT/PE: No History of Uncontrolled Diabetes: No Urinary Catheter: No History of Decub. Ulcer: No History Surgical Site Infection Following: CABG - Mediastinitis, None <Wayne Berger - Last Filed: 10/06/18 18:34> - Disposition Diagnosis: Ascitic fluid, EDER (acute kidney injury) Disposition: HOSPITALIZED Patient Problems: Current Active Problems Problem Status Onset EDER (acute kidney injury) Acute Ascitic fluid Acute Condition: FAIR Forms: [facility] (Greek)
--- NOTE | 2018-10-06 13:24 | RAD ---
HISTORY: abdominal distention COMPARISON: Chest x-ray performed 09/07/18 TECHNIQUE: Chest, one view. FINDINGS: LUNGS: Hypoinflation. Mild pulmonary venous congestion. Central vascular prominence. PLEURA: No significant pleural effusion identified. No definite pneumothorax . CARDIOVASCULAR: Cardiomegaly. Atherosclerotic calcifications. OSSEOUS STRUCTURES: Osseous demineralization. Degenerative changes. VISUALIZED UPPER ABDOMEN: Unremarkable. OTHER FINDINGS: Right axillary clips. IMPRESSION: Hypoinflation. Moderate pulmonary venous congestion. Central vascular prominence. Cardiomegaly.
[2018-10-06 16:56] LABS: BASO # 0.01 K/mm3 (0.0-2.0); BASO % 0.3 % (0.0-3.0); EOS # 0.2 (0.0-0.7); EOS % 5.7 % (1.5-5.0); GRAN # 2.12 (1.4-6.5); GRAN % 70.7 % (50.0-68.0); HEMOGLOBIN 8.8 g/dL (12.0-16.0); LYMPH # 0.6 (1.2-3.4); MEAN CELL VOLUME 89.2 fl (80.0-105.0); MEAN CORPUSCULAR HEMOGLOBIN 29.6 pg (25.0-35.0); MEAN CORPUSCULAR HGB CONC 33.2 g/dl (31.0-37.0); MEAN PLATELET VOLUME 9.5 fl (7.0-11.0); MONO # 0.1 (0.1-0.6); MONO % 4.3 % (1.0-6.0); RBC 2.97 10^6/uL (3.5-6.1); RED CELL DISTRIBUTION WIDTH 16.8 % (11.5-14.5)
[2018-10-06 17:06] LABS: ALB/GLOB RATIO 0.8 (1.1-1.8); CALCIUM 8.5 mg/dL (8.4-10.5); INR 1.21; PARTIAL THROMBOPLASTIN TIME 33.2 Seconds (25.1-36.5); PROTHROMBIN TIME 13.9 SECONDS (9.4-12.5)
[2018-10-06 17:35] LABS: PLATELET COUNT 41 10^3/uL (120.0-450.0)
--- NOTE | 2018-10-06 20:22 | CARD ---
APPROVED REPORT Date of service: 10/06/2018 EKG Measurement Heart [id number] <Conclusion> Atrial fibrillation Left axis deviation Right bundle branch block Possible Lateral infarct, age undetermined Abnormal ECG
[2018-10-06] MEDS: Insulin Lispro (humaLOG) MIX 75/25(10 ml) SC SCH (20:52)
--- NOTE | 2018-10-06 22:56 | HP ---
DATE OF EXAM: 10/06/2018 HISTORY OF PRESENT ILLNESS: The patient is [id number] known to me from multiple previous admissions. The patient was admitted on 09/08/2018 with generalized weakness. She was found to have bacteremia with Streptococcus mitis and she was treated with IV antibiotics. She has generalized weakness, difficulty walking, had multiple fall at home, so she was transferred to [facility] to get rehab. She had altered mental status, so ambulance was called and she was sent to [facility]. She was treated there and discharged and she came home the previous day. Today when visiting nurse went to visit and wanted to drain her paracentesis catheter, it was blocked. Fluid was not coming out. The patient complaining of abdominal discomfort, bloating, and distention, so she was brought to emergency room for further evaluation. ER physician attempted to drain the fluid, but that seems to be blocked, so she is being admitted for further management. PAST MEDICAL HISTORY: 1. Significant for multiple admissions for hepatic encephalopathy. 2. Chronic atrial fibrillation. 3. Coronary artery disease status post angioplasty. 4. Peptic ulcer disease. 5. Hepatitis C, status post cirrhosis of liver. 6. History of recurrent breast CA status post mastectomy and likely she just finished radiation for residual lymph nodes. 7. History of cirrhotic ascites since she get drained 3 liters twice a week. 8. Chronic anemia. 9. Thrombocytopenia. ALLERGIES: SHE IS ALLERGIC TO CIPRO, NITROFURANTOIN, AND SULFA MEDICATIONS. MEDICATIONS AT HOME: She is on nadolol. She is on spironolactone 50 mg daily. She is on pancreatic enzymes. She is diabetic and takes insulin. SOCIAL HISTORY: She used to socially drink, but not for many years. PHYSICAL EXAMINATION GENERAL: She looks weak, pale, tired.: VITAL SIGNS: She is afebrile, pulse 65, respirations 18, blood pressure 135/81. LUNGS: Bilateral fair airflow. No rhonchi or crackle. HEART: S1 and S2 audible. ABDOMEN: Distended with fluid . EXTREMITIES: Bilateral legs, +1 edema. LABORATORY DATA: WBC 3.0, hemoglobin 8.8, hematocrit 26.5, platelet 41. PT 13.9, INR 1.21. Chemistry; sodium 135, potassium 4.8, chloride 106, CO2 of 23, BUN 45, creatinine 1.3, blood sugar 286. LFTs are within normal limits. ASSESSMENT: 1. Abdominal distention secondary to malfunctioning of spinal catheter. 2. Hepatic encephalopathy. 3. Cirrhosis of the liver. 4. Hepatitis C. 5. Insulin-dependent diabetes. 6. Hypertension. 7. Chronic atrial fibrillation. 8. Coronary artery disease, status post angioplasty. PLAN: We will start her on IV Lasix and Aldactone. Dr. Kenny Munoz evaluate her catheter tomorrow for possible drainage tomorrow. We will follow up her electrolyte, continue her on Eliquis, monitor her blood sugar. We will followup in a.m. Wilda Saha MD
[2018-10-07] MEDS ORDERED: Morphine 2 mg/ml ISec IVP ONE (01:02)
[2018-10-07 01:58] VITALS: BMI 29.5
[2018-10-07] MEDS ORDERED: INSULIN ASPART RECOMBINANT 10 UNIT SUBCUT SCH (07:30)
[2018-10-07] MEDS: Insulin Lispro 1 UNITS/0.01 ML SC SCH ×3 (08:08→17:44)
[2018-10-07] MEDS: Insulin Lispro (humaLOG) MIX 75/25(10 ml) SC SCH ×2 (08:40→17:48)
[2018-10-07] MEDS ORDERED: INSULIN DETEMIR 20 UNIT SC SCH (10:00)
[2018-10-07] MEDS ORDERED: Insulin Detemir 100 units/ml Vial (Levemir) SC SCH ×2 (10:00→22:00)
--- NOTE | 2018-10-07 13:35 | PN ---
DATE: 10/07/2018 SUBJECTIVE: The patient is 73 years old, seen and examined, complained of feeling groggy, complained of back pain, complained of decrease appetite, complained of getting weak and tired, was in rehab for sometime and was not satisfied and not improved much. PHYSICAL EXAMINATION: VITAL SIGNS: She is afebrile, pulse 66, respirations 19, blood pressure 126/56. LUNGS: Bilateral fair airflow. No rhonchi or crackle. HEART: S1 and S2 audible. ABDOMEN: Soft. Had drainage done on 09/26/2019, 100 mL fluid removed. LABORATORY DATA: Blood sugar is 193, ammonia level is 66. ASSESSMENT: 1. Malfunctioning catheter. 2. Cirrhosis liver and cirrhotic ascites. 3. Thrombocytopenia. 4. Chronic atrial fibrillation on anticoagulants. 5. Hepatitis C and cirrhosis secondary to . 6. Hypertension. 7. History of cancer breast status post mastectomy and followed up with radiation, generalized weakness, deconditioning, and difficulty walking. PLAN: I will start her on tramadol and avoid narcotics and out of bed to chair. If the patient remains stable, we will discharge plan for a.m. Wilda Saha MD
--- NOTE | 2018-10-07 16:59 | CP.PCM.CON ---
History of Present Illness - History of Present Illness History of Present Illness: PGY-4 GI Fellow Consult Note 73 yo Hisp Female with extensive PMH, including Cirrhosis (suspected 2/2 Hep C) with recurrent ascites, chronic AFib on apixaban, CAD s/p stent, HTN, DM, PUD with hx bleeding ulcer, CKD, and Breast CA s/p partial resection and chemo, and anemia who presents with abdominal distension and malfunctioning peritoneal catheter. She states that she normally has a visiting home nurse that visits her house 2x/week and drains her ascites via indwelling catheter. She states nurse was unable to drain her fluid suspecting some catheter malfunction. Fluid began to accumulated more causing nonspecific diffuse abdominal discomfort; therefore patient presenting for further evaluation. She denied any F/C, N/V/D, melena nor hematochezia. 12 point ROS negative other than stated above Last EGD was 1.5 yr ago as per patient, not in records system here. Pt reports most of her current medical workups and procedures are done in [place]. Last EGD on file here is from 2011 (grade II distal esophageal varices, 5mm polyp in distal stomach, portal hypertensive gastropathy in body and fundus, no biopsy due to low plt count) PMH: as above PSH: bi-weekly paracentesis, appendectomy, cholecystectomy, hysterectomy, Cardiac cath and stent placement, R breast lumpectomy Meds: Reviewed in chart Soc Hx: denies tobacco, alcohol, illicits, lives with PMD: Dr. Saha GI: Dr. Chris Self ([place]), previously Dr. Martines Past Patient History - Infectious Disease Hx of Infectious Diseases: None - Tetanus Immunizations Tetanus Immunization: Unknown - Past Social History Smoking Status: Never Smoked - CARDIAC Hx Cardiac Disorders: Yes Hx Hypercholesterolemia: Yes Hx Hypertension: Yes - PULMONARY Hx Respiratory Disorders: No (denies) - NEUROLOGICAL Hx Neurological Disorder: No - HEENT Hx HEENT Problems: Yes (WEARS RX GLASSES) Hx Cataracts: Yes (B/L SX) Hx Glaucoma: Yes (B/L SX) - RENAL Hx Chronic Kidney Disease: No - ENDOCRINE/METABOLIC Hx Endocrine Disorders: Yes Hx Diabetes Mellitus Type 1: Yes Hx Diabetes Mellitus Type 2: Yes - HEMATOLOGICAL/ONCOLOGICAL Hx Blood Disorders: Yes Hx Anemia: Yes Hx Cancer: Yes (breast) Hx Chemotherapy: Yes Hx Cirrhosis: Yes (ASCITIS) Hx Hepatitis C: Yes (from blood transfusion) - INTEGUMENTARY Hx Dermatological Problems: No - MUSCULOSKELETAL/RHEUMATOLOGICAL Hx Arthritis: Yes (knees) Hx Falls: No - GASTROINTESTINAL Hx Gastrointestinal Disorders: Yes Hx Gall Bladder Disease: Yes Hx Gastroesophageal Reflux: Yes Hx Liver Failure: Yes - GENITOURINARY/GYNECOLOGICAL Hx Genitourinary Disorders: Yes Hx Urinary Tract Infection: Yes - PSYCHIATRIC Hx Psychophysiologic Disorder: Yes (INSOMNIA) Hx Depression: No Hx Emotional Abuse: No Hx Physical Abuse: No Hx Substance Use: No - SURGICAL HISTORY Hx Surgeries: Yes Hx Appendectomy: Yes Hx Cardiac Catheterization: Yes (2011) Hx Cholecystectomy: Yes Hx Coronary Stent: Yes (2011) Hx Hysterectomy: Yes Hx Mastectomy: Yes (RIGHT Re,moval of lymph nodes) Hx Orthopedic Surgery: No Other/Comment: lumpectomy on R side, XRT - ANESTHESIA Hx Anesthesia: Yes Hx Anesthesia Reactions: No Hx Malignant Hyperthermia: No Meds Allergies/Adverse Reactions: Allergies Allergy/AdvReac Type Severity Reaction Status Date / Time ciprofloxacin Allergy Severe RASH Verified 08/10/18 18:06 nitrofurantoin Allergy Severe RASH Verified 08/10/18 18:06 Sulfa (Sulfonamide Allergy Severe RASH Verified 08/10/18 18:06 Antibiotics) - Medications Medications: Current Medications Amylase (Pancrease 31502 U-5000 U-20180 U) 5,000 unit PO TID [facility] Apixaban (Eliquis) 5 mg PO DAILY [facility]; Protocol Last Admin: 10/07/18 12:15 Dose: Not Given Sodium Chloride (Sodium Chloride 0.9%) 600 mls @ 50 mls/hr IV .Q12H [facility] Stop: 10/08/18 05:01 Insulin Detemir (Levemir) 20 unit SC HS [facility] Insulin Human Lispro (Humalog) 10 units SC AC [facility] Last Admin: 10/07/18 12:17 Dose: 10 u Insulin Lispro Protam/Lispro Human (Humalog Mix 75/25) 8 units SC ACBD [facility] Last Admin: 10/07/18 08:40 Dose: 8 units Lactulose (Enulose) 20 gm PO HS [facility] Nadolol (Corgard) 20 mg PO DAILY [facility] Last Admin: 10/07/18 09:46 Dose: 20 mg Spironolactone (Aldactone) 50 mg PO DAILY [facility] Last Admin: 10/07/18 09:20 Dose: 50 mg Tramadol HCl (Ultram) 50 mg PO TID [facility] Last Admin: 10/07/18 14:42 Dose: Not Given Physical Exam - Constitutional Appears: No Acute Distress, Chronically Ill - Head Exam Head Exam: ATRAUMATIC, NORMAL INSPECTION - Eye Exam Eye Exam: EOMI. absent: Scleral icterus - ENT Exam ENT Exam: Mucous Membranes Moist. absent: Mucous Membranes Dry - Respiratory Exam Respiratory Exam: NORMAL BREATHING PATTERN. absent: Accessory Muscle Use, Respiratory Distress - Cardiovascular Exam Cardiovascular Exam: REGULAR RHYTHM, RRR - GI/Abdominal Exam GI & Abdominal Exam: Distended, Normal Bowel Sounds, Soft. absent: Bruit, Diminished Bowel Sounds, Firm, Guarding, Mass, Organomegaly, Pulsatile Mass, Rebound, Rigid, Tenderness Additional comments: mildly distended but obese limiting exam, dressing in place overlying infraumbilical catheter. - Neurological Exam Neurological exam: Alert, CN II-XII Intact - Psychiatric Exam Psychiatric exam: Normal Affect, Normal Mood - Skin Skin Exam: Normal Color, Warm Results - Vital Signs Recent Vital Signs: Last Vital Signs Temp 97.6 F 10/07/18 06:00 Pulse 68 10/07/18 09:46 Resp 19 10/07/18 06:00 BP 126/66 10/07/18 09:46 Pulse Ox 99 10/07/18 06:00 - Labs Result Diagrams: 10/06/18 16:50 10/06/18 16:50 Labs: Laboratory Results - last 24 hr 10/06/18 10/06/18 10/06/18 16:50 16:50 16:50 WBC 3.0 L D RBC 2.97 L Hgb 8.8 L D Hct 26.5 L MCV 89.2 MCH 29.6 MCHC 33.2 RDW 16.8 H Plt Count 41 L* MPV 9.5 Gran % 70.7 H Lymph % (Auto) 19.0 L [place] % (Auto) 4.3 Eos % (Auto) 5.7 H Baso % (Auto) 0.3 Gran # 2.12 Lymph # (Auto) 0.6 L [place] # (Auto) 0.1 Eos # (Auto) 0.2 Baso # (Auto) 0.01 PT 13.9 H INR 1.21 APTT 33.2 Sodium 135 Potassium 4.8 Chloride 106 Carbon Dioxide 23 Anion Gap 10 BUN 45 H Creatinine 1.3 H Est GFR ( Amer) 49 Est GFR (Non-Af Amer) 40 POC Glucose (mg/dL) Random Glucose 285 H Calcium 8.5 Phosphorus 4.0 Magnesium 2.0 Total Bilirubin 0.8 AST 44 H ALT 40 Alkaline Phosphatase 115 Ammonia Total Protein 6.7 Albumin 3.0 Globulin 3.7 Albumin/Globulin Ratio 0.8 L Lipase 191 Blood Type Antibody Screen BBK History Checked 10/06/18 10/06/18 10/06/18 18:15 18:15 20:40 WBC RBC Hgb Hct MCV MCH MCHC RDW Plt Count MPV Gran % Lymph % (Auto) [place] % (Auto) Eos % (Auto) Baso % (Auto) Gran # Lymph # (Auto) [place] # (Auto) Eos # (Auto) Baso # (Auto) PT INR APTT Sodium Potassium Chloride Carbon Dioxide Anion Gap BUN Creatinine Est GFR ( Amer) Est GFR (Non-Af Amer) POC Glucose (mg/dL) 288 H Random Glucose Calcium Phosphorus Magnesium Total Bilirubin AST ALT Alkaline Phosphatase Ammonia 66 H Total Protein Albumin Globulin Albumin/Globulin Ratio Lipase Blood Type O POSITIVE Antibody Screen Negative BBK History Checked Patient has bt 10/07/18 10/07/18 10/07/18 02:40 07:25 11:31 WBC RBC Hgb Hct MCV MCH MCHC RDW Plt Count MPV Gran % Lymph % (Auto) [place] % (Auto) Eos % (Auto) Baso % (Auto) Gran # Lymph # (Auto) [place] # (Auto) Eos # (Auto) Baso # (Auto) PT INR APTT Sodium Potassium Chloride Carbon Dioxide Anion Gap BUN Creatinine Est GFR ( Amer) Est GFR (Non-Af Amer) POC Glucose (mg/dL) 241 H 215 H 193 H Random Glucose Calcium Phosphorus Magnesium Total Bilirubin AST ALT Alkaline Phosphatase Ammonia Total Protein Albumin Globulin Albumin/Globulin Ratio Lipase Blood Type Antibody Screen BBK History Checked Assessment & Plan - Assessment and Plan (Free Text) Assessment: 73 yo Hisp Female with cirrhosis c/b refractory ascites presenting with abd discomfort and malfunctioning peritoneal catheter. # Abd Discomfort: Due to worsening ascites due to malfunctioning peritoneal catheter. Symptoms improved after 3.1 L paracentesis and replacement of catheter by IR. No fluid studies sent. Plan: - Recommend close outpatient f/u with primary GI doctor [Dr. Chrsi Self ([place])] --- Defer catheter management, diuretics, etc. to Dr. Self --- Pt expressed understanding - Paracentesis per home nurse - Recommend cell count and differential with future lionel - Low Na diet Pt seen and examined with Dr. Carolina; please see attestation for further recs/changes
[2018-10-07] MEDS: Amylase/Lipase/Protease 5,000 Units ECC PO SCH (17:48)
[2018-10-07 18:33] VITALS: RESP 20
[2018-10-08 07:38] LABS: ALB/GLOB RATIO 0.8 (1.1-1.8); ALBUMIN 3.3 g/dL (3.0-4.8); CALCIUM 8.9 mg/dL (8.4-10.5)
[2018-10-08 07:53] LABS: BASO # 0.02 K/mm3 (0.0-2.0); BASO % 0.3 % (0.0-3.0); EOS # 0.4 (0.0-0.7); EOS % 5.8 % (1.5-5.0); GRAN # 4.54 (1.4-6.5); GRAN % 71.3 % (50.0-68.0); HEMOGLOBIN 9.8 g/dL (12.0-16.0); LYMPH # 0.7 (1.2-3.4); LYMPH % 10.4 % (22.0-35.0); MEAN CORPUSCULAR HEMOGLOBIN 28.9 pg (25.0-35.0); MEAN CORPUSCULAR HGB CONC 32.1 g/dl (31.0-37.0); MEAN PLATELET VOLUME 10.3 fl (7.0-11.0); MONO # 0.8 (0.1-0.6); MONO % 12.2 % (1.0-6.0); RBC 3.39 10^6/uL (3.5-6.1); WHITE BLOOD COUNT 6.4 10^3/uL (4.5-11.0)
[2018-10-08] MEDS: Insulin Lispro 1 UNITS/0.01 ML SC SCH ×2 (07:57→12:32)
[2018-10-08 09:03] VITALS: PULSE 67; TEMP 98; O2SAT 94
[2018-10-08] MEDS: Amylase/Lipase/Protease 5,000 Units ECC PO SCH ×2 (09:35→13:52)
[2018-10-08] MEDS: Insulin Lispro (humaLOG) MIX 75/25(10 ml) SC SCH (09:36)
[2018-10-08 09:46] VITALS: BP 124/97
[2018-10-08] MEDS ORDERED: PROTEASE PO SCH (10:00)
[2018-10-08] MEDS ORDERED: AMYLASE PO SCH (10:00)
[2018-10-08] MEDS ORDERED: LIPASE PO SCH (10:00)
--- NOTE | 2018-10-08 10:43 | PN ---
DATE: 10/08/[address] Carolina, Dr. Martines covering. SUBJECTIVE: The patient is sitting in chair, comfortable. She denies any abdominal pain. She is status post large volume paracentesis with removal of little over 3 liters. OBJECTIVE: VITAL SIGNS: Reveal temperature of 98, blood pressure 124/97, heart rate of 67. HEENT: Reveal sclerae to be white. Conjunctivae pink. NECK: Supple. CHEST: Lungs are clear. HEART: Reveals a regular rate and rhythm. ABDOMEN: Soft, nontender. She does have a peritoneal catheter in her lower abdomen. EXTREMITIES: Show no edema. LABORATORY DATA: Reveal white blood cell count 6.4, hemoglobin 9.8. Chemistries reveal BUN 42, creatinine 1.2, blood sugar of 48, AST 47, ALT 32. Serum ammonia 44, albumin 3.3. IMPRESSION: A 73-year-old female with cirrhosis of the liver with increasing ascites secondary to malfunctioning peritoneal catheter. The patient had large volume paracentesis of over 3 liters and feels much better with less abdominal discomfort. Her peritoneal catheter was changed. RECOMMENDATIONS: The patient is stable from GI standpoint for discharge home with outpatient followup. She will get outpatient paracentesis through the peritoneal catheter by visiting nurse. Santos Martines MD
--- NOTE | 2018-10-08 12:30 | DS ---
HISTORY OF PRESENT ILLNESS: The patient is 73-year-old, seen and examined, feels a lot better, the patient came in because of increase in abdominal pain. The patient's spiral catheter tip broke, so they were unable to drain her at home, so she came to emergency room for malfunction. She was found to be very confused, disoriented, and groggy. Her ammonia level was 66. The patient was given a dose of lactulose. The patient did not respond well to morphine, so after she received a dose of tramadol and she had lactulose, she did well. PHYSICAL EXAMINATION: GENERAL: This morning, she is fully awake, alert, and oriented. VITAL SIGNS: She is afebrile, pulse 67, respirations 20, and blood pressure 124/97. LUNGS: Bilateral fair airflow. No rhonchi or crackle. HEART: S1 and S2 audible. ABDOMEN: Soft and nontender. No rebound. No guarding. NEUROLOGIC: The patient is awake, alert, oriented, and able to communicate. LABORATORY DATA: WBC 6.4, hemoglobin 9.8, hematocrit 31.5, and platelet 77. Chemistry; sodium 139, potassium 4.8, chloride 110, CO2 of 25, BUN 42, creatinine 1.2, and blood sugar 148. Followup visit T1. ASSESSMENT: 1. Status post hepatic encephalopathy. 2. Malfunctioning of spiral catheter. 3. Cirrhotic ascites. 4. Hepatitis C. 5. Cirrhosis of the liver. 6. Coronary artery disease status post angioplasty. 7. Chronic atrial fibrillation. PLAN: We will continue the patient on nadolol and Eliquis. She is on Aldactone. She will continue lactulose daily at home. She was given prescription of lactulose. Continue . We will follow up the patient in 2 weeks in office. Wilda Saha MD
== END 2018-10-08 14:35 | disposition home or self-care (01) | DRG 920 ==
LOC: ED 11:54 → ERH 18:22 → 3RNO 23:40
PROVIDERS: ADMIT Internal Medicine; ATTEND Internal Medicine
PROC: 0W9G3ZZ Drainage of Peritoneal Cavity, Percutaneous Approach (ICD-10-PCS; principal; 2018-10-07)
PROC: 0J2TXYZ Change Other Device in Trunk Subcutaneous Tissue and Fascia, External Approach (ICD-10-PCS; 2018-10-07)
DX: T85.611A Breakdown (mechanical) of intraperitoneal dialysis catheter, initial encounter (principal); I85.00 Esophageal varices without bleeding; K76.6 Portal hypertension; N17.9 Acute kidney failure, unspecified; R18.8 Other ascites; R78.81 Bacteremia; N18.4 Chronic kidney disease, stage 4 (severe); K72.90 Hepatic failure, unspecified without coma; I25.10 Atherosclerotic heart disease of native coronary artery without angina pectoris; I48.2 Chronic atrial fibrillation; K21.9 Gastro-esophageal reflux disease without esophagitis; K31.89 Other diseases of stomach and duodenum; K74.60 Unspecified cirrhosis of liver; N18.9 Chronic kidney disease, unspecified; Z79.01 Long term (current) use of anticoagulants; Z79.4 Long term (current) use of insulin; Z79.899 Other long term (current) drug therapy; Z85.3 Personal history of malignant neoplasm of breast; Z87.11 Personal history of peptic ulcer disease; Z87.440 Personal history of urinary (tract) infections; B19.20 Unspecified viral hepatitis C without hepatic coma; B95.4 Other streptococcus as the cause of diseases classified elsewhere; D69.6 Thrombocytopenia, unspecified; E11.22 Type 2 diabetes mellitus with diabetic chronic kidney disease; I12.9 Hypertensive chronic kidney disease with stage 1 through stage 4 chronic kidney disease, or unspecified chronic kidney disease; E78.00 Pure hypercholesterolemia, unspecified; Z90.10 Acquired absence of unspecified breast and nipple; Z90.49 Acquired absence of other specified parts of digestive tract; Z90.710 Acquired absence of both cervix and uterus; Z92.21 Personal history of antineoplastic chemotherapy; Z92.3 Personal history of irradiation; Z95.5 Presence of coronary angioplasty implant and graft; Y84.8 Other medical procedures as the cause of abnormal reaction of the patient, or of later complication, without mention of misadventure at the time of the procedure; Z98.42 Cataract extraction status, left eye; Z98.41 Cataract extraction status, right eye; D64.9 Anemia, unspecified; Z88.1 Allergy status to other antibiotic agents; Z88.2 Allergy status to sulfonamides; Z88.8 Allergy status to other drugs, medicaments and biological substances